=== PATIENT | female | born 1970 | race Caucasian/White ===

== ENCOUNTER → 2020-07-19 18:01 | Outpatient (BNVA) | payer BC, SELFPAY | PROVIDERS: Visit Provider Family Medicine | DX: M21.41 Flat foot [pes planus] (acquired), right foot; M21.42 Flat foot [pes planus] (acquired), left foot; M25.50 Pain in unspecified joint | CPT/HCPCS: 84550; 85651; 86038; 86431 ==

== ENCOUNTER 2020-07-28 16:47 | Emergency (ER) | payer BC, SELFPAY ==
[2020-07-28 18:16] LABS: Basophils % 0.3 %; Eosinophils # 0.2 10^3/uL (0.0-0.8); Eosinophils % 1.3 %; Hematocrit 36.8 % (37.0-47.0); Hemoglobin 12.2 g/dL (11.5-15.3); Lymphocytes # 3.7 10^3/uL (0.8-4.8); Lymphocytes % 30.2 %; Mean Corpuscular HGB Conc 33.2 g/dL (30.0-36.0); Mean Corpuscular Hemoglobin 30.7 pg (28.0-34.0); Mean Corpuscular Volume 92.7 fL (81-99); Mean Platelet Volume 9.5 fL (7.4-10.4); Monocytes # 0.7 10^3/uL (0.2-0.9); Monocytes % 5.8 %; Neutrophils # 7.64 10^3/uL (1.8-7.7); Neutrophils % 62.2 %; Nucleated Red Blood Cells % 0 %; Platelet Count 367 10^3/cmm (130-400); Red Blood Count 3.97 10^6/uL (4.1-5.3); Red Cell Distribution Width 13.2 % (12.1-15.1); White Blood Count 12.3 10^3/uL (4.0-10.0)
[2020-07-28 18:18] VITALS: BP 116/79; PULSE 74; RESP 16; TEMP 37.2; O2SAT 99; BMI 41.1
[2020-07-28 18:31] LABS: Anion Gap 14.8 (5-19); Blood Urea Nitrogen 7 mg/dL (6-20); Calcium 9.7 mg/dL (8.5-10.5); Carbon Dioxide 26 mmol/L (22-29); Chloride 100 mmol/L (98-107); Creatinine Clr Calc Pharmacy 124.1276; Glomerular Filtration Rate 105.4 mL/min (90-130); Glucose 99 mg/dL (65-115); Osmolality Calculated 282 mOsm/kg (285-295); Potassium 3.8 mmol/L (3.5-5.1); Sodium 137 mmol/L (136-145)
[2020-07-28 19:48] VITALS: BP 124/80; PULSE 72; RESP 16; TEMP 36.8; O2SAT 99
[2020-07-28 22:51] VITALS: BP 119/77; PULSE 66; RESP 15; O2SAT 98
== END 2020-07-28 23:21 | disposition left against medical advice (07) ==
LOC: ER 16:59
PROVIDERS: Emergency Provider Family Medicine
DX: Z53.21 Procedure and treatment not carried out due to patient leaving prior to being seen by health care provider (principal)
CPT/HCPCS: 36415; 80048; 85025; 99281

== ENCOUNTER → 2020-08-02 10:29 | Outpatient (BNVA) | payer BC, SELFPAY | PROVIDERS: Visit Provider Family Medicine | DX: R30.0 Dysuria (principal); M10.9 Gout, unspecified; R10.9 Unspecified abdominal pain | CPT/HCPCS: 81000; 81003; 84550 ==

== ENCOUNTER → 2020-08-29 11:13 | Outpatient (BNVA) | payer BC, SELFPAY | PROVIDERS: Referring Provider Family Medicine; Visit Provider Podiatrist Foot & Ankle Surgery | DX: M79.671 Pain in right foot (principal); M79.672 Pain in left foot | CPT/HCPCS: 73630 ==

== ENCOUNTER → 2020-09-29 14:32 | Outpatient (BNVA) | payer BC, SELFPAY | PROVIDERS: PCP Family Medicine; Visit Provider Nurse Practitioner Family | DX: M77.32 Calcaneal spur, left foot (principal); M79.671 Pain in right foot; M79.672 Pain in left foot | CPT/HCPCS: 73610; 73630 ==

== ENCOUNTER → 2020-10-26 11:16 | Outpatient (BNVA) | payer BC, SELFPAY | PROVIDERS: PCP Family Medicine; Visit Provider Nurse Practitioner Family | DX: Z20.828 Contact with and (suspected) exposure to other viral communicable diseases (principal); J06.9 Acute upper respiratory infection, unspecified | CPT/HCPCS: 87635 ==

== ENCOUNTER → 2020-11-09 15:08 | Outpatient (BNVA) | payer BC, SELFPAY | PROVIDERS: PCP Family Medicine; Visit Provider Podiatrist Foot & Ankle Surgery | DX: M79.672 Pain in left foot (principal) | CPT/HCPCS: 73610; 73630 ==

== ENCOUNTER 2020-11-09 15:46 | Outpatient (CLI) | payer BC, SELFPAY | END 2020-11-09 15:47 | disposition home or self-care (01) | LOC: SPT 15:46 | PROVIDERS: PCP Family Medicine; Visit Provider Podiatrist Foot & Ankle Surgery | DX: Z46.89 Encounter for fitting and adjustment of other specified devices (principal); S82.891D Other fracture of right lower leg, subsequent encounter for closed fracture with routine healing; X58.XXXD Exposure to other specified factors, subsequent encounter | CPT/HCPCS: 97760; L4361 ==

== ENCOUNTER → 2020-11-29 09:39 | Outpatient (BNVA) | payer BC, SELFPAY | PROVIDERS: PCP Family Medicine; Visit Provider Podiatrist Foot & Ankle Surgery | DX: M25.571 Pain in right ankle and joints of right foot (principal) | CPT/HCPCS: 73610 ==

== ENCOUNTER 2020-11-29 11:12 | Outpatient (CLI) | payer BC, SELFPAY | END 2020-11-29 11:13 | disposition home or self-care (01) | LOC: SPT 11:12 | PROVIDERS: PCP Family Medicine; Visit Provider Podiatrist Foot & Ankle Surgery | DX: Z46.89 Encounter for fitting and adjustment of other specified devices (principal); S82.891D Other fracture of right lower leg, subsequent encounter for closed fracture with routine healing; X58.XXXD Exposure to other specified factors, subsequent encounter | CPT/HCPCS: 97760; L1902 ==

== ENCOUNTER → 2021-01-19 13:22 | Outpatient (BNVA) | payer BC, SELFPAY | PROVIDERS: PCP Family Medicine; Visit Provider Family Medicine | DX: Z00.00 Encounter for general adult medical examination without abnormal findings (principal) | CPT/HCPCS: 80053; 80061; 84443; 85025 ==

== ENCOUNTER 2021-02-02 11:06 | Outpatient (CLI) | payer BC, SELFPAY ==
--- NOTE | 2021-02-02 11:30 | MM_ITS ---
WS: [id number] BILATERAL SCREENING DIGITAL MAMMOGRAM WITH CAD HISTORY: Z12.31 - Encounter for screening mammogram for malignant neoplasm of breast COMPARISON: None available. Bilateral CC and MLO views submitted. Computer aided detection analyzed. Breast composition: There are scattered areas of fibroglandular density. No suspicious masses, microc alcifications or architectural distortion. MM/[place] [id number] IMPRESSION: BI-RADS: 1-Negative FOLLOW UP: 1 Year Follow-up
== END 2021-02-02 11:07 | disposition home or self-care (01) ==
LOC: RADSHAW 11:09
PROVIDERS: PCP Family Medicine; Visit Provider Family Medicine
DX: Z12.31 Encounter for screening mammogram for malignant neoplasm of breast (principal)
CPT/HCPCS: 77067

== ENCOUNTER 2021-02-28 10:54 | Emergency (ER) | payer BC, SELFPAY ==
[2021-02-28 11:20] VITALS: BP 149/102; PULSE 67; RESP 18; TEMP 36.3; O2SAT 99; BMI 41.1
--- NOTE | 2021-02-28 12:14 | W.ED.HEATRA ---
HPI - Head Injury General: Chief complaint: Head Injury Stated complaint: HEAD INJURY Time Seen by Provider: 02/28/21 12:11 History of Present Illness: HPI Narrative: 50-year-old female comes in with a head injury. She states yesterday evening she hit the top of her head on a dormer of her windows. She states that she may have been out for a few seconds. She states her had to shake her to wake her up. She states she feels like there is a hot poker and tingling in her head. She denies any bleeding. This morning when she woke up the room was spinning. She was having nausea and vomited twice. She states she is having some blurring and double vision. She has difficulty and concentrating. She denies any difficulty breathing. No abdominal flank pain. No pain or burning with urination. No weakness on one side of the other, no lateralizing signs. She has not had problems like this previously. Complaint: head injury Onset (ago): day(s) (Last night.) Mechanism of Injury: other (She raised up into a dormer and hit the top of her head.) Place: home Loss of Consciousness: yes (Maybe only a few seconds.) Location of injury: parietal Severity: moderate Quality: sharp (Feels like a hot poker.) and tingling Radiation: none Other Injuries: none Associated symptoms: Reports confusion (She feels like she can concentrate), nausea, visual changes and vomiting; Deny amnesia, neck pain, numbness, syncope, tingling, vertigo or weakness Review of Systems General: Reports: 10 or more systems reviewed and unremarkable except in HPI and below Narrative: 50 yo female comes Card: Denies: syncope GI: Reports: nausea and vomiting Musc: Denies: neck pain Neuro: Reports: confusion (She feels like she can concentrate); Denies: vertigo PFS ED PFSH: Medical History Acute adjustment disorder with anxiety Fibromyalgia PTSD (post-traumatic stress disorder) Vertigo Surgical History History of appendectomy History of hysterectomy for benign disease History of laparoscopic cholecystectomy Family History Father Diabetes Denies family history of Dementia Cancer Social History Smoking and tobacco status: former smoker Second hand smoke exposure: No Alcohol intake: former Lives independently: Yes Household members: spouse Marital status: Highest education level completed: Some College, No Degree Current occupational status: unemployed History of recent travel: No Current gender identity: Female Physical Exam Const: COMMON NORMALS: patient oriented x3 and alert GENERAL APPEARANCE: well kempt; not lethargic ORIENTATION/CONSCIOUSNESS: Yes oriented to person, Yes oriented to place and Yes oriented to time; not lethargic HENMT: COMMON NORMALS: normocephalic and hearing grossly normal bilaterally HEAD & SCALP: normocephalic and scalp tenderness; no hematoma and no laceration HEAD IMAGES: 1. Mild tenderness, no abrasion laceration noted. FACE & SINUS: normal facial exam, sinuses nontender and face symmetric; no sinus tenderness and no abrasion Eye: COMMON NORMALS: Equal, round and reactive pupils present, EOMs intact bilaterally, conjunctivae normal and no scleral icterus GENERAL EYE: appearance normal, both eyes and all related structures and normal light reflex CONJUNCTIVA: Yes conjunctivae normal PUPIL: Yes Equal, round and reactive pupils present DIRECT OPHTHALMOSCOPY: Yes normal light reflex Neck/C-Spine: COMMON NORMALS: full ROM, no lymphadenopathy, supple, no meningeal signs, no JVD and Thyroid normal GENERAL: Yes normal visual inspection, Yes trachea midline, No anterior neck swelling, No lymphadenopathy and No tender THYROID: Thyroid normal CERVICAL SPINE: Yes cervical ROM normal Resp: COMMON NORMALS: normal respiratory effort, No retractions, No use of accessory muscles and clear to auscultation bilaterally EFFORT & INSPECTION: Yes able to speak in complete sentences AUSCULTATION: clear to auscultation bilaterally Cardio: COMMON NORMALS: no JVD, regular rate, regular rhythm, No gallops present (Cardio), No murmurs present (Cardio) and No rub (Cardio) RATE: regular rate RHYTHM: regular rhythm GI: COMMON NORMALS: Soft to palpation and non-tender PALPATION: Yes Soft to palpation : COMMON NORMALS: Yes no CVA tenderness BLADDER/KIDNEY EXAM: Yes no CVA tenderness Back/Pelvis: COMMON NORMALS: no CVA tenderness Extremity: COMMON NORMALS: normal to inspection, full ROM, no joint enlargement, no clubbing, cyanosis or edema, no calf tenderness and no pedal edema Neuro: COMMON NORMALS: patient oriented x3, CN's II-XII intact bilaterally, moves all extremities, no focal motor deficits, no sensory deficits noted and gait normal SENSORIUM/ORIENTATION: Yes alert, Yes oriented to person, Yes oriented to place, Yes oriented to time, No lethargic, No somnolent, No obtunded and No stuporous MENINGEAL SIGNS: Yes no meningeal signs and No nuccal rigidity SPEECH: speech normal GAIT: Yes Normal gait present Psych: COMMON NORMALS: mental status grossly normal, Normal thought process present, cooperative, normal affect, speech normal and activity/motor behavior normal APPEARANCE: Yes grossly normal and Yes well kempt ATTITUDE: Yes calm and Yes engaged ACTIVITY/MOTOR BEHAVIOR: Yes appropriate eye contact SPEECH: Yes normal speech THOUGHT PROCESS: Normal thought process present Skin: COMMON NORMALS: no rashes or lesions noted and no wounds GENERAL SKIN EXAM: no rashes or lesions noted Course Vital Signs: Vital signs: Vital Signs Temperature 97.3 F L 02/28/21 11:20 Pulse Rate 68 02/28/21 15:38 Respiratory Rate 18 02/28/21 15:38 Blood Pressure 142/99 02/28/21 15:38 Pulse Oximetry 68 L 02/28/21 15:38 Discharge Plan Discharge Patient Disposition: Home Clinical Impression: Head injury Qualifiers: Encounter type: initial encounter Qualified Code(s): S09.90XA - Unspecified injury of head, initial encounter Concussion Qualifiers: Encounter type: initial encounter Loss of consciousness presence/duration: with LOC of unspecified duration Qualified Code(s): S06.0X9A - Concussion with loss of consciousness of unspecified duration, initial encounter Condition: Stable Prescriptions: New Zofran 4 mg tablet 4 mg PO Q6H PRN (Reason: nausea and vomiting) Qty: 14 RF: 0 No Action sumatriptan succinate 100 mg tablet See Rx Instructions PO .COMPLEX Qty: 14 RF: 3 Ventolin HFA 90 mcg/actuation Hfa Aerosol Inhaler 2 puff INHALATION Q4H PRN (Reason: Shortness Of Breath) RF: 0 Collagen Hair Skin Nails 3 cap PO DAILY RF: 0 lorazepam 0.5 mg tablet 0.5 mg PO BEDTIME RF: 0 meclizine 25 mg tablet 25 mg PO BID PRN (Reason: Dizziness) RF: 0 krill oil 500 mg capsule 500 mg PO QAM RF: 0 multivitamin Tablet 1 tab PO DAILY RF: 0 Discharge Orders: Discharge ED (Routine); Ordered 02/28/21 Ordered By: Bill Ness Referrals: Dione Muller MD [Primary Care Provider] - Discharge Diet: Advance as tolerated Discharge Activity: Limit activity as instructed Patient Instructions: Opioid Safety Activity Restrictions/Additional Instructions: Increase noncaffeine/nonalcoholic fluids. Continue your other medications as prescribed. Follow-up with your primary care provider. Limit activity until cleared by your primary care provider. Coding Level of Care Code ED Tunnel Heading Inspector for Chg Fwd Exam Comprehensive
--- NOTE | 2021-02-28 12:36 | CT_ITS ---
WS: [id number] CT HEAD NONCONTRAST HISTORY: head injury, dizzy TECHNIQUE: Contiguous axial imaging performed through the brain in 2.5 mm imaging. Bone and soft tiss ue windows. Sagittal and coronal reformats reviewed. All CT scans at [facility] use at le ast one of these dose optimization techniques: automated exposure control; mA and/or kV adjustment pe r patient size (includes targeted exams where dose is matched to clinical indication); or iterative r econstruction. DLP: 885.49 mGy.cm COMPARISON: None available. No acute intracranial hemorrhage, midline shift or mass effect. No atrophy or prior infarcts or herniation. Ventricles: Normal size with no hydrocephalus. Paranasal sinuses: As visualized are clear. Mastoid air cells: Well pneumatized. Calvarium and scalp: Skull is intact with no soft tissue edema or swelling. CT/CT head wo con* [id number] IMPRESSION: Negative head CT.
[2021-02-28] MEDS: ketorolac 60 mg/2 mL INJ IM (14:30)
[2021-02-28] MEDS: ondansetron 4 MG Tablet PO (14:31)
[2021-02-28 15:38] VITALS: BP 142/99; PULSE 68; RESP 18; O2SAT 68
== END 2021-02-28 15:39 | disposition home or self-care (01) ==
PROVIDERS: Emergency Provider Emergency Medicine; PCP Family Medicine
DX: S06.0X9A Concussion with loss of consciousness of unspecified duration, initial encounter (principal); Z87.891 Personal history of nicotine dependence; W22.8XXA Striking against or struck by other objects, initial encounter
CPT/HCPCS: 70450; 96372; 99283; J1885; Q0162

== ENCOUNTER 2021-04-12 10:32 | Emergency (ER) | payer BC, SELFPAY ==
[2021-04-12 11:03] VITALS: BP 155/90; PULSE 80; RESP 16; TEMP 36.5; O2SAT 96; BMI 37.9
--- NOTE | 2021-04-12 11:15 | XR_ITS ---
WS: [id number] Left knee, 3 views, 04/12/2021 Clinical Data: knee pain after fall Comparison: None. Findings: No fractures or dislocations are seen. There is minimal lateral joint compartment narrowing with a sp ur of the lateral femoral condyle.. The patella is intact. The soft tissues are unremarkable. XR/XR knee LT 3V* [id number] Impression: 1. Negative for left knee fracture. 2. Minimal osteoarthritis of the medial joint compartment of the left knee. Kellgren-Jeff Classification: grade 2 (minimal): definite osteophytes and p ossible joint space narrowing
--- NOTE | 2021-04-12 11:15 | XR_ITS ---
WS: [id number] Left hip, AP and frog-leg views, AP pelvis, 04/12/2021 Clinical Data: fall Comparison: None. Findings: No fractures or dislocations are seen. The hip joints are intact. The soft tissues are not remarkable . The pelvis is normal. The SI joints and pubic symphysis show no significant abnormalities. XR/XR hip LT 2-3V wo/w pel* [id number] Impression: Negative pelvis and left hip. Tonnis classification: grade 0: normal radiographs of both hips
--- NOTE | 2021-04-12 11:16 | ED_ITS ---
HPI - Extremity Problem General: Chief complaint: Extremity Injury, Lower Stated complaint: left leg and left knee injury post fall Time Seen by Provider: 04/12/21 11:09 History of Present Illness: HPI Narrative: The patient is a 50-year-old female who comes to the ER after tripping over her dog. She says she has chronic meniscus issues with her knees and wraps them frequently. Today to Dr. Bejarano she tripped and fell backwards on her left hip and her knee bent backwards coming out of socket she felt and to the side where it is not supposed to go. She got up and wrapped her knee and came to the ER. Took no pain medications. She says she is smokes cannabis for pain control chronically. Complains of left hip and left knee pain. MD Complaint: joint swelling and joint pain Pain Consistency: constant Location: left Quality: sharp Radiation: none Relieving factors: rest Exacerbating factors: range of motion and weight bearing Associated symptoms: Deny chest pain or rash Review of Systems General: Reports: 10 or more systems reviewed and unremarkable except in HPI and below Const: Denies: fatigue Eyes: Denies: change in vision, blurry vision or eye redness ENMT: Denies: throat pain, swelling of lips/tongue, ear or mastoid pain or nasal congestion Card: Denies: chest pain, palpitations, irregular heart rhythm, edema, dyspnea on exertion or orthopnea Resp: Denies: dyspnea, productive cough or non-productive cough GI: Denies: abdominal pain, diarrhea or GI cramping : Denies: flank pain, difficulty voiding, urinary frequency or urinary urgency Musc: Reports: joint pain; Denies: neck pain, back pain, extremity pain, joint redness, limited range of motion or muscle weakness Skin/Breast: Denies: rash, pruritus, erythema, skin pain or skin tenderness Neuro: Denies: headache(s), numbness in extremities, weakness in extremities, sensory changes, difficulty walking, dizziness, confusion or Slurred speech present Psych: Denies: anxiety or depression Endo: Denies: polyuria All/Imm: Denies: urticaria, throat swelling or tongue swelling PFS ED PFSH: Medical History Acute adjustment disorder with anxiety Fibromyalgia PTSD (post-traumatic stress disorder) Vertigo Surgical History History of appendectomy History of hysterectomy for benign disease History of laparoscopic cholecystectomy Family History Father Diabetes Denies family history of Dementia Cancer Social History (Updated 04/12/21 @ 11:09 by Bert Wright RN) Smoking and tobacco status: former smoker Second hand smoke exposure: No Alcohol intake: former Lives independently: Yes Household members: spouse Marital status: Highest education level completed: Some College, No Degree Current occupational status: unemployed History of recent travel: No Current gender identity: Female Physical Exam Const: COMMON NORMALS: no acute distress, average body habitus, patient oriented x3, no limitations, healthy appearing, alert and well nourished GENERAL APPEARANCE: cooperative, comfortable, well kempt and well developed ORIENTATION/CONSCIOUSNESS: Yes awake, Yes oriented to person, Yes oriented to place and Yes oriented to time HENMT: COMMON NORMALS: normocephalic, external ears normal and Normal external nose present HEAD & SCALP: normal to inspection and normocephalic NOSE: Normal external nose present EXTERNAL EAR: Yes external ears normal MOUTH: Normal oral and palatal mucosa present THROAT: posterior oropharynx normal Eye: COMMON NORMALS: Equal, round and reactive pupils present and EOMs intact bilaterally GENERAL EYE: appearance normal, both eyes and all related structures PUPIL: Yes Equal, round and reactive pupils present Neck/C-Spine: COMMON NORMALS: full ROM, no lymphadenopathy, no meningeal signs and no JVD GENERAL: Yes normal visual inspection Lymph: LYMPHATIC: no lymphadenopathy noted Chest: COMMONS NORMALS: normal inspection of the chest and normal palpation of entire chest wall Resp: COMMON NORMALS: normal respiratory effort, No retractions, No use of accessory muscles, clear to auscultation bilaterally and percussion normal EFFORT & INSPECTION: Yes able to speak in complete sentences AUSCULTATION: clear to auscultation bilaterally PERCUSSION: percussion normal Cardio: COMMON NORMALS: no JVD, regular rate, regular rhythm, S1 normal heart sound present, S2 normal heart sound present and Peripheral pulses 2+ throughout RATE: regular rate RHYTHM: regular rhythm HEART SOUNDS: S1 normal heart sound present and S2 normal heart sound present PERIPHERAL PULSES: Peripheral pulses 2+ throughout GI: COMMON NORMALS: Normal to inspection, nondistended, normoactive bowel sounds present, Soft to palpation, non-tender and no masses INSPECTION: Yes normal to inspection PALPATION: Yes Soft to palpation : COMMON NORMALS: Yes no CVA tenderness BLADDER/KIDNEY EXAM: Yes no CVA tenderness Back/Pelvis: COMMON NORMALS: no CVA tenderness, thoracic and lumbar spine normal to inspection, no thoracic nor lumbar tenderness and thoraco-lumbar ROM normal Extremity: COMMON NORMALS: normal to inspection, full ROM, capillary refill normal, no joint enlargement and no pedal edema NARRATIVE EXTREMITY EXAM: Left knee pain swelling and tenderness. Major ligaments intact. Milder tenderness to left hip and iliac crest. Again range of motion intact. GENERAL: Yes normal exam except as noted Neuro: COMMON NORMALS: patient oriented x3, CN's II-XII intact bilaterally, moves all extremities, no focal motor deficits, no sensory deficits noted and gait normal SENSORIUM/ORIENTATION: Yes alert, Yes oriented to person, Yes oriented to place and Yes oriented to time MENINGEAL SIGNS: Yes no meningeal signs Psych: COMMON NORMALS: mental status grossly normal, Normal thought process p resent, cooperative, normal affect and speech normal APPEARANCE: Yes well kempt ATTITUDE: Yes calm SPEECH: Yes normal speech THOUGHT PROCESS: Normal thought process present Skin: COMMON NORMALS: no rashes or lesions noted GENERAL SKIN EXAM: no rashes or lesions noted Course Vital Signs: Vital signs: Vital Signs Temperature 97.7 F 04/12/21 11:03 Pulse Rate 80 04/12/21 11:03 Respiratory Rate 16 04/12/21 11:03 Blood Pressure 155/90 04/12/21 11:03 Pulse Oximetry 96 04/12/21 11:03 MDM - Extremity (Nontraumatic) MDM Narrative: Medical decision making narrative: her x-rays were negative for fracture. Her symptoms are more consistent with meniscal disease and ligamentou s injury. She has a knee brace she can wear at home and crutches she can use as well. Recommended she take Tylenol for pain and follow-up with orthopedic surgery. I placed a case management referral to help her get an appointment. She will also call her primary care physician and ask for an MRI of that knee ideally done before the orthopedic visit. ER with worsening symptoms at any time Discharge Plan Discharge Patient Disposition: Home Clinical Impression: Acute knee pain Condition: Stable Prescriptions: No Action sumatriptan succinate 100 mg tablet See Rx Instructions PO .COMPLEX Qty: 14 RF: 3 Ventolin HFA 90 mcg/actuation Hfa Aerosol Inhaler 2 puff INHALATION Q4H PRN (Reason: Shortness Of Breath) RF: 0 Collagen Hair Skin Nails 3 cap PO DAILY RF: 0 lorazepam 0.5 mg tablet 0.5 mg PO BEDTIME RF: 0 meclizine 25 mg tablet 25 mg PO BID PRN (Reason: Dizziness) RF: 0 krill oil 500 mg capsule 500 mg PO QAM RF: 0 multivitamin Tablet 1 tab PO DAILY RF: 0 Zofran 4 mg tablet 4 mg PO Q6H PRN (Reason: nausea and vomiting) Qty: 14 RF: 0 Discharge Orders: Discharge ED (Routine); Ordered 04/12/21 Ordered By: Riaz Epps Referrals: Dione Muller MD [Primary Care Provider] - Discharge Diet: Advance as tolerated Discharge Activity: Limit activity as instructed Patient Instructions: Knee Pain (ED), Opioid Safety Activity Restrictions/Additional Instructions: You have injured your knee. X-rays are negative for acute fracture. Please call your primary care physician and have him order an MRI of your left knee. I have also placed a case management referral to help you get an appointment with an orthopedic surgeon after you have the MRI done. Return to the ER at anytime with worsening symptoms otherwise take Tylenol for pain and limit your activity to what she can tolerate with pain. Avoid activities likely to injure your knee further. You may wear the brace you have at home to help and crutches. Coding Level of Care Code ED [employer] Developer for Reece Barnes Exam Comprehensive
[2021-04-12] MEDS: ondansetron 2 mg/ML SDV 2 mL 4 MG IM (12:10)
[2021-04-12] MEDS: ketorolac 30 mg/mL INJ IM (12:11)
--- NOTE | 2021-04-13 10:24 | DCPLANNER ---
senior payroll manager had message to schedule a follow up appointment for patient with ortho for left knee pain. senior payroll manager called the ortho clinic, spoke with Grace, gave clinic patients information. senior payroll manager was told that patients information would be printed and reviewed. Clinic will call patient with appointment information.
--- NOTE | 2021-04-30 07:46 | DCPLANNER ---
Patient has a follow up appointment scheduled for Saturday, May 08, 2021 at 8:[address] Jordan at [facility]. Clinic will call patient with appointment information.
--- NOTE | 2021-05-17 07:38 | DCPLANNER ---
Patient had a follow up appointment scheduled for 05.08.21 with ortho - appointment was rescheduled.
== END 2021-04-12 13:30 | disposition home or self-care (01) ==
PROVIDERS: Emergency Provider Family Medicine; PCP Family Medicine
DX: M25.562 Pain in left knee (principal); Z87.891 Personal history of nicotine dependence
CPT/HCPCS: 73502; 73562; 96372; 99283; J1885; J2405

== ENCOUNTER 2021-05-17 17:12 | Outpatient (CLI) | payer BC, SELFPAY ==
--- NOTE | 2021-05-17 17:30 | MR_ITS ---
WS: [id number] MRI LEFT KNEE NONCONTRAST TECHNIQUE: Axial PD, coronal PD fat sat, coronal PD, sagittal PD, and sagittal PD fat-sat images obta ined. CLINICAL INFORMATION: acute left knee pain COMPARISON: None. FINDINGS: Distal quadriceps and patella tendons are intact. Hypertrophic patella. Normal ACL and PCL. Prepatell ar and infrapatellar soft tissue edema. Small suprapatellar effusion. Small amount of edema in Hoffa' s fat pad. Lateral meniscus is normal. Chronic appearing intrasubstance signal abnormality involving the medial meniscus. Suspected postoperative changes involving the medial meniscus. Correlate with cl inical history. Moderate joint space narrowing involving the medial and lateral joint compartments with edema in the medial tibial plateau. Grade 1-2 injury involving the MCL with fluid and edema along the deep and sup erficial fibers. Normal lateral collateral ligament. Moderate chondromalacia patella. No subchondral edema. Mild hypertrophic changes along the joint line. MR/MR knee LT wo con* [id number] IMPRESSION: 1. Normal ACL and PCL. 2. No acute appearing meniscal tears. Chronic intrasubstance signal abnormalit y involving the medial meniscus with suspected prior postoperative changes. 3. Subchondral edema involving the medial tibial plateau likely due to recent trauma with contusion. 4. Grade 1-2 injury involving the MCL which appears grossly intact. Normal LCL . 5. Moderate to advanced chondromalacia patella advanced for patient this age. No subchondral edema. 6. Moderate soft tissue edema about the knee with prepatellar and infrapatella r soft tissue edema. 7. Small suprapatellar effusion. Outbridge grading: grade III: partial-thickness cartilage loss with focal ulcer ation
== END 2021-05-17 17:13 | disposition home or self-care (01) ==
PROVIDERS: PCP Family Medicine; Visit Provider Family Medicine
DX: M25.562 Pain in left knee (principal); J90 Pleural effusion, not elsewhere classified; R60.0 Localized edema; M22.42 Chondromalacia patellae, left knee
CPT/HCPCS: 73721

== ENCOUNTER 2021-05-29 06:00 | Outpatient (RCR) | payer BC, SELFPAY | END 2021-06-19 23:59 | disposition home or self-care (01) | LOC: TPT 06:00 | PROVIDERS: PCP Family Medicine; Referring Provider Orthopaedic Surgery; Visit Provider Orthopaedic Surgery | DX: M17.12 Unilateral primary osteoarthritis, left knee (principal) | CPT/HCPCS: 97110; 97162 ==

== ENCOUNTER → 2021-07-25 16:21 | Outpatient (BNVA) | payer BC, SELFPAY | PROVIDERS: PCP Family Medicine; Visit Provider Family Medicine | DX: M79.644 Pain in right finger(s) (principal); M19.041 Primary osteoarthritis, right hand | CPT/HCPCS: 73140 ==

== ENCOUNTER → 2021-10-01 15:52 | Outpatient (BNVA) | payer BC, SELFPAY | PROVIDERS: PCP Family Medicine; Visit Provider Family Medicine | DX: Z00.00 Encounter for general adult medical examination without abnormal findings (principal); E78.1 Pure hyperglyceridemia | CPT/HCPCS: 80053; 80061; 84443; 85025 ==

== ENCOUNTER → 2021-11-19 17:12 | Outpatient (BNVA) | payer BC, SELFPAY | PROVIDERS: PCP Family Medicine; Visit Provider Family Medicine | DX: M25.561 Pain in right knee (principal); M17.11 Unilateral primary osteoarthritis, right knee | CPT/HCPCS: 73562 ==

== ENCOUNTER → 2021-12-27 08:40 | Outpatient (BNVA) | payer BC, SELFPAY | PROVIDERS: PCP Family Medicine; Visit Provider Nurse Practitioner Family | DX: Z20.822 Contact with and (suspected) exposure to COVID-19 (principal) | CPT/HCPCS: 87635 ==

== ENCOUNTER → 2022-02-12 13:52 | Outpatient (BNVA) | payer BC, SELFPAY | PROVIDERS: PCP Family Medicine; Visit Provider Family Medicine | DX: M54.50 Low back pain, unspecified (principal); E78.1 Pure hyperglyceridemia | CPT/HCPCS: 80053; 80061; 81000; 85025 ==

== ENCOUNTER 2022-03-25 10:15 | Outpatient (CLI) | payer BC, SELFPAY ==
--- NOTE | 2022-03-25 10:22 | MM_ITS ---
WS: [id number] DIAGNOSTIC BILATERAL DIGITAL BREAST TOMOSYNTHESIS MAMMOGRAPHY WITH CAD Bilateral breast ultrasound, limited. HISTORY: OTIS BREAST LUMPS COMPARISON: 02/02/2021 TECHNIQUE: Bilateral craniocaudad, mediolateral oblique, and mediolateral views are submitted with to mosynthesis and SM. Spot compression views RIGHT and LEFT breast. Computer aided detection utilized. Breast composition: There are scattered areas of fibroglandular density. Triangular marker LEFT breas t at 4:00 and RIGHT breast at 6:00 demonstrates no underlying abnormality. These areas will be furthe r evaluated by ultrasound. There is an asymmetry measuring about 8 mm seen only on the RIGHT CC proje ction in the lateral breast at a mid to posterior depth. Not definitely visualized on the lateral. Bilateral breast ultrasound. RIGHT breast: At 6:00 in the palpable area and no abnormality is identified. In the RIGHT breast at 1 0:00, 4 cm from the nipple is a hypoechoic irregular mass with shadowing measuring 4 x 8 x 4 mm which corresponds to the mammographic abnormality. Abnormal lymph node towards the RIGHT axillary tail, 6 cm from the nipple. There is asymmetry of the hilum and increased vascularity. Vascularity is still c entered at the hilum but there is marked cortical thickening involving 50% of the lymph node. LEFT breast: Ultrasound directed to 4:00. No abnormality is identified in the palpable region. MM/[place] [id number] IMPRESSION: BI-RADS: 4-Suspicious Finding-Biopsy Should Be Considered FOLLOW UP: Biopsy Recommended Ultrasound-guided biopsy recommended RIGHT breast mass at 10:00. Ultrasound-guided biopsy abnormal RIGHT breast lymph node at the axillary tail. Notified Dione Muller MD at 03/25/2022 12:23 PM.
--- NOTE | 2022-03-25 11:00 | US_ITS ---
WS: [id number] DIAGNOSTIC BILATERAL DIGITAL BREAST TOMOSYNTHESIS MAMMOGRAPHY WITH CAD Bilateral breast ultrasound, limited. HISTORY: OTIS BREAST LUMPS COMPARISON: 02/02/2021 TECHNIQUE: Bilateral craniocaudad, mediolateral oblique, and mediolateral views are submitted with to mosynthesis and SM. Spot compression views RIGHT and LEFT breast. Computer aided detection utilized. Breast composition: There are scattered areas of fibroglandular density. Triangular marker LEFT breas t at 4:00 and RIGHT breast at 6:00 demonstrates no underlying abnormality. These areas will be furthe r evaluated by ultrasound. There is an asymmetry measuring about 8 mm seen only on the RIGHT CC proje ction in the lateral breast at a mid to posterior depth. Not definitely visualized on the lateral. Bilateral breast ultrasound. RIGHT breast: At 6:00 in the palpable area and no abnormality is identified. In the RIGHT breast at 1 0:00, 4 cm from the nipple is a hypoechoic irregular mass with shadowing measuring 4 x 8 x 4 mm which corresponds to the mammographic abnormality. Abnormal lymph node towards the RIGHT axillary tail, 6 cm from the nipple. There is asymmetry of the hilum and increased vascularity. Vascularity is still c entered at the hilum but there is marked cortical thickening involving 50% of the lymph node. LEFT breast: Ultrasound directed to 4:00. No abnormality is identified in the palpable region. US/US breast BI limited* [id number] IMPRESSION: BI-RADS: 4-Suspicious Finding-Biopsy Should Be Considered FOLLOW UP: Biopsy Recommended Ultrasound-guided biopsy recommended RIGHT breast mass at 10:00. Ultrasound-guided biopsy abnormal RIGHT breast lymph node at the axillary tail. Notified Dione Muller MD at 03/25/2022 12:23 PM.
== END 2022-03-25 10:16 | disposition home or self-care (01) ==
PROVIDERS: PCP Family Medicine; Visit Provider Family Medicine
DX: N63.20 Unspecified lump in the left breast, unspecified quadrant (principal); N63.31 Unspecified lump in axillary tail of the right breast
CPT/HCPCS: 76642; 77062

== ENCOUNTER 2022-04-08 07:27 | Outpatient (CLI) | payer BC, SELFPAY ==
--- NOTE | 2022-04-08 | US_ITS ---
WS: [id number] ULTRASOUND-GUIDED RIGHT BREAST BIOPSY ULTRASOUND-GUIDED RIGHT LYMPH NODE BIOPSY HISTORY: N63.0 - Unspecified lump in unspecified breast, abnormal RIGHT lymph node. COMPARISON: 03/25/2022 Procedure, risks and complications are explained to the patient. Medications are reviewed. Consent is obtained. The mass in the RIGHT breast is localized with ultrasound. Mass localizes at 10:00, 4 cm from the nip ple. Skin is cleansed with ChloraPrep and anesthetized with 1% buffered lidocaine. Small dermatome is made. Under sterile conditions mass is biopsied with a 14-gauge Achieve needle. Multiple core biopsi es are performed. Material placed in formalin and sent to pathology for review. No complications enco untered. Abnormal, asymmetric lymph nodes in the RIGHT breast towards the axillary tail is biopsied also. Lymp h node is at 11:00, 6 cm from the nipple towards the axilla. Biopsy is performed with a 20-gauge need le. Multiple biopsies are performed. Specimen placed in saline. Breast tissue marker, RIGHT breast at 10:00. (Bard ultrasound enhanced ribbon): Single. Breast tissue marker, RIGHT lymph node axillary tail, 11:00. (Newsgrape ultrasound enhanced ribbon): Singl e. Patient left the radiology suite with no complications. Patient is instructed to return to [facility] or [facility] with any concerns. US/US biopsy lymph node breast/ax IMPRESSION: 1. Uncomplicated core needle biopsy RIGHT breast mass at 10:00, 4 cm from the nipple. PATHOLOGY: Poorly differentiated invasive ductal carcinoma. Lympho- vascular in vasion identified. RECOMMENDATION: Surgical and oncologic follow-up. 2. Uncomplicated core needle biopsy RIGHT axillary lymph node narrowed 11:00, 6 cm from the nipple. PATHOLOGY: Positive for malignancy. Poorly differentiated invasive ductal carci noma. RECOMMENDATION: Surgical and oncologic follow-up.
--- NOTE | 2022-04-08 07:39 | US_ITS ---
WS: [id number] ULTRASOUND-GUIDED RIGHT BREAST BIOPSY ULTRASOUND-GUIDED RIGHT LYMPH NODE BIOPSY HISTORY: N63.0 - Unspecified lump in unspecified breast, abnormal RIGHT lymph node. COMPARISON: 03/25/2022 Procedure, risks and complications are explained to the patient. Medications are reviewed. Consent is obtained. The mass in the RIGHT breast is localized with ultrasound. Mass localizes at 10:00, 4 cm from the nip ple. Skin is cleansed with ChloraPrep and anesthetized with 1% buffered lidocaine. Small dermatome is made. Under sterile conditions mass is biopsied with a 14-gauge Achieve needle. Multiple core biopsi es are performed. Material placed in formalin and sent to pathology for review. No complications enco untered. Abnormal, asymmetric lymph nodes in the RIGHT breast towards the axillary tail is biopsied also. Lymp h node is at 11:00, 6 cm from the nipple towards the axilla. Biopsy is performed with a 20-gauge need le. Multiple biopsies are performed. Specimen placed in saline. Breast tissue marker, RIGHT breast at 10:00. (Bard ultrasound enhanced ribbon): Single. Breast tissue marker, RIGHT lymph node axillary tail, 11:00. (Cruise Compare ultrasound enhanced ribbon): Singl e. Patient left the radiology suite with no complications. Patient is instructed to return to [facility] or [facility] with any concerns. US/[place] [id number] IMPRESSION: 1. Uncomplicated core needle biopsy RIGHT breast mass at 10:00, 4 cm from the nipple. PATHOLOGY: Poorly differentiated invasive ductal carcinoma. Lympho- vascular in vasion identified. RECOMMENDATION: Surgical and oncologic follow-up. 2. Uncomplicated core needle biopsy RIGHT axillary lymph node narrowed 11:00, 6 cm from the nipple. PATHOLOGY: Positive for malignancy. Poorly differentiated invasive ductal carci noma. RECOMMENDATION: Surgical and oncologic follow-up.
[2022-04-11 12:12] LABS: Miscellaneous Test See Scanned Lab Rpt
== END 2022-04-08 07:28 | disposition home or self-care (01) ==
LOC: RAD 07:28
PROVIDERS: PCP Family Medicine; Visit Provider Family Medicine
DX: N63.0 Unspecified lump in unspecified breast (principal)
CPT/HCPCS: 19083; 38505; 76942; 88305; 88361; 88374

== ENCOUNTER → 2022-05-08 14:59 | Outpatient (BNVA) | payer BC, SELFPAY | PROVIDERS: PCP Family Medicine; Visit Provider Family Medicine | DX: C50.411 Malignant neoplasm of upper-outer quadrant of right female breast (principal); T45.1X5A Adverse effect of antineoplastic and immunosuppressive drugs, initial encounter; R51.9 Headache, unspecified; E78.1 Pure hyperglyceridemia | CPT/HCPCS: 80053; 80061 ==

== ENCOUNTER 2022-05-14 16:00 | Oncology outpatient (recurring) (ONCR) | payer BC, SELFPAY ==
[2022-04-30 10:13] LABS: Basophils # 0.1 10^3/uL (0.0-0.1); Basophils % 0.5 %; Eosinophils # 0.2 10^3/uL (0.0-0.8); Eosinophils % 2.5 %; Hematocrit 35.4 % (37.0-47.0); Hemoglobin 11.8 g/dL (11.5-15.3); Lymphocytes # 3.4 10^3/uL (0.8-4.8); Lymphocytes % 37.1 %; Mean Corpuscular HGB Conc 33.3 g/dL (30.0-36.0); Mean Corpuscular Hemoglobin 30.4 pg (28.0-34.0); Mean Corpuscular Volume 91.2 fl (81-99); Mean Platelet Volume 9.7 fL (7.4-10.4); Monocytes # 0.6 10^3/uL (0.2-0.9); Monocytes % 6.6 %; Neutrophils # 4.78 10^3/uL (1.8-7.7); Neutrophils % 52.6 %; Nucleated Red Blood Cells % 0 %; Platelet Count 406 10^3/cmm (130-400); Red Blood Count 3.88 10^6/uL (4.1-5.3); Red Cell Distribution Width 13.7 % (12.1-15.1); White Blood Count 9.1 10^3/uL (4.0-10.0)
[2022-04-30 10:28] LABS: Alanine Aminotransferase 11 U/L (0-33); Albumin Level 4.5 g/dL (3.5-5.2); Alkaline Phosphatase 66 IU/L (35-105); Anion Gap 15.1 (5-19); Aspartate Amino Transferase 19 U/L (0-32); Blood Urea Nitrogen 13 mg/dL (6-20); Calcium 9.2 mg/dL (8.5-10.5); Carbon Dioxide 26 mmol/L (22-29); Chloride 101 mmol/L (98-107); Globulin 3.3 g/dL (1.3-4.6); Glomerular Filtration Rate 87.5 mL/min (90-130); Glucose 89 mg/dL (65-115); Osmolality Calculated 286 mOsm/kg (285-295); Potassium 4.1 mmol/L (3.5-5.1); Sodium 138 mmol/L (136-145); Total Bilirubin 0.2 mg/dL (0.15-1.2); Total Protein 7.8 g/dL (6.6-8.7)
[2022-04-30 10:58] LABS: Follicle Stimulating Hormone 26.7 mIU/mL; Luteinizing Hormone 19.7 mIU/mL (0.5-41.7)
[2022-05-01 08:32] LABS: Add On to Lab Order(s) Added
[2022-05-01 09:06] LABS: Iron 74 ug/dL (37-145); Percent Saturation 19.3 % (20-50); Total Iron Binding Capacity 382 mcg/dl; Unsaturated Iron Binding 308 ug/dL (112-347)
[2022-05-01 09:23] LABS: Vitamin B12 476 pg/mL (232-1245)
--- NOTE | 2022-05-09 | USCV_ITS ---
Chrissy Schmid Age: 51 Gender: F : 1970 Exam Date: 05/09/2022 15:42 Ordering Phys: Gigi Schmidt MD Technologist: Erin Early [place] [facility] [place]ication: STARTING CHEMO TREATMENTS FOR BREAST CANER BP: 111 / 70 HR: 68 Rhythm: Sinus Technical Quality: Adequate MEASUREMENTS (Male / Female) Normal Values 2D ECHO LV Chamber Size 3.7 cm RV Chamber Size 2.5 cm LVOT Diameter 2.0 cm LV Ejection Fraction MOD 2C 58.7 % LV Ejection Fraction 2C AL 59.3 % LA Diameter 2.6 cm LA Width 2.9 cm LA Height 3.7 cm RA Width 4.2 cm RA Height 4.3 cm Aorta at Sinotubular Diameter 3.3 cm IVC Diameter 1.8 cm M-MODE Aortic Annulus Diameter 3.7 cm LA Ao Ratio MM 0.7 MV E Point Septal Separation 0.5 cm DOPPLER AV Peak Velocity 200.3 cm/s LVOT Peak Velocity 97.0 cm/s AV Area Cont Eq vti 1.5 cm squared AV Area Cont Eq pk 1.5 cm squared MV Area PHT 2.9 cm squared Mitral E to A Ratio 0.9 MV E' Velocity 87.0 cm/s Mitral E to LV E' Septal Ratio 7.9 TR Peak Velocity 208.1 cm/s TR Peak Gradient 17.3 mmHg TR Mean Velocity 146.2 cm/s TR Mean Gradient 9.4 mmHg TR Velocity Time Integral 47.5 cm TV Peak E Velocity 48.0 cm/s Right Atrial Pressure 3.0 mmHg Pulmonary Artery Systolic Pressu 20.3 mmHg PV Peak Velocity 76.7 cm/s RV Acceleration Time 0.1 s RV Ejection Time 0.3 s RV AcT/ET 0.4 FINDINGS Left Ventricle Normal left ventricular size. LV systolic function is normal with EF of 55-60%. No regional wall motion abnormalities. Diastolic function is normal. Right Ventricle The right ventricle is normal in size and function. Right Atrium The right atrium is normal in size. Left Atrium The left atrium is normal in size. Mitral Valve Structurally normal mitral valve without significant stenosis or prolapse. There is no mitral regurgitation. Aortic Valve Aortic valve is thickened. Mild aortic stenosis is seen with aortic valve area of 1.21 cm squared and mean gradient across aortic valve of 8.3mmHg. No significant aortic regurgitation. Tricuspid Valve Structurally normal tricuspid valve without significant stenosis. Mild tricuspid regurgitation. Pulmonary artery systolic pressure is normal. Pulmonic Valve Not well visualized Pericardium Normal pericardium without effusion. Aorta Normal ascending aorta dimension. IVC CONCLUSIONS LV systolic function is normal with EF of 55 to 60%. Diastolic function is normal. Mild aortic stenosis is seen with aortic valve area of 1.21 cm squared and mean gradient across valve aortic valve of 8.3 mmHg. Mild tricuspid regurgitation. No comparison studies are available. Jose Ugalde MD (Electronically Signed) Final Date: 09 May 2022 16:56 S
[2022-05-13 08:54] LABS: Basophils # 0.1 10^3/uL (0.0-0.1); Basophils % 0.6 %; Eosinophils # 0.3 10^3/uL (0.0-0.8); Eosinophils % 3.5 %; Lymphocytes # 3.3 10^3/uL (0.8-4.8); Lymphocytes % 37.1 %; Mean Corpuscular HGB Conc 33.3 g/dL (30.0-36.0); Mean Corpuscular Hemoglobin 30.8 pg (28.0-34.0); Mean Corpuscular Volume 92.4 fl (81-99); Mean Platelet Volume 9.8 fL (7.4-10.4); Monocytes # 0.7 10^3/uL (0.2-0.9); Monocytes % 7.9 %; Neutrophils # 4.38 10^3/uL (1.8-7.7); Nucleated Red Blood Cells % 0 %; Platelet Count 373 10^3/cmm (130-400); Red Blood Count 3.57 10^6/uL (4.1-5.3); Red Cell Distribution Width 13.5 % (12.1-15.1); White Blood Count 8.8 10^3/uL (4.0-10.0)
[2022-05-13 09:24] LABS: Alanine Aminotransferase 14 U/L (0-33); Albumin Level 4.1 g/dL (3.5-5.2); Alkaline Phosphatase 64 IU/L (35-105); Blood Urea Nitrogen 8 mg/dL (6-20); Carbon Dioxide 28 mmol/L (22-29); Chloride 104 mmol/L (98-107); Creatinine Clr Calc Pharmacy 147.0972; Globulin 2.8 g/dL (1.3-4.6); Glomerular Filtration Rate 129.1 mL/min (90-130); Glucose 105 mg/dL (65-115); Immunoglobulin IGG 979 mg/dL (700-1600); Osmolality Calculated 289 mOsm/kg (285-295); Sodium 140 mmol/L (136-145); Total Bilirubin 0.2 mg/dL (0.15-1.2); Total Protein 6.9 g/dL (6.6-8.7)
[2022-05-13 09:26] VITALS: BMI 41.8
[2022-05-13 09:44] LABS: Anion Gap 12.6 (5-19); Aspartate Amino Transferase 27 U/L (0-32); Potassium 4.6 mmol/L (3.5-5.1)
[2022-05-13] MEDS: OLANZapine 5 mg TABLET PO (09:44)
[2022-05-13] MEDS: sodium chloride 0.9% 250 ML 100 ML IV (09:45)
[2022-05-13] MEDS: famotidine 20 mg/2 mL INJ IVP (09:47)
[2022-05-13] MEDS: diphenhydrAMINE 50 mg/mL SDV 1mL 25 MG IVP (09:51)
[2022-05-13] MEDS: fosaprepitant 150 MG in sodium chloride 0.9% 150 ML 300 MG IV (10:05)
[2022-05-13] MEDS: DOXOrubicin 2 mg/ml MDV 120 MG IVP (11:10)
[2022-05-13] MEDS: cyclophosphamide 1,000 MG, cyclophosphamide 200 MG in sodium chloride 0.9% 500 ML 500 MG IV (11:20)
[2022-05-13] MEDS: pegfilgrastim 6 mg/0.6 mL Kit (onpro) SUBCUT (12:25)
[2022-05-13 13:21] VITALS: BP 123/80; PULSE 73; RESP 16; TEMP 36.2; O2SAT 96
[2022-05-14] MEDS: pegfilgrastim-bmez 6 mg/0.6 mL SYR SUBCUT (16:55)
[2022-05-14 16:56] VITALS: BP 103/57; PULSE 80; TEMP 37.1; O2SAT 97
== END 2022-05-19 23:59 | disposition home or self-care (01) ==
PROVIDERS: PCP Family Medicine; Visit Provider Internal Medicine Medical Oncology
DX: C50.411 Malignant neoplasm of upper-outer quadrant of right female breast (principal); Z17.0 Estrogen receptor positive status [ER+]; C77.3 Secondary and unspecified malignant neoplasm of axilla and upper limb lymph nodes; Z79.899 Other long term (current) drug therapy
CPT/HCPCS: 36415; 80053; 82607; 82670; 82784; 83001; 83002; 83540; 83550; 85025; 93306; 96367; 96372; 96375; 96377; 96411; 96413; J1100; J1200; J1453; J2506; J3490; J7040; J7050; J9000; J9070; Q5120

== ENCOUNTER 2022-05-21 09:05 | Emergency (ER) | payer BC, SELFPAY ==
[2022-05-21] VITALS (7 sets, daily range): BP systolic 117–153; BP diastolic 57–100; PULSE 71–88; RESP 14–16; TEMP 36.8; O2SAT 98–99; BMI 41.3
--- NOTE | 2022-05-21 09:21 | XRR_ITS ---
PROCEDURE INFORMATION: Exam: XR Chest Exam date and time: 05/21/2022 9:37 AM Age: 51 years old Clinical indication: Shortness of breath; Prior surgery; Surgery type: Port; Patient HX: HX of breast cancer; Additional info: Chest pain TECHNIQUE: Imaging protocol: Radiologic exam of the chest. Views: 1 view. COMPARISON: No relevant prior studies available. FINDINGS: Tubes, catheters and devices: A Port-A-Cath is present in the right chest extending into the SVC Lungs: Unremarkable. No consolidation. Pleural spaces: Unremarkable. No pleural effusion. No pneumothorax. Heart/Mediastinum: Unremarkable. No cardiomegaly. Bones/joints: Unremarkable. XR/XR chest 1V portable [id number] IMPRESSION: 1. No acute findings. 2. Port-A-Cath extending into the SVC
--- NOTE | 2022-05-21 10:07 | CT_ITS ---
WS: [id number] CT ABDOMEN PELVIS TECHNIQUE: Contrast-enhanced CT of the abdomen and pelvis with coronal and sagittal reformatted image s. CLINICAL INFORMATION: abd pain COMPARISON: None. DLP: 1018.[address] scans at [facility] use at least one of these dose optimization techniques: automated e xposure control; mA and/or kV adjustment per patient size (includes targeted exams where dose is matc hed to clinical indication); or iterative reconstruction. FINDINGS:Short segment thrombosis of the RIGHT ovarian vein in the lower abdomen extending to the upp er pelvis. Expansile dilatation of the RIGHT ovarian vein suggesting acute thrombus and thrombophlebi tis. Acute appearing thrombus extends approximately 2.3 cm craniocaudal. Calcifications along the dis herrera vein likely due to prior chronic thrombosis distally. Lung bases are well aerated. Mild diffuse fatty infiltration of the liver. Cholecystectomy clips. Nor mal spleen. Normal GE junction. Tiny esophageal hiatal hernia. Normal pancreatic parenchymal enhancem ent. Normal portal vein and splenic vein. Adrenal glands are normal. Normal renal parenchymal enhance ment. No hydronephrosis. No obstructing renal or ureteral calculi. Normal caliber abdominal aorta. Celiac and SMA are patent. No periaortic lymphadenopathy. Urine diste nded bladder Normal sigmoid colon. No evidence of high-grade small or large bowel obstruction. Lung bases are well aerated. CT/CT abdomen pelvis w con* [id number] IMPRESSION: 1. Short segment thrombosis of the RIGHT ovarian vein in the lower abdomen ext ending to the upper pelvis. Expansile dilatation of the RIGHT ovarian vein sugg esting acute thrombus and thrombophlebitis. 2. No obstructing renal or ureteral calculi. No hydronephrosis. 3. Cholecystectomy clips. 4. Urine distended bladder. 5. Small esophageal hiatal hernia. Notified Steve Pressley DO at 05/21/2022 11:17 AM.
[2022-05-21 10:25] LABS: Basophils # 0.1 10^3/uL (0.0-0.1); Basophils % 1.1 %; Eosinophils # 0.2 10^3/uL (0.0-0.8); Eosinophils % 2.9 %; Hematocrit 32.3 % (37.0-47.0); Hemoglobin 10.9 g/dL (11.5-15.3); Lymphocytes # 2.9 10^3/uL (0.8-4.8); Lymphocytes % 39.4 %; Mean Corpuscular HGB Conc 33.7 g/dL (30.0-36.0); Mean Corpuscular Hemoglobin 31.1 pg (28.0-34.0); Mean Corpuscular Volume 92.3 fl (81-99); Mean Platelet Volume 9.6 fL (7.4-10.4); Monocytes # 0.7 10^3/uL (0.2-0.9); Monocytes % 10.1 %; Neutrophils # 2.84 10^3/uL (1.8-7.7); Neutrophils % 38.8 %; Nucleated Red Blood Cells % 0 %; Platelet Count 349 10^3/cmm (130-400); Red Cell Distribution Width 13.4 % (12.1-15.1); White Blood Count 7.3 10^3/uL (4.0-10.0)
[2022-05-21] MEDS: iohexol 350 mg/mL 100 mL Btl IV (10:30)
[2022-05-21 10:45] LABS: Alanine Aminotransferase 12 U/L (0-33); Albumin Level 4.1 g/dL (3.5-5.2); Alkaline Phosphatase 87 IU/L (35-105); Anion Gap 16.2 (5-19); Aspartate Amino Transferase 16 U/L (0-32); Blood Urea Nitrogen 11 mg/dL (6-20); Calcium 9.6 mg/dL (8.5-10.5); Carbon Dioxide 28 mmol/L (22-29); Chloride 99 mmol/L (98-107); Globulin 2.7 g/dL (1.3-4.6); Glomerular Filtration Rate 104.6 mL/min (90-130); Glucose 101 mg/dL (65-115); Lipase 37 U/L (13-60); Osmolality Calculated 288 mOsm/kg (285-295); Potassium 4.2 mmol/L (3.5-5.1); Sodium 139 mmol/L (136-145); Total Bilirubin 0.2 mg/dL (0.15-1.2); Total Protein 6.8 g/dL (6.6-8.7)
[2022-05-21 10:46] LABS: Troponin(5th) Baseline 7 ng/L (0-10)
--- NOTE | 2022-05-21 10:59 | ED_ITS ---
HPI - Chest Pain General: Chief Complaint: Chest Pain Stated Complaint: Chest Pain Time Seen by Provider: 05/21/22 09:51 Source: patient Mode of arrival: ambulatory Limitations: no limitations History of Present Illness: 51-year-old female recently diagnosed with stage IIb breast cancer. She had her first dose of chemotherapy last week she had some abdominal pain this morning when she was attempting to defecate he said it radiated down into her legs and up into her chest is quite severe. She not had any vomiting. Last bowel movement was a few hours ago is described as quite painful. She not had any fever sweats or chills. Denies hematochezia melena hematemesis or coffee-ground emesis. She previously has had a hysterectomy appendectomy and cholecystectomy. MD complaint: chest pain Onset (ago): hour(s) (1) Timing of current episode: episodic Onset: during rest (With attempted defecation) Pain location: left chest Pain radiation: abdomen and other (Pelvis) Severity: moderate Quality: sharp Relieving factors: nothing Exacerbating factors: nothing Context: other (Recently initiated chemotherapy) Associated symptoms: Deny abdominal pain, dyspnea, fever(s), nausea or vomiting Review of Systems Const: Denies: fever(s), chills, body aches, change in appetite, fatigue or malaise ENMT: Denies: throat pain, ear or mastoid pain, nasal discharge or nasal congestion Card: Denies: chest pain, edema, dyspnea on exertion or orthopnea Resp: Denies: dyspnea, productive cough or non-productive cough GI: Denies: abdominal pain, nausea, vomiting, hematemesis, coffee ground emesis, diarrhea, constipation, bloating, hematochezia or melena : Denies: flank pain, difficulty voiding, dysuria, urinary frequency or urinary urgency Skin/Breast: Denies: rash or pruritus PFSH ED PFSH: Medical History (Updated 05/29/22 @ 00:01 by ) Acute adjustment disorder with anxiety Breast cancer Chronic insomnia Chronic migraine Depression Fibromyalgia Osteoarthritis PTSD (post-traumatic stress disorder) Vertigo Surgical History History of appendectomy History of hysterectomy for benign disease History of knee surgery Arthroscopic knee surgery x 2 History of laparoscopic cholecystectomy History of tonsillectomy Family History Father Diabetes CAD (coronary artery disease) Denies family history of Dementia Cancer Social History Smoking and tobacco status: never smoked Second hand smoke exposure: No Alcohol intake: former Lives independently: Yes Household members: spouse Marital status: Highest education level completed: Some College, No Degree Current occupational status: unemployed History of recent travel: No Current gender identity: Female Physical Exam Const: GENERAL APPEARANCE: cooperative and comfortable ORIENTATION/CONSCIOUSNESS: Yes awake, Yes oriented to person, Yes oriented to place and Yes oriented to time HENMT: COMMON NORMALS: normocephalic, atraumatic and hearing grossly normal bilaterally HEAD & SCALP: normocephalic and atraumatic Resp: COMMON NORMALS: normal respiratory effort, No retractions, No use of accessory muscles and clear to auscultation bilaterally AUSCULTATION: clear to auscultation bilaterally Cardio: COMMON NORMALS: regular rate, regular rhythm and No murmurs present (Cardio) RATE: regular rate RHYTHM: regular rhythm GI: COMMON NORMALS: Soft to palpation and No hepatosplenomegaly present AUSCULTATION: Yes normoactive bowel sounds PALPATION: Yes Soft to palpation, No Tenderness to palpation present (GI), No Guarding due to palpation present (GI) and Yes No hepatosplenomegaly present Extremity: COMMON NORMALS: normal to inspection, capillary refill normal, no clubbing, cyanosis or edema, no calf tenderness and no pedal edema Neuro: SENSORIUM/ORIENTATION: Yes oriented to person, Yes oriented to place and Yes oriented to time Skin: COMMON NORMALS: no rashes or lesions noted GENERAL SKIN EXAM: no rashes or lesions noted Course Vital Signs: Vital signs: Vital Signs Temperature 98.2 F 05/21/22 09:14 Pulse Rate 88 05/21/22 12:50 Respiratory Rate 14 05/21/22 12:50 Blood Pressure 142/72 05/21/22 12:50 Pulse Oximetry 99 05/21/22 12:50 Oxygen Delivery Me thod 05/21/22 09:14 MDM - Chest Pain Medical Decision Making Labs imaging and EKG reviewed as found in the chart no acute changes noted. Imaging shows thrombosis of the ovarian vein. I suspect her pain is related to swelling in the ovary related to the vein. Discussed with oncology. Will start on Eliquis discharge home pain is well controlled at time of discharge. Medical Records I reviewed the patient's medical records. Lab Data I reviewed the patient's lab results. : 05/21/22 10:18 05/21/22 10:18 Radiology Impressions Chest X-Ray 05/21/22 09:21 IMPRESSION: 1. No acute findings. 2. Port-A-Cath extending into the SVC Abdomen/Pelvis CT 05/21/22 10:07 IMPRESSION: 1. Short segment thrombosis of the RIGHT ovarian vein in the lower abdomen extending to the upper pelvis. Expansile dilatation of the RIGHT ovarian vein suggesting acute thrombus and thrombophlebitis. 2. No obstructing renal or ureteral calculi. No hydronephrosis. 3. Cholecystectomy clips. 4. Urine distended bladder. 5. Small esophageal hiatal hernia. Notified Steve Pressley DO at 05/21/2022 11:17 AM. Laboratory Results WBC 7.3 10^3/uL (4.0-10.0) 05/21/22 10:18 RBC 3.50 10^6/uL (4.1-5.3) L 05/21/22 10:18 Hgb 10.9 g/dL (11.5-15.3) L 05/21/22 10:18 Hct 32.3 % (37.0-47.0) L 05/21/22 10:18 MCV 92.3 fl (81-99) 05/21/22 10:18 MCH 31.1 pg (28.0-34.0) 05/21/22 10:18 MCHC 33.7 g/dL (30.0-36.0) 05/21/22 10:18 RDW 13.4 % (12.1-15.1) 05/21/22 10:18 Plt Count 349 10^3/cmm (130-400) 05/21/22 10:18 MPV 9.6 fL (7.4-10.4) 05/21/22 10:18 Neut % (Auto) 38.8 % 05/21/22 10:18 Lymph % (Auto) 39.4 % 05/21/22 10:18 Summers % (Auto) 10.1 % 05/21/22 10:18 Eos % (Auto) 2.9 % 05/21/22 10:18 Baso % (Auto) 1.1 % 05/21/22 10:18 Neut # (Auto) 2.84 10^3/uL (1.8-7.7) 05/21/22 10:18 Lymph # (Auto) 2.9 10^3/uL (0.8-4.8) 05/21/22 10:18 Summers # (Auto) 0.7 10^3/uL (0.2-0.9) 05/21/22 10:18 Eos # (Auto) 0.2 10^3/uL (0.0-0.8) 05/21/22 10:18 Baso # (Auto) 0.1 10^3/uL (0.0-0.1) 05/21/22 10:18 Nucleated RBC % (auto) 0 % 05/21/22 10:18 Nucleated RBCs # 0.0 /100WBC 05/21/22 10:18 Sodium 139 mmol/L (136-145) 05/21/22 10:18 Potassium 4.2 mmol/L (3.5-5.1) 05/21/22 10:18 Chloride 99 mmol/L (98-107) 05/21/22 10:18 Carbon Dioxide 28 mmol/L (22-29) 05/21/22 10:18 Anion Gap 16.2 (5-19) 05/21/22 10:18 BUN 11 mg/dL (6-20) 05/21/22 10:18 Creatinine 0.6 mg/dL (0.5-0.9) 05/21/22 10:18 GFR Calculation 104.6 mL/min (90-130) 05/21/22 10:18 Glucose 101 mg/dL (65-115) 05/21/22 10:18 Calculated Osmolality 288 mOsm/kg (285-295) 05/21/22 10:18 Calcium 9.6 mg/dL (8.5-10.5) 05/21/22 10:18 Total Bilirubin 0.2 mg/dL (0.15-1.2) 05/21/22 10:18 AST 16 U/L (0-32) 05/21/22 10:18 ALT 12 U/L (0-33) 05/21/22 10:18 Alkaline Phosphatase 87 IU/L (35-105) 05/21/22 10:18 Troponin T Baseline 7 ng/L (0-10) 05/21/22 10:18 Total Protein 6.8 g/dL (6.6-8.7) 05/21/22 10:18 Albumin 4.1 g/dL (3.5-5.2) 05/21/22 10:18 Globulin 2.7 g/dL (1.3-4.6) 05/21/22 10:18 Lipase 37 U/L (13-60) 05/21/22 10:18 Urine Color Yellow (Yellow) 05/21/22 10:53 Urine Appearance Clear (CLEAR) 05/21/22 10:53 Urine pH 8 (5-7) H 05/21/22 10:53 Ur Specific [place] 1.005 (1.005-1.030) 05/21/22 10:53 Urine Protein Neg (Negative) 05/21/22 10:53 Urine Glucose (UA) Norm (Normal) 05/21/22 10:53 Urine Ketones Negative (Negative) 05/21/22 10:53 Urine Blood Neg (Negative) 05/21/22 10:53 Urine Nitrate Negative (Negative) 05/21/22 10:53 Urine Bilirubin Neg (Negative) 05/21/22 10:53 Prot Sulfosalicylic Acd Negative (Negative) 05/21/22 10:53 Urine Urobilinogen Norm mg/dL (Negative) 05/21/22 10:53 Ur Leukocyte Esterase Negative (Negative) 05/21/22 10:53 Discharge Plan Discharge Patient Disposition: Home Clinical Impression: Thrombosis of ovarian vein, Infiltrating ductal carcinoma of upper-outer quadrant of right breast in female Condition: Stable Prescriptions: New Arlin DVT-PE Treat 30D Start 5 mg (74 tabs) tablets,dose pack See Rx Instructions .ROUTE .COMPLEX Qty: 74 0RF Rx Instructions: orally per package directions No Action sumatriptan succinate 100 mg tablet See Rx Instructions PO .COMPLEX Qty: 14 3RF Rx Instructions: take 1 tab at onset of headache; if no relief, may repeat 1 tab after at least 2 hrs as needed; max = 2 tabs/24 hrs PO Ventolin HFA 90 mcg/actuation HFA aerosol inhaler 2 puff INHALATION Q4H PRN (Reason: Shortness Of Breath) Qty: 8 2RF prochlorperazine maleate [Compazine] 10 mg tablet 10 mg PO Q6H PRN (Reason: nausea and vomiting) Qty: 30 0RF lorazepam [Ativan] 0.5 mg tablet 0.5 - 1 mg PO Q6H PRN (Reason: anxiety) Qty: 30 0RF (DME) hospital bed See Rx Instructions .Route .MEDSUPPLY Qty: 1 0RF Rx Instructions: As directed Collagen Hair Skin Nails 3 cap PO QAM multivitamin Tablet 1 tab PO QAM krill oil 500 mg capsule 1,000 mg PO QAM Miralax 17 gram Powder In Packet 17 g PO DAILY ondansetron HCl 8 mg tablet 8 mg PO Q8H PRN (Reason: Nausea And Vomiting) meclizine 25 mg tablet 25 mg PO BID PRN (Reason: Dizziness) promethazine 25 mg tablet 25 mg PO Q6H PRN (Reason: Nausea And Vomiting) fenofibrate 160 mg tablet 160 mg PO QAM Voltaren Arthritis Pain 1 % gel 4 g topical QID PRN (Reason: Pain) Rx Instructions: apply to single knee, ankle, foot; for foot includes sole/toes/top of foot dexamethasone 6 mg Tablet 12 mg PO .WITH CHEMO Zyprexa 5 mg Tablet 5 mg PO .WITH CHEMO Tylenol Ex Str Rapid Release 500 mg Tablet 500 mg PO .WITH CHEMO Pepcid 20 mg Tablet 20 mg PO .WITH CHEMO Benadryl 25 mg Capsule 25 mg PO .WITH CHEMO Emend (fosaprepitant) 150 mg Recon Soln See Rx Instructions .ROUTE .COMPLEX Rx Instructions: 150mg with chemo Neulasta Onpro 6 mg/0.6 mL Syringe, W/ Wearable Injector 6 mg SUBCUT .EVERY 14 DAYS Cytoxan See Rx Instructions .ROUTE .COMPLEX Rx Instructions: 1200mg every 14 days doxorubicin See Rx Instructions .ROUTE .COMPLEX Rx Instructions: 120mg every 14 days Discharge Orders: Discharge ED (Routine); Ordered 05/21/22 Ordered By: Steve Pressley Referrals: Dione Muller MD [Primary Care Provider] - Patient Instructions: Opioid Safety Activity Restrictions/Additional Instructions: You were seen today for a vein thrombosis in the right ovary. I discussed your case with your oncologist Dr. Schmidt we both agree that you should start on Eliquis. If you have significant shortness of breath return to the emergency room. Also recommend that you use hydrocodone for pain. You can offset side effects of hydrocodone by using either ondansetron or prochlorperazine or Benadryl. I would recommend that you stop the Metamucil and increase your MiraLAX. For immediate relief of constipation you can use magnesium citrate 150 mL every 8 hours until desired results achieved. Would also recommend that you follow-up with Dr. Schmidt within the next week. 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
[2022-05-21 11:05] LABS: Add Urine Microscopic? NO; Charge for UA Resulting for Rev
[2022-05-21 11:12] LABS: Bilirubin Urine Neg (Negative); Blood Urine Neg (Negative); Glucose Urine UA Norm (Normal); Ketones Urine Negative (Negative); Leukocyte Esterase Urine Negative (Negative); Nitrate Urine Negative (Negative); Protein Urine Neg (Negative); Specific Gravity, Urine 1.005 (1.005-1.030); Sulfosalicylic Acid Urine Negative (Negative); Urine Appearance Clear (CLEAR); Urine Color Yellow (Yellow); Urobilinogen Urine Norm (Negative); pH Urine 8 (5-7)
--- NOTE | 2022-05-21 11:13 | USCV_ITS ---
Chrissy Schmid Age: 51 Gender: F : 1970 Exam Date: 05/21/2022 11:46 Ordering Phys: Steve Pressley DO Technologist: [place] [facility] [place]ication: CANCER PT BILAT EDEMA PROCEDURES: The venous duplex Doppler examination of both lower extremities was performed in the standard fashion. The following venous structures were evaluated: common femoral vein, profunda vein, proximal portion of the greater saphenous vein, superficial femoral vein, and the popliteal vein. FINDINGS: Normal 2-D Doppler and augmentation and compressibility throughout the lower extremity venous structures. Additional imaging through the proximal calf veins also reveals no thrombus. Limited evaluation of the greater saphenous vein is patent with no thrombus.. CONCLUSIONS No evidence of right lower extremity DVT. No evidence of left lower extremity DVT. Oziel Quijano MD (Electronically Signed) Final Date: 22 May 2022 09:20 S
[2022-05-21 11:31] LABS: Slide Review Slide Review Perform
[2022-05-21] MEDS: morphine 4 mg/mL SDV 1 mL IVP ×2 (11:37→12:41)
[2022-05-21] MEDS: promethazine 25 mg/mL SDV 1 mL IM (11:37)
[2022-05-21] MEDS: enoxaparin 100 mg/mL Syringe SUBCUT (11:38)
--- NOTE | 2022-05-21 11:40 | ECG_ITS ---
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 Measurements Intervals [place] Rate: 75 P: 57 MS: 175 QRS: 37 QRSD: 105 T: 42 QT: 390 QTc: 438 Interpretive Statements SINUS RHYTHM Compared to ECG 05/21/2022 09:17:46 No significant changes Electronically Signed On 05-22-2022 6:44:23 CDT by Pedro Jones M.D. [email or web address]
--- NOTE | 2022-05-21 15:22 | ECG_ITS ---
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 Measurements Intervals [place] Rate: 69 P: 57 AK: 168 QRS: 41 QRSD: 97 T: 32 QT: 382 QTc: 410 Interpretive Statements SINUS RHYTHM LOW QRS VOLTAGE IN PRECORDIAL LEADS [QRS DEFLECTION < 1.0 mV IN CHEST LEADS] No previous ECG available for comparison Electronically Signed On 05-22-2022 6:43:45 CDT by Pedro Jones M.D. [id number]
== END 2022-05-21 12:51 | disposition home or self-care (01) ==
PROVIDERS: Physician Assistant; Emergency Provider Family Medicine; PCP Family Medicine
DX: I82.890 Acute embolism and thrombosis of other specified veins (principal); C50.411 Malignant neoplasm of upper-outer quadrant of right female breast; Z79.899 Other long term (current) drug therapy
CPT/HCPCS: 71045; 74177; 80053; 81003; 83690; 84484; 85025; 93005; 93970; 96372; 96374; 96376; 99285; J1650; J2270; J2550; Q9967

== ENCOUNTER 2022-06-10 09:00 | Oncology outpatient (recurring) (ONCR) | payer BC, SELFPAY ==
[2022-05-20 10:41] LABS: Hepatitis B Core AB, Total Non-Reactive (Nonreactive)
[2022-05-20 11:30] LABS: Basophils # 0.1 10^3/uL (0.0-0.1); Basophils % 1.6 %; Eosinophils # 0.4 10^3/uL (0.0-0.8); Eosinophils % 6.6 %; Hematocrit 32.9 % (37.0-47.0); Hemoglobin 10.8 g/dL (11.5-15.3); Lymphocytes # 2.4 10^3/uL (0.8-4.8); Lymphocytes % 41.9 %; Mean Corpuscular HGB Conc 32.8 g/dL (30.0-36.0); Mean Corpuscular Hemoglobin 30.9 pg (28.0-34.0); Mean Platelet Volume 9.9 fL (7.4-10.4); Monocytes # 0.3 10^3/uL (0.2-0.9); Monocytes % 5.3 %; Neutrophils # 2.38 10^3/uL (1.8-7.7); Neutrophils % 42.5 %; Nucleated Red Blood Cells % 0 %; Platelet Count 316 10^3/cmm (130-400); Red Cell Distribution Width 13.4 % (12.1-15.1); White Blood Count 5.6 10^3/uL (4.0-10.0)
[2022-05-20 11:51] LABS: Hepatitis A Antibody IgM Non-Reactive (Nonreactive); Hepatitis B Surface AB 3.5 (11.5-1000); Hepatitis B Surface Antigen Non-Reactive (Nonreactive); Hepatitis C Virus Antibody Non-Reactive (Nonreactive)
[2022-05-20 11:55] LABS: Slide Review Slide Review Perform
--- NOTE | 2022-05-20 13:23 | PC.NURSE ---
CBC and Hep panel results given to Dr. Schmidt/lc
[2022-05-27 08:41] VITALS: BMI 42.0
[2022-05-27 08:49] LABS: Basophils # 0.1 10^3/uL (0.0-0.1); Basophils % 0.9 %; Eosinophils # 0.1 10^3/uL (0.0-0.8); Hematocrit 32.4 % (37.0-47.0); Hemoglobin 10.8 g/dL (11.5-15.3); Lymphocytes # 3.5 10^3/uL (0.8-4.8); Lymphocytes % 26.9 %; Mean Corpuscular HGB Conc 33.3 g/dL (30.0-36.0); Mean Corpuscular Hemoglobin 31.2 pg (28.0-34.0); Mean Corpuscular Volume 93.6 fl (81-99); Mean Platelet Volume 9.4 fL (7.4-10.4); Monocytes # 0.8 10^3/uL (0.2-0.9); Monocytes % 6.3 %; Neutrophils # 6.42 10^3/uL (1.8-7.7); Nucleated Red Blood Cells % 0 %; Platelet Count 332 10^3/cmm (130-400); Red Blood Count 3.46 10^6/uL (4.1-5.3); Red Cell Distribution Width 14.3 % (12.1-15.1); White Blood Count 12.8 10^3/uL (4.0-10.0)
[2022-05-27 09:09] LABS: Neutrophils % 64.9 %
[2022-05-27 09:31] LABS: Alanine Aminotransferase 18 U/L (0-33); Albumin Level 4.2 g/dL (3.5-5.2); Alkaline Phosphatase 85 IU/L (35-105); Anion Gap 15.5 (5-19); Aspartate Amino Transferase 18 U/L (0-32); Blood Urea Nitrogen 11 mg/dL (6-20); Calcium 9.3 mg/dL (8.5-10.5); Carbon Dioxide 28 mmol/L (22-29); Chloride 104 mmol/L (98-107); Globulin 2.8 g/dL (1.3-4.6); Glomerular Filtration Rate 104.6 mL/min (90-130); Glucose 109 mg/dL (65-115); Osmolality Calculated 296 mOsm/kg (285-295); Potassium 4.5 mmol/L (3.5-5.1); Sodium 143 mmol/L (136-145); Total Bilirubin 0.2 mg/dL (0.15-1.2)
[2022-05-27] MEDS: sodium chloride 0.9% 250 ML 100 ML IV (10:33)
[2022-05-27] MEDS: OLANZapine 5 mg TABLET PO (10:33)
[2022-05-27] MEDS: palonosetron 0.25 mg/5 mL SDV IVP (10:34)
[2022-05-27] MEDS: famotidine 20 mg/2 mL INJ IVP (10:36)
[2022-05-27] MEDS: diphenhydrAMINE 50 mg/mL SDV 1mL 25 MG IVP (10:39)
[2022-05-27] MEDS: fosaprepitant 150 MG in sodium chloride 0.9% 150 ML 300 MG IV (10:49)
[2022-05-27 11:33] LABS: Iron 112 ug/dL (37-145); Percent Saturation 32.2 % (20-50); Total Iron Binding Capacity 347 mcg/dl; Unsaturated Iron Binding 235 ug/dL (112-347)
[2022-05-27] MEDS: DOXOrubicin 2 mg/ml MDV 120 MG IVP (11:51)
[2022-05-27] MEDS: cyclophosphamide 1,000 MG, cyclophosphamide 200 MG in sodium chloride 0.9% 500 ML 500 MG IV (12:04)
[2022-05-27 13:05] LABS: Vitamin B12 > 2000 pg/mL (232-1245)
[2022-05-28] MEDS: pegfilgrastim-bmez 6 mg/0.6 mL SYR SUBCUT (13:13)
[2022-05-28 13:18] VITALS: BP 123/78; PULSE 75; RESP 16; TEMP 36.2; O2SAT 98
[2022-06-10 09:15] VITALS: BMI 42.4
[2022-06-10 09:31] LABS: Hematocrit 29.9 % (37.0-47.0); Mean Corpuscular HGB Conc 33.4 g/dL (30.0-36.0); Mean Corpuscular Hemoglobin 30.9 pg (28.0-34.0); Mean Corpuscular Volume 92.3 fl (81-99); Mean Platelet Volume 9.1 fL (7.4-10.4); Platelet Count 410 10^3/cmm (130-400); Red Blood Count 3.24 10^6/uL (4.1-5.3); Red Cell Distribution Width 14.7 % (12.1-15.1)
[2022-06-10 09:44] LABS: Alanine Aminotransferase 12 U/L (0-33); Albumin Level 4.4 g/dL (3.5-5.2); Alkaline Phosphatase 99 U/L (35-105); Anion Gap 12.9 (5-19); Aspartate Amino Transferase 19 U/L (0-32); Blood Urea Nitrogen 9 mg/dL (6-20); Calcium 9.3 mg/dL (8.5-10.5); Carbon Dioxide 28 mmol/L (22-29); Chloride 101 mmol/L (98-107); Globulin 2.6 g/dL (1.3-4.6); Glomerular Filtration Rate 129.1 mL/min (90-130); Glucose 99 mg/dL (65-115); Osmolality Calculated 285 mOsm/kg (285-295); Potassium 3.9 mmol/L (3.5-5.1); Sodium 138 mmol/L (136-145); Total Bilirubin 0.2 mg/dL (0.15-1.2)
[2022-06-10 10:10] LABS: Slide Review Slide Review Perform
[2022-06-10 10:14] LABS: Absolute Eosinophils 0.1 10^3/cmm (0.0-0.7); Band Neutrophils Absolute 3.2 10^3/cmm (0.0-1.2); Eosinophils 1 %; Lymphocytes 19 %; Lymphocytes Absolute 3.4 10^3/cmm (1.2-3.4); Monocytes Absolute 0.7 10^3/cmm (0.1-0.6); Segmented Neutrophils 47 %; Total Cells Counted 100 (0-100)
[2022-06-10 10:15] LABS: Absolute Neutrophil 11.2 10^3/cmm (1.4-6.5); Anisocytosis 1+; Platelet Estimate Increased (Normal); Smudge Cells 1+
[2022-06-10] MEDS: OLANZapine 5 mg TABLET PO (11:07)
[2022-06-10] MEDS: famotidine 20 mg/2 mL INJ IVP (11:07)
[2022-06-10] MEDS: diphenhydrAMINE 50 mg/mL SDV 1mL 25 MG IVP (11:09)
[2022-06-10] MEDS: sodium chloride 0.9% 250 ML 75 ML IV (11:10)
[2022-06-10] MEDS: palonosetron 0.25 mg/5 mL SDV IVP (11:16)
[2022-06-10] MEDS: fosaprepitant 150 MG in sodium chloride 0.9% 150 ML 300 MG IV (11:36)
[2022-06-10] MEDS: DOXOrubicin 2 mg/ml MDV 120 MG IVP (12:38)
[2022-06-10] MEDS: cyclophosphamide 1,000 MG, cyclophosphamide 200 MG in sodium chloride 0.9% 500 ML 500 MG IV (12:38)
[2022-06-10] MEDS: pegfilgrastim 6 mg/0.6 mL Kit (onpro) SUBCUT (14:10)
[2022-06-10 14:14] VITALS: BP 120/76; PULSE 79; RESP 16; TEMP 36.2; O2SAT 96
== END 2022-06-19 23:59 | disposition home or self-care (01) ==
PROVIDERS: PCP Family Medicine; Visit Provider Internal Medicine Medical Oncology
DX: Z51.11 Encounter for antineoplastic chemotherapy (principal); C50.411 Malignant neoplasm of upper-outer quadrant of right female breast; Z79.899 Other long term (current) drug therapy; Z79.52 Long term (current) use of systemic steroids; Z17.0 Estrogen receptor positive status [ER+]
CPT/HCPCS: 36591; 80053; 82607; 83540; 83550; 85007; 85025; 86705; 86706; 86709; 86803; 87340; 96367; 96372; 96375; 96377; 96409; 96413; J1100; J1200; J1453; J2469; J2506; J3490; J7040; J7050; J9000; J9070; Q5120

== ENCOUNTER 2022-06-17 07:50 | Emergency (ER) | payer BC, SELFPAY ==
--- NOTE | 2022-06-17 07:55 | XR_ITS ---
WS: [id number] Exam: XR chest 1V portable [id number] Date/Time of Exam: 06/17/2022 8:03 AM Reason For Exam: chest pain Comparison 05/21/2022. The lungs are clear and fully inflated. Normal cardiomediastinal silhouette. A right subclavian port ends in the lower one third of the SVC in good position. Bony structures are intact. XR/XR chest 1V portable [id number] IMPRESSION: 1. No acute cardiopulmonary finding. 2. Right-sided port appearing to be in satisfactory position.
--- NOTE | 2022-06-17 08:00 | ECG_ITS ---
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 Measurements Intervals [place] Rate: 92 P: 31 ID: 162 QRS: 42 QRSD: 96 T: 37 QT: 366 QTc: 453 Interpretive Statements SINUS RHYTHM MINIMAL ST DEPRESSION [0.025+ mV ST DEPRESSION] Compared to ECG 05/21/2022 11:40:59 ST (T wave) deviation now present Electronically Signed On 06-17-2022 13:58:45 CDT by Payam Flores M.D. [id number] f
--- NOTE | 2022-06-17 08:11 | W.ED.CHESTPA ---
HPI - Chest Pain General: Chief Complaint: Chest Pain Stated Complaint: Chest, neck and arm pain Time Seen by Provider: 06/17/22 07:55 Source: patient Mode of arrival: ambulatory History of Present Illness: 51-year-old female presents emergency room with complaint of chest neck and arm pain that began suddenly this morning after she had a coughing fit. Her cough is been nonproductive. She states she felt a popping sensation in her chest in the area of her port during a coughing fit. Is also on the left side worse with inspiration. Initially was on the right side around the area of her port. 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 She has no history of coronary artery disease. She denies any recent fever sweats or chills or productive cough. She is currently getting chemotherapy. MD complaint: chest pain Onset (ago): hour(s) Timing of current episode: episodic Onset: during rest (After coughing fit.) Pain location: substernal and left chest Pain radiation: left arm and neck Severity: mild Quality: sharp Relieving factors: nothing Exacerbating factors: inspiration Associated symptoms: Deny abdominal pain, dyspnea, fever(s), nausea or vomiting Review of Systems Const: Denies: fever(s), chills, body aches, change in appetite, fatigue or malaise ENMT: Denies: throat pain, ear or mastoid pain, nasal discharge or nasal congestion Card: Denies: chest pain, edema, dyspnea on exertion or orthopnea Resp: Denies: dyspnea, productive cough or non-productive cough GI: Denies: abdominal pain, nausea, vomiting, hematemesis, coffee ground emesis, diarrhea, constipation, bloating, hematochezia or melena : Denies: flank pain, difficulty voiding, dysuria, urinary frequency or urinary urgency Skin/Breast: Denies: rash or pruritus PFSH ED PFSH: Medical History Acute adjustment disorder with anxiety Breast cancer Chronic insomnia Chronic migraine Depression Fibromyalgia Osteoarthritis PTSD (post-traumatic stress disorder) Thrombosis of ovarian vein Vertigo Surgical History History of appendectomy History of hysterectomy for benign disease History of knee surgery Arthroscopic knee surgery x 2 History of laparoscopic cholecystectomy History of tonsillectomy Family History Father Diabetes CAD (coronary artery disease) Denies family history of Dementia Cancer Social History Smoking and tobacco status: never smoked Second hand smoke exposure: No Alcohol intake: former Lives independently: Yes Household members: spouse Marital status: Highest education level completed: Some College, No Degree Current occupational status: unemployed History of recent travel: No Current gender identity: Female Physical Exam Const: COMMON NORMALS: no acute distress GENERAL APPEARANCE: cooperative and comfortable ORIENTATION/CONSCIOUSNESS: Yes awake, Yes oriented to person, Yes oriented to place and Yes oriented to time HENMT: COMMON NORMALS: normocephalic, atraumatic and hearing grossly normal bilaterally HEAD & SCALP: normocephalic and atraumatic Chest: CHEST: Yes localized rib tenderness with anteroposterior compression Resp: COMMON NORMALS: normal respiratory effort, No retractions, No use of accessory muscles and clear to auscultation bilaterally AUSCULTATION: clear to auscultation bilaterally Cardio: COMMON NORMALS: regular rate, regular rhythm and No murmurs present (Cardio) RATE: regular rate RHYTHM: regular rhythm GI: COMMON NORMALS: Soft to palpation and No hepatosplenomegaly present AUSCULTATION: Yes normoactive bowel sounds PALPATION: Yes Soft to palpation, No Tenderness to palpation present (GI), No Guarding due to palpation present (GI) and Yes No hepatosplenomegaly present Extremity: COMMON NORMALS: normal to inspection, capillary refill normal, no clubbing, cyanosis or edema, no calf tenderness and no pedal edema Neuro: SENSORIUM/ORIENTATION: Yes oriented to person, Yes oriented to place and Yes oriented to time Skin: COMMON NORMALS: no rashes or lesions noted GENERAL SKIN EXAM: no rashes or lesions noted Course Vital Signs: Vital signs: Vital Signs Temperature 98.2 F 06/17/22 08:12 Pulse Rate 76 06/17/22 10:12 Respiratory Rate 16 06/17/22 10:12 Blood Pressure 106/70 06/17/22 10:12 Pulse Oximetry 99 06/17/22 10:12 Oxygen Delivery Me thod 06/17/22 09:52 MDM - Chest Pain Medical Decision Making Labs imaging and EKG reviewed no acute findings. Pain reproducible panic palpation across the chest. Discharge home follow-up as needed Medical Records I reviewed the patient's medical records. Lab Data I reviewed the patient's lab results. : 06/17/22 07:58 06/17/22 07:58 Radiology Impressions Chest X-Ray 06/17/22 07:55 IMPRESSION: 1. No acute cardiopulmonary finding. 2. Right-sided port appearing to be in satisfactory position. Laboratory Results WBC 8.6 10^3/uL (4.0-10.0) 06/17/22 07:58 RBC 3.28 10^6/uL (4.1-5.3) L 06/17/22 07:58 Hgb 10.3 g/dL (11.5-15.3) L 06/17/22 07:58 Hct 30.6 % (37.0-47.0) L 06/17/22 07:58 MCV 93.3 fl (81-99) 06/17/22 07:58 MCH 31.4 pg (28.0-34.0) 06/17/22 07:58 MCHC 33.7 g/dL (30.0-36.0) 06/17/22 07:58 RDW 14.7 % (12.1-15.1) 06/17/22 07:58 Plt Count 300 10^3/cmm (130-400) 06/17/22 07:58 MPV 9.2 fL (7.4-10.4) 06/17/22 07:58 Neut % (Auto) 67.4 % 06/17/22 07:58 Lymph % (Auto) 21.3 % 06/17/22 07:58 [place] % (Auto) 5.5 % 06/17/22 07:58 Eos % (Auto) 1.8 % 06/17/22 07:58 Baso % (Auto) 1.5 % 06/17/22 07:58 Neut # (Auto) 5.78 10^3/uL (1.8-7.7) 06/17/22 07:58 Lymph # (Auto) 1.8 10^3/uL (0.8-4.8) 06/17/22 07:58 [place] # (Auto) 0.5 10^3/uL (0.2-0.9) 06/17/22 07:58 Eos # (Auto) 0.2 10^3/uL (0.0-0.8) 06/17/22 07:58 Baso # (Auto) 0.1 10^3/uL (0.0-0.1) 06/17/22 07:58 Nucleated RBC % (auto) 0 % 06/17/22 07:58 Nucleated RBCs # 0.0 /100WBC 06/17/22 07:58 Sodium 139 mmol/L (136-145) 06/17/22 07:58 Potassium 4.3 mmol/L (3.5-5.1) 06/17/22 07:58 Chloride 101 mmol/L (98-107) 06/17/22 07:58 Carbon Dioxide 25 mmol/L (-29) 06/17/22 07:58 Anion Gap 17.3 (5-19) 06/17/22 07:58 BUN 9 mg/dL (6-20) 06/17/22 07:58 Creatinine 0.5 mg/dL (0.5-0.9) 06/17/22 07:58 GFR Calculation 129.1 mL/min (90-130) 06/17/22 07:58 Glucose 133 mg/dL (65-115) H 06/17/22 07:58 Calculated Osmolality 289 mOsm/kg (285-295) 06/17/22 07:58 Calcium 9.3 mg/dL (8.5-10.5) 06/17/22 07:58 Total Bilirubin 0.2 mg/dL (0.15-1.2) 06/17/22 07:58 AST 14 U/L (0-32) 06/17/22 07:58 ALT 11 U/L (0-33) 06/17/22 07:58 Alkaline Phosphatase 156 U/L (35-105) H 06/17/22 07:58 Troponin T Baseline 9 ng/L (0-10) 06/17/22 07:58 Troponin T 120 Minute 9.33 ng/L (0-10) 06/17/22 09:34 Delta Troponin T 0.33 ABS# (0-10) 06/17/22 09:34 Total Protein 6.8 g/dL (6.6-8.7) 06/17/22 07:58 Albumin 4.6 g/dL (3.5-5.2) 06/17/22 07:58 Globulin 2.2 g/dL (1.3-4.6) 06/17/22 07:58 Discharge Plan Discharge Patient Disposition: Home Clinical Impression: Chest pain, pleuritic Condition: Stable Prescriptions: No Action sumatriptan succinate 100 mg tablet See Rx Instructions PO .COMPLEX Qty: 14 3RF Rx Instructions: take 1 tab at onset of headache; if no relief, may repeat 1 tab after at least 2 hrs as needed; max = 2 tabs/24 hrs PO Ventolin HFA 90 mcg/actuation HFA aerosol inhaler 2 puff INHALATION Q4H PRN (Reason: Shortness Of Breath) Qty: 8 2RF lorazepam [Ativan] 0.5 mg tablet 0.5 - 1 mg PO Q6H PRN (Reason: anxiety) Qty: 30 0RF (DME) hospital bed See Rx Instructions .Route .MEDSUPPLY Qty: 1 0RF Rx Instructions: Use as directed apixaban 5 mg tablet 5 mg PO BID Qty: 60 6RF multivitamin Tablet 1 tab PO QAM krill oil 500 mg capsule 1,000 mg PO QAM polyethylene glycol 3350 [Miralax] 17 gram Powder In Packet 17 g PO DAILY@12 ondansetron HCl 8 mg tablet 8 mg PO Q8H PRN (Reason: Nausea And Vomiting) meclizine 25 mg tablet 25 mg PO BID PRN (Reason: Dizziness) promethazine 25 mg tablet 25 mg PO BEDTIME diclofenac sodium [Voltaren Arthritis Pain] 1 % gel 4 g topical QID PRN (Reason: Pain) Rx Instructions: apply to single knee, ankle, foot; for foot includes sole/toes/top of foot dexamethasone 6 mg Tablet 12 mg PO .WITH CHEMO olanzapine [Zyprexa] 5 mg Tablet 5 mg PO .WITH CHEMO acetaminophen [Tylenol Ex Str Rapid Release] 500 mg Tablet 500 mg PO .WITH CHEMO famotidine [Pepcid] 20 mg Tablet 20 mg PO .WITH CHEMO diphenhydramine HCl [Benadryl] 25 mg Capsule 25 mg PO .WITH CHEMO fosaprepitant [Emend (fosaprepitant)] 150 mg Recon Soln See Rx Instructions .ROUTE .COMPLEX Rx Instructions: 150mg with chemo Neulasta Onpro 6 mg/0.6 mL Syringe, W/ Wearable Injector 6 mg SUBCUT .EVERY 14 DAYS Cytoxan See Rx Instructions .ROUTE .COMPLEX Rx Instructions: 1200mg every 14 days doxorubicin See Rx Instructions .ROUTE .COMPLEX Rx Instructions: 120mg every 14 days Pepcid 20 mg Tablet 20 mg PO TID Collagen Plus Vitamin C 125-740 mg Capsule 1 cap PO QAM Airborne Gummy 250-11.66 mg Tablet,Chewable 3 tab PO BID Compazine 10 mg tablet 10 mg PO QAM Discharge Orders: Discharge ED (Routine); Ordered 06/17/22 Ordered By: Steve Pressley Referrals: Dione Muller MD [Primary Care Provider] - Discharge Diet: Usual diet Discharge Activity: Increase activity as tolerated Patient Instructions: Opioid Safety Activity Restrictions/Additional Instructions: Continue your Eliquis. No change in any other medications. Follow-up with your oncology team later this week. Coding Level of Care Code ED Color Sprayer for Reece Barnes
[2022-06-17 08:12] VITALS: PULSE 80; RESP 18; TEMP 36.8; O2SAT 98; BMI 40.7
[2022-06-17 08:13] LABS: Basophils # 0.1 10^3/uL (0.0-0.1); Basophils % 1.5 %; Eosinophils # 0.2 10^3/uL (0.0-0.8); Eosinophils % 1.8 %; Hematocrit 30.6 % (37.0-47.0); Hemoglobin 10.3 g/dL (11.5-15.3); Lymphocytes # 1.8 10^3/uL (0.8-4.8); Lymphocytes % 21.3 %; Mean Corpuscular HGB Conc 33.7 g/dL (30.0-36.0); Mean Corpuscular Hemoglobin 31.4 pg (28.0-34.0); Mean Corpuscular Volume 93.3 fl (81-99); Mean Platelet Volume 9.2 fL (7.4-10.4); Monocytes # 0.5 10^3/uL (0.2-0.9); Monocytes % 5.5 %; Neutrophils # 5.78 10^3/uL (1.8-7.7); Neutrophils % 67.4 %; Nucleated Red Blood Cells % 0 %; Platelet Count 300 10^3/cmm (130-400); Red Blood Count 3.28 10^6/uL (4.1-5.3); Red Cell Distribution Width 14.7 % (12.1-15.1); White Blood Count 8.6 10^3/uL (4.0-10.0)
[2022-06-17] MEDS: aspirin 81 mg Chew Tablet 324 MG PO (08:15)
[2022-06-17 08:20] VITALS: BP 108/79; PULSE 87; RESP 14; O2SAT 98
--- NOTE | 2022-06-17 08:24 | PC.NURSE ---
PT PLACED ON CONTINUOUS NIBP, SPO2, AND CM
[2022-06-17 08:34] LABS: Troponin(5th) Baseline 9 ng/L (0-10)
[2022-06-17 08:37] LABS: Alanine Aminotransferase 11 U/L (0-33); Albumin Level 4.6 g/dL (3.5-5.2); Alkaline Phosphatase 156 U/L (35-105); Anion Gap 17.3 (5-19); Aspartate Amino Transferase 14 U/L (0-32); Blood Urea Nitrogen 9 mg/dL (6-20); Calcium 9.3 mg/dL (8.5-10.5); Carbon Dioxide 25 mmol/L (22-29); Chloride 101 mmol/L (98-107); Creatinine Clr Calc Pharmacy 150.3042; Globulin 2.2 g/dL (1.3-4.6); Glomerular Filtration Rate 129.1 mL/min (90-130); Glucose 133 mg/dL (65-115); Osmolality Calculated 289 mOsm/kg (285-295); Potassium 4.3 mmol/L (3.5-5.1); Sodium 139 mmol/L (136-145); Total Bilirubin 0.2 mg/dL (0.15-1.2); Total Protein 6.8 g/dL (6.6-8.7)
[2022-06-17 09:52] VITALS: BP 103/77; PULSE 79; RESP 17; O2SAT 98
[2022-06-17 10:01] LABS: Troponin 5 2HR 9.33 ng/L (0-10)
[2022-06-17 10:12] VITALS: BP 106/70; PULSE 76; RESP 16; O2SAT 99
[2022-06-17 10:34] LABS: Troponin 5 2HR Delta 0.33 ABS# (0-10)
== END 2022-06-17 10:16 | disposition home or self-care (01) ==
PROVIDERS: Emergency Provider Family Medicine; PCP Family Medicine
DX: R07.81 Pleurodynia (principal); Z85.3 Personal history of malignant neoplasm of breast
CPT/HCPCS: 36415; 71045; 80053; 84484; 85025; 93005; 99285

== ENCOUNTER 2022-07-16 10:00 | Oncology outpatient (recurring) (ONCR) | payer BC, SELFPAY ==
[2022-06-25 09:19] LABS: Basophils # 0.2 10^3/uL (0.0-0.1); Basophils % 1.3 %; Eosinophils # 0.2 10^3/uL (0.0-0.8); Eosinophils % 1.6 %; Hematocrit 30.5 % (37.0-47.0); Hemoglobin 10.1 g/dL (11.5-15.3); Lymphocytes # 2.5 10^3/uL (0.8-4.8); Lymphocytes % 18.3 %; Mean Corpuscular HGB Conc 33.1 g/dL (30.0-36.0); Mean Corpuscular Hemoglobin 31.8 pg (28.0-34.0); Mean Corpuscular Volume 95.9 fl (81-99); Monocytes # 0.7 10^3/uL (0.2-0.9); Monocytes % 4.7 %; Neutrophils # 8.34 10^3/uL (1.8-7.7); Neutrophils % 60.5 %; Nucleated Red Blood Cells % 0.1 %; Platelet Count 311 10^3/cmm (130-400); Red Blood Count 3.18 10^6/uL (4.1-5.3); White Blood Count 13.8 10^3/uL (4.0-10.0)
[2022-06-25 09:38] LABS: Slide Review Slide Review Perform
[2022-06-25 09:39] LABS: Alanine Aminotransferase 11 U/L (0-33); Albumin Level 4.2 g/dL (3.5-5.2); Alkaline Phosphatase 96 U/L (35-105); Aspartate Amino Transferase 15 U/L (0-32); Blood Urea Nitrogen 7 mg/dL (6-20); Calcium 9.1 mg/dL (8.5-10.5); Carbon Dioxide 28 mmol/L (22-29); Chloride 102 mmol/L (98-107); Globulin 2.6 g/dL (1.3-4.6); Glucose 139 mg/dL (65-115); Osmolality Calculated 294 mOsm/kg (285-295); Sodium 142 mmol/L (136-145); Total Bilirubin 0.2 mg/dL (0.15-1.2); Total Protein 6.8 g/dL (6.6-8.7)
[2022-06-25] MEDS: sodium chloride 0.9% 250 ML 100 ML IV (10:35)
[2022-06-25] MEDS: OLANZapine 5 mg TABLET PO (10:35)
[2022-06-25] MEDS: palonosetron 0.25 mg/5 mL SDV IVP (10:37)
[2022-06-25] MEDS: famotidine 20 mg/2 mL INJ IVP (10:39)
[2022-06-25] MEDS: diphenhydrAMINE 50 mg/mL SDV 1mL 25 MG IVP (10:41)
[2022-06-25] MEDS: fosaprepitant 150 MG in sodium chloride 0.9% 150 ML 300 MG IV (11:32)
[2022-06-25] MEDS: DOXOrubicin 2 mg/ml MDV 120 MG IVP (12:08)
[2022-06-25] MEDS: cyclophosphamide 1,000 MG, cyclophosphamide 200 MG in sodium chloride 0.9% 500 ML 500 MG IV (12:08)
[2022-06-25] MEDS: pegfilgrastim 6 mg/0.6 mL Kit (onpro) SUBCUT (14:32)
[2022-06-25 14:35] VITALS: BP 157/80; PULSE 74; RESP 16; TEMP 36.5; O2SAT 96
[2022-07-09 08:20] LABS: Hematocrit 30.1 % (37.0-47.0); Hemoglobin 9.8 g/dL (11.5-15.3); Mean Corpuscular HGB Conc 32.6 g/dL (30.0-36.0); Mean Corpuscular Hemoglobin 31.9 pg (28.0-34.0); Platelet Count 292 10^3/cmm (130-400); Red Blood Count 3.07 10^6/uL (4.1-5.3); Red Cell Distribution Width 17.1 % (12.1-15.1); White Blood Count 16.9 10^3/uL (4.0-10.0)
[2022-07-09 08:44] LABS: Alanine Aminotransferase 12 U/L (0-33); Albumin Level 4.2 g/dL (3.5-5.2); Alkaline Phosphatase 103 U/L (35-105); Aspartate Amino Transferase 20 U/L (0-32); Blood Urea Nitrogen 7 mg/dL (6-20); Calcium 9.1 mg/dL (8.5-10.5); Carbon Dioxide 28 mmol/L (22-29); Chloride 99 mmol/L (98-107); Globulin 2.8 g/dL (1.3-4.6); Glomerular Filtration Rate 104.6 mL/min (90-130); Glucose 146 mg/dL (65-115); Osmolality Calculated 287 mOsm/kg (285-295); Sodium 138 mmol/L (136-145); Total Bilirubin 0.3 mg/dL (0.15-1.2)
[2022-07-09 09:18] LABS: Slide Review Slide Review Perform
[2022-07-09 09:20] LABS: Absolute Eosinophils 0.1 10^3/cmm (0.0-0.7); Absolute Neutrophil 11.2 10^3/cmm (1.4-6.5); Absolute Segmented Neutrophil 8.1 10/cmm (1.6-7.1); Eosinophils 1 %; Lymphocytes 19 %; Lymphocytes Absolute 3.5 10^3/cmm (1.2-3.4); Monocytes Absolute 0.5 10^3/cmm (0.1-0.6); Platelet Estimate Normal (Normal); Segmented Neutrophils 48 %; Total Cells Counted 100 (0-100)
[2022-07-09 09:21] LABS: Anisocytosis 2+
[2022-07-09] MEDS: sodium chloride 0.9% 250 ML 100 ML IV (10:33)
[2022-07-09] MEDS: ondansetron 2 mg/ML SDV 2 mL 8 MG IVP (10:36)
[2022-07-09] MEDS: famotidine 20 mg/2 mL INJ IVP (10:38)
[2022-07-09] MEDS: diphenhydrAMINE 50 mg/mL SDV 1mL 25 MG IVP (10:38)
[2022-07-09] MEDS: dexamethasone 20 MG in sodium chloride 0.9% 50 ML 188 MG IV (10:55)
[2022-07-09 13:47] VITALS: BP 136/88; PULSE 76; RESP 16; TEMP 36.1; O2SAT 94
[2022-07-16 10:11] LABS: Basophils # 0.1 10^3/uL (0.0-0.1); Eosinophils # 0.1 10^3/uL (0.0-0.8); Eosinophils % 1.3 %; Hematocrit 29.3 % (37.0-47.0); Hemoglobin 9.5 g/dL (11.5-15.3); Lymphocytes # 2.2 10^3/uL (0.8-4.8); Lymphocytes % 21.7 %; Mean Corpuscular HGB Conc 32.4 g/dL (30.0-36.0); Mean Corpuscular Hemoglobin 31.5 pg (28.0-34.0); Monocytes # 0.9 10^3/uL (0.2-0.9); Monocytes % 9.3 %; Neutrophils # 6.33 10^3/uL (1.8-7.7); Neutrophils % 62.5 %; Nucleated Red Blood Cells % 0 %; Platelet Count 415 10^3/cmm (130-400); Red Blood Count 3.02 10^6/uL (4.1-5.3); Red Cell Distribution Width 16.6 % (12.1-15.1); White Blood Count 10.1 10^3/uL (4.0-10.0)
[2022-07-16 10:31] LABS: Alanine Aminotransferase 14 U/L (0-33); Alkaline Phosphatase 80 U/L (35-105); Anion Gap 14.4 (5-19); Aspartate Amino Transferase 20 U/L (0-32); Blood Urea Nitrogen 9 mg/dL (6-20); Carbon Dioxide 28 mmol/L (22-29); Chloride 102 mmol/L (98-107); Creatinine Clr Calc Pharmacy 152.1677; Glomerular Filtration Rate 129.1 mL/min (90-130); Glucose 126 mg/dL (65-115); Osmolality Calculated 290 mOsm/kg (285-295); Potassium 4.4 mmol/L (3.5-5.1); Sodium 140 mmol/L (136-145); Total Bilirubin 0.2 mg/dL (0.15-1.2)
[2022-07-16] MEDS: sodium chloride 0.9% 250 ML 100 ML IV (11:21)
[2022-07-16] MEDS: ondansetron 2 mg/ML SDV 2 mL 8 MG IVP (11:22)
[2022-07-16] MEDS: famotidine 20 mg/2 mL INJ IVP (11:23)
[2022-07-16] MEDS: diphenhydrAMINE 50 mg/mL SDV 1mL 25 MG IVP (11:23)
[2022-07-16 13:18] VITALS: BP 131/80; PULSE 84; RESP 16; TEMP 37.3; O2SAT 96
== END 2022-07-19 23:59 | disposition home or self-care (01) ==
PROVIDERS: Nurse Practitioner; PCP Family Medicine; Visit Provider Internal Medicine Medical Oncology
DX: Z51.11 Encounter for antineoplastic chemotherapy (principal); C50.411 Malignant neoplasm of upper-outer quadrant of right female breast; Z79.899 Other long term (current) drug therapy; Z79.52 Long term (current) use of systemic steroids; Z17.0 Estrogen receptor positive status [ER+]
CPT/HCPCS: 80053; 85007; 85025; 96367; 96375; 96377; 96409; 96413; J1100; J1200; J1453; J2405; J2469; J2506; J3490; J7040; J7050; J9000; J9070; J9267

== ENCOUNTER 2022-08-13 08:00 | Oncology outpatient (recurring) (ONCR) | payer BC, SELFPAY ==
[2022-07-23 08:53] LABS: Basophils # 0.1 10^3/uL (0.0-0.1); Basophils % 1.3 %; Eosinophils # 0.1 10^3/uL (0.0-0.8); Eosinophils % 1.8 %; Hematocrit 28.4 % (37.0-47.0); Hemoglobin 9.4 g/dL (11.5-15.3); Lymphocytes # 1.9 10^3/uL (0.8-4.8); Lymphocytes % 26.7 %; Mean Corpuscular HGB Conc 33.1 g/dL (30.0-36.0); Mean Corpuscular Hemoglobin 32.2 pg (28.0-34.0); Mean Corpuscular Volume 97.3 fl (81-99); Mean Platelet Volume 9.2 fL (7.4-10.4); Monocytes # 0.5 10^3/uL (0.2-0.9); Monocytes % 7.2 %; Neutrophils # 4.24 10^3/uL (1.8-7.7); Neutrophils % 60.3 %; Nucleated Red Blood Cells % 0 %; Platelet Count 445 10^3/cmm (130-400); Red Blood Count 2.92 10^6/uL (4.1-5.3); Red Cell Distribution Width 16.5 % (12.1-15.1)
[2022-07-23 09:15] LABS: Alanine Aminotransferase 15 U/L (0-33); Albumin Level 4.2 g/dL (3.5-5.2); Alkaline Phosphatase 65 U/L (35-105); Aspartate Amino Transferase 18 U/L (0-32); Blood Urea Nitrogen 9 mg/dL (6-20); Calcium 8.9 mg/dL (8.5-10.5); Carbon Dioxide 26 mmol/L (22-29); Chloride 103 mmol/L (98-107); Globulin 2.4 g/dL (1.3-4.6); Glomerular Filtration Rate 129.1 mL/min (90-130); Glucose 144 mg/dL (65-115); Osmolality Calculated 291 mOsm/kg (285-295); Sodium 140 mmol/L (136-145); Total Bilirubin 0.3 mg/dL (0.15-1.2); Total Protein 6.6 g/dL (6.6-8.7)
[2022-07-23] MEDS: sodium chloride 0.9% 250 ML 100 ML IV (10:30)
[2022-07-23] MEDS: ondansetron 2 mg/ML SDV 2 mL 8 MG IVP (10:32)
[2022-07-23] MEDS: famotidine 20 mg/2 mL INJ IVP (10:34)
[2022-07-23] MEDS: diphenhydrAMINE 50 mg/mL SDV 1mL 25 MG IVP (10:34)
[2022-07-23 12:24] VITALS: BP 123/82; PULSE 80; RESP 16; TEMP 37; O2SAT 99
[2022-07-30 09:42] LABS: Basophils # 0.1 10^3/uL (0.0-0.1); Basophils % 1.4 %; Eosinophils # 0.2 10^3/uL (0.0-0.8); Hematocrit 30.6 % (37.0-47.0); Hemoglobin 10.2 g/dL (11.5-15.3); Lymphocytes # 2.2 10^3/uL (0.8-4.8); Lymphocytes % 28.1 %; Mean Corpuscular HGB Conc 33.3 g/dL (30.0-36.0); Mean Corpuscular Hemoglobin 32.4 pg (28.0-34.0); Mean Corpuscular Volume 97.1 fl (81-99); Mean Platelet Volume 9.1 fL (7.4-10.4); Monocytes # 0.7 10^3/uL (0.2-0.9); Monocytes % 9.4 %; Neutrophils # 4.33 10^3/uL (1.8-7.7); Neutrophils % 56.2 %; Nucleated Red Blood Cells % 0 %; Platelet Count 406 10^3/cmm (130-400); Red Blood Count 3.15 10^6/uL (4.1-5.3); Red Cell Distribution Width 16.5 % (12.1-15.1); White Blood Count 7.7 10^3/uL (4.0-10.0)
[2022-07-30 10:00] LABS: Alanine Aminotransferase 18 U/L (0-33); Albumin Level 4.1 g/dL (3.5-5.2); Alkaline Phosphatase 72 U/L (35-105); Anion Gap 12.9 (5-19); Aspartate Amino Transferase 21 U/L (0-32); Blood Urea Nitrogen 7 mg/dL (6-20); Calcium 9.2 mg/dL (8.5-10.5); Carbon Dioxide 27 mmol/L (22-29); Chloride 102 mmol/L (98-107); Globulin 2.9 g/dL (1.3-4.6); Glomerular Filtration Rate 129.1 mL/min (90-130); Glucose 123 mg/dL (65-115); Osmolality Calculated 285 mOsm/kg (285-295); Potassium 3.9 mmol/L (3.5-5.1); Sodium 138 mmol/L (136-145); Total Bilirubin 0.3 mg/dL (0.15-1.2)
[2022-07-30] MEDS: sodium chloride 0.9% 250 ML 100 ML IV (10:50)
[2022-07-30] MEDS: famotidine 20 mg/2 mL INJ IVP (10:53)
[2022-07-30] MEDS: ondansetron 2 mg/ML SDV 2 mL 8 MG IVP (10:53)
[2022-07-30] MEDS: diphenhydrAMINE 50 mg/mL SDV 1mL 25 MG IVP (10:57)
[2022-07-30 12:40] VITALS: BP 113/72; PULSE 80; RESP 16; TEMP 36.4; O2SAT 99
[2022-08-06 08:40] LABS: Basophils # 0.1 10^3/uL (0.0-0.1); Basophils % 1.3 %; Eosinophils # 0.3 10^3/uL (0.0-0.8); Eosinophils % 3.7 %; Hematocrit 29.7 % (37.0-47.0); Hemoglobin 9.8 g/dL (11.5-15.3); Lymphocytes # 1.9 10^3/uL (0.8-4.8); Lymphocytes % 27.3 %; Mean Corpuscular Hemoglobin 32.3 pg (28.0-34.0); Mean Platelet Volume 9.2 fL (7.4-10.4); Monocytes # 0.5 10^3/uL (0.2-0.9); Monocytes % 7.5 %; Neutrophils # 4.15 10^3/uL (1.8-7.7); Neutrophils % 58.5 %; Nucleated Red Blood Cells % 0 %; Platelet Count 372 10^3/cmm (130-400); Red Blood Count 3.03 10^6/uL (4.1-5.3); Red Cell Distribution Width 15.9 % (12.1-15.1); White Blood Count 7.1 10^3/uL (4.0-10.0)
[2022-08-06 08:53] LABS: Alanine Aminotransferase 17 U/L (0-33); Albumin Level 4.1 g/dL (3.5-5.2); Alkaline Phosphatase 65 U/L (35-105); Aspartate Amino Transferase 18 U/L (0-32); Blood Urea Nitrogen 8 mg/dL (6-20); Carbon Dioxide 26 mmol/L (22-29); Chloride 102 mmol/L (98-107); Globulin 2.7 g/dL (1.3-4.6); Glomerular Filtration Rate 129.1 mL/min (90-130); Glucose 125 mg/dL (65-115); Osmolality Calculated 288 mOsm/kg (285-295); Sodium 139 mmol/L (136-145); Total Bilirubin 0.3 mg/dL (0.15-1.2); Total Protein 6.8 g/dL (6.6-8.7)
[2022-08-06] MEDS: sodium chloride 0.9% 250 ML 100 ML IV (09:08)
[2022-08-06] MEDS: ondansetron 2 mg/ML SDV 2 mL 8 MG IVP (09:10)
[2022-08-06] MEDS: famotidine 20 mg/2 mL INJ IVP (09:11)
[2022-08-06] MEDS: diphenhydrAMINE 50 mg/mL SDV 1mL 25 MG IVP (09:14)
[2022-08-06 11:08] VITALS: BP 138/87; PULSE 80; RESP 16; TEMP 37.1; O2SAT 98
[2022-08-13 08:25] LABS: Basophils % 0.6 %; Eosinophils # 0.2 10^3/uL (0.0-0.8); Eosinophils % 3.4 %; Hematocrit 29.6 % (37.0-47.0); Hemoglobin 10.1 g/dL (11.5-15.3); Lymphocytes % 32.2 %; Mean Corpuscular HGB Conc 34.1 g/dL (30.0-36.0); Mean Corpuscular Hemoglobin 33.2 pg (28.0-34.0); Mean Corpuscular Volume 97.4 fl (81-99); Mean Platelet Volume 8.9 fL (7.4-10.4); Monocytes # 0.4 10^3/uL (0.2-0.9); Monocytes % 7.1 %; Neutrophils # 3.39 10^3/uL (1.8-7.7); Neutrophils % 54.9 %; Nucleated Red Blood Cells % 0 %; Platelet Count 335 10^3/cmm (130-400); Red Blood Count 3.04 10^6/uL (4.1-5.3); Red Cell Distribution Width 15.7 % (12.1-15.1); White Blood Count 6.2 10^3/uL (4.0-10.0)
[2022-08-13 08:45] LABS: Alanine Aminotransferase 19 U/L (0-33); Albumin Level 4.2 g/dL (3.5-5.2); Alkaline Phosphatase 65 U/L (35-105); Anion Gap 14.9 (5-19); Aspartate Amino Transferase 21 U/L (0-32); Blood Urea Nitrogen 8 mg/dL (6-20); Calcium 9.1 mg/dL (8.5-10.5); Carbon Dioxide 26 mmol/L (22-29); Chloride 99 mmol/L (98-107); Globulin 2.8 g/dL (1.3-4.6); Glomerular Filtration Rate 129.1 mL/min (90-130); Glucose 150 mg/dL (65-115); Osmolality Calculated 283 mOsm/kg (285-295); Potassium 3.9 mmol/L (3.5-5.1); Sodium 136 mmol/L (136-145); Total Bilirubin 0.3 mg/dL (0.15-1.2)
[2022-08-13] MEDS: sodium chloride 0.9% 250 ML 100 ML IV (09:10)
[2022-08-13] MEDS: ondansetron 2 mg/ML SDV 2 mL 8 MG IVP (09:11)
[2022-08-13] MEDS: diphenhydrAMINE 50 mg/mL SDV 1mL 25 MG IVP (09:13)
[2022-08-13] MEDS: famotidine 20 mg/2 mL INJ IVP (09:13)
[2022-08-13 11:06] VITALS: BP 124/76; PULSE 82; RESP 16; TEMP 36.8; O2SAT 95
== END 2022-08-19 23:59 | disposition home or self-care (01) ==
PROVIDERS: PCP Family Medicine; Visit Provider Internal Medicine Medical Oncology
DX: Z51.11 Encounter for antineoplastic chemotherapy (principal); C50.411 Malignant neoplasm of upper-outer quadrant of right female breast; Z79.899 Other long term (current) drug therapy; Z79.52 Long term (current) use of systemic steroids; Z17.0 Estrogen receptor positive status [ER+]
CPT/HCPCS: 80053; 85025; 96367; 96375; 96413; J1100; J1200; J2405; J3490; J7050; J9267

== ENCOUNTER 2022-09-17 08:30 | Oncology outpatient (recurring) (ONCR) | payer BC, SELFPAY ==
[2022-08-20 08:33] LABS: Basophils # 0.1 10^3/uL (0.0-0.1); Eosinophils # 0.1 10^3/uL (0.0-0.8); Eosinophils % 1.9 %; Hematocrit 29.7 % (37.0-47.0); Hemoglobin 9.7 g/dL (11.5-15.3); Lymphocytes # 1.8 10^3/uL (0.8-4.8); Lymphocytes % 25.9 %; Mean Corpuscular HGB Conc 32.7 g/dL (30.0-36.0); Mean Platelet Volume 8.9 fL (7.4-10.4); Monocytes # 0.6 10^3/uL (0.2-0.9); Monocytes % 8.1 %; Neutrophils % 61.4 %; Nucleated Red Blood Cells % 0 %; Platelet Count 365 10^3/cmm (130-400); Red Blood Count 3.03 10^6/uL (4.1-5.3); Red Cell Distribution Width 15.6 % (12.1-15.1)
[2022-08-20 08:55] LABS: Alanine Aminotransferase 17 U/L (0-33); Albumin Level 3.9 g/dL (3.5-5.2); Alkaline Phosphatase 63 U/L (35-105); Anion Gap 15.9 (5-19); Aspartate Amino Transferase 18 U/L (0-32); Blood Urea Nitrogen 8 mg/dL (6-20); Calcium 9.1 mg/dL (8.5-10.5); Carbon Dioxide 26 mmol/L (22-29); Chloride 101 mmol/L (98-107); Glomerular Filtration Rate 129.1 mL/min (90-130); Glucose 128 mg/dL (65-115); Osmolality Calculated 288 mOsm/kg (285-295); Potassium 3.9 mmol/L (3.5-5.1); Sodium 139 mmol/L (136-145); Total Bilirubin 0.3 mg/dL (0.15-1.2); Total Protein 6.9 g/dL (6.6-8.7)
[2022-08-20] MEDS: sodium chloride 0.9% 250 ML 100 ML IV (10:53)
[2022-08-20] MEDS: ondansetron 2 mg/ML SDV 2 mL 8 MG IVP (10:53)
[2022-08-20] MEDS: famotidine 20 mg/2 mL INJ IVP (10:56)
[2022-08-20] MEDS: diphenhydrAMINE 50 mg/mL SDV 1mL 25 MG IVP (11:00)
[2022-08-20 13:27] VITALS: BP 134/85; PULSE 89; RESP 16; TEMP 36.9; O2SAT 97
[2022-08-28 11:45] LABS: Basophils # 0.1 10^3/uL (0.0-0.1); Basophils % 0.8 %; Eosinophils # 0.2 10^3/uL (0.0-0.8); Eosinophils % 2.1 %; Hematocrit 32.3 % (37.0-47.0); Hemoglobin 10.7 g/dL (11.5-15.3); Lymphocytes # 1.7 10^3/uL (0.8-4.8); Lymphocytes % 22.7 %; Mean Corpuscular HGB Conc 33.1 g/dL (30.0-36.0); Mean Corpuscular Hemoglobin 32.4 pg (28.0-34.0); Mean Corpuscular Volume 97.9 fl (81-99); Mean Platelet Volume 8.6 fL (7.4-10.4); Monocytes # 0.7 10^3/uL (0.2-0.9); Monocytes % 9.3 %; Neutrophils # 4.62 10^3/uL (1.8-7.7); Neutrophils % 63.2 %; Nucleated Red Blood Cells % 0 %; Platelet Count 431 10^3/cmm (130-400); Red Cell Distribution Width 15.3 % (12.1-15.1); White Blood Count 7.3 10^3/uL (4.0-10.0)
[2022-08-28 12:08] LABS: Alanine Aminotransferase 15 U/L (0-33); Albumin Level 4.2 g/dL (3.5-5.2); Alkaline Phosphatase 64 U/L (35-105); Aspartate Amino Transferase 19 U/L (0-32); Blood Urea Nitrogen 10 mg/dL (6-20); Calcium 9.3 mg/dL (8.5-10.5); Carbon Dioxide 28 mmol/L (22-29); Chloride 99 mmol/L (98-107); Globulin 3.2 g/dL (1.3-4.6); Glomerular Filtration Rate 129.1 mL/min (90-130); Glucose 113 mg/dL (65-115); Osmolality Calculated 284 mOsm/kg (285-295); Sodium 137 mmol/L (136-145); Total Bilirubin 0.3 mg/dL (0.15-1.2); Total Protein 7.4 g/dL (6.6-8.7)
[2022-09-04 11:40] LABS: Basophils # 0.1 10^3/uL (0.0-0.1); Basophils % 0.6 %; Eosinophils # 0.2 10^3/uL (0.0-0.8); Eosinophils % 1.8 %; Hematocrit 31.2 % (37.0-47.0); Hemoglobin 10.1 g/dL (11.5-15.3); Lymphocytes # 2.2 10^3/uL (0.8-4.8); Lymphocytes % 21.4 %; Mean Corpuscular HGB Conc 32.4 g/dL (30.0-36.0); Mean Corpuscular Hemoglobin 31.4 pg (28.0-34.0); Mean Corpuscular Volume 96.9 fl (81-99); Mean Platelet Volume 8.7 fL (7.4-10.4); Monocytes % 9.4 %; Neutrophils # 6.67 10^3/uL (1.8-7.7); Neutrophils % 65.4 %; Nucleated Red Blood Cells % 0 %; Platelet Count 387 10^3/cmm (130-400); Red Blood Count 3.22 10^6/uL (4.1-5.3); Red Cell Distribution Width 14.4 % (12.1-15.1); White Blood Count 10.2 10^3/uL (4.0-10.0)
[2022-09-04 11:59] LABS: Alanine Aminotransferase 17 U/L (0-33); Albumin Level 4.1 g/dL (3.5-5.2); Alkaline Phosphatase 67 U/L (35-105); Anion Gap 15.9 (5-19); Aspartate Amino Transferase 24 U/L (0-32); Blood Urea Nitrogen 9 mg/dL (6-20); Calcium 9.6 mg/dL (8.5-10.5); Carbon Dioxide 28 mmol/L (22-29); Chloride 101 mmol/L (98-107); Creatinine Clr Calc Pharmacy 155.1496; Glomerular Filtration Rate 129.1 mL/min (90-130); Glucose 115 mg/dL (65-115); Osmolality Calculated 292 mOsm/kg (285-295); Potassium 3.9 mmol/L (3.5-5.1); Sodium 141 mmol/L (136-145); Total Bilirubin 0.3 mg/dL (0.15-1.2); Total Protein 7.1 g/dL (6.6-8.7)
[2022-09-04] MEDS: sodium chloride 0.9% 250 ML 100 ML IV (13:37)
[2022-09-04] MEDS: ondansetron 2 mg/ML SDV 2 mL 8 MG IVP (13:39)
[2022-09-04] MEDS: famotidine 20 mg/2 mL INJ IVP (13:42)
[2022-09-04] MEDS: diphenhydrAMINE 50 mg/mL SDV 1mL 25 MG IVP (13:42)
[2022-09-04 16:20] VITALS: BP 128/81; PULSE 91; RESP 16; TEMP 36.9; O2SAT 95
[2022-09-11 08:23] LABS: Basophils # 0.1 10^3/uL (0.0-0.1); Basophils % 0.8 %; Eosinophils # 0.4 10^3/uL (0.0-0.8); Eosinophils % 3.1 %; Hematocrit 30.9 % (37.0-47.0); Hemoglobin 9.9 g/dL (11.5-15.3); Lymphocytes # 3.1 10^3/uL (0.8-4.8); Lymphocytes % 26.6 %; Mean Platelet Volume 9.2 fL (7.4-10.4); Monocytes # 0.8 10^3/uL (0.2-0.9); Monocytes % 6.6 %; Neutrophils # 6.71 10^3/uL (1.8-7.7); Neutrophils % 57.8 %; Nucleated Red Blood Cells % 0.2 %; Platelet Count 450 10^3/cmm (130-400); Red Blood Count 3.09 10^6/uL (4.1-5.3); Red Cell Distribution Width 14.6 % (12.1-15.1); White Blood Count 11.6 10^3/uL (4.0-10.0)
[2022-09-11 08:34] LABS: Alanine Aminotransferase 15 U/L (0-33); Albumin Level 4.1 g/dL (3.5-5.2); Alkaline Phosphatase 71 U/L (35-105); Aspartate Amino Transferase 22 U/L (0-32); Blood Urea Nitrogen 8 mg/dL (6-20); Calcium 9.1 mg/dL (8.5-10.5); Carbon Dioxide 28 mmol/L (22-29); Chloride 100 mmol/L (98-107); Creatinine Clr Calc Pharmacy 155.1496; Globulin 2.8 g/dL (1.3-4.6); Glomerular Filtration Rate 129.1 mL/min (90-130); Glucose 98 mg/dL (65-115); Osmolality Calculated 286 mOsm/kg (285-295); Sodium 139 mmol/L (136-145); Total Bilirubin 0.2 mg/dL (0.15-1.2); Total Protein 6.9 g/dL (6.6-8.7)
[2022-09-11 08:52] LABS: Slide Review Slide Review Perform
[2022-09-11] MEDS: sodium chloride 0.9% 250 ML 100 ML IV (09:13)
[2022-09-11] MEDS: ondansetron 2 mg/ML SDV 2 mL 8 MG IVP (09:15)
[2022-09-11] MEDS: famotidine 20 mg/2 mL INJ IVP (09:20)
[2022-09-11] MEDS: diphenhydrAMINE 50 mg/mL SDV 1mL 25 MG IVP (09:20)
[2022-09-11 10:58] VITALS: BP 126/84; PULSE 81; RESP 16; TEMP 37; O2SAT 96
[2022-09-17 08:49] LABS: Basophils % 0.6 %; Eosinophils # 0.2 10^3/uL (0.0-0.8); Eosinophils % 3.4 %; Hematocrit 32.3 % (37.0-47.0); Hemoglobin 10.6 g/dL (11.5-15.3); Lymphocytes % 31.3 %; Mean Corpuscular HGB Conc 32.8 g/dL (30.0-36.0); Mean Corpuscular Hemoglobin 31.9 pg (28.0-34.0); Mean Corpuscular Volume 97.3 fl (81-99); Mean Platelet Volume 8.9 fL (7.4-10.4); Monocytes # 0.4 10^3/uL (0.2-0.9); Monocytes % 5.8 %; Neutrophils # 3.69 10^3/uL (1.8-7.7); Neutrophils % 57.8 %; Nucleated Red Blood Cells % 0 %; Platelet Count 375 10^3/cmm (130-400); Red Blood Count 3.32 10^6/uL (4.1-5.3); Red Cell Distribution Width 14.6 % (12.1-15.1); White Blood Count 6.4 10^3/uL (4.0-10.0)
[2022-09-17 09:04] LABS: Alanine Aminotransferase 16 U/L (0-33); Albumin Level 4.1 g/dL (3.5-5.2); Alkaline Phosphatase 70 U/L (35-105); Aspartate Amino Transferase 18 U/L (0-32); Blood Urea Nitrogen 9 mg/dL (6-20); Calcium 9.2 mg/dL (8.5-10.5); Carbon Dioxide 27 mmol/L (22-29); Chloride 101 mmol/L (98-107); Globulin 2.9 g/dL (1.3-4.6); Glomerular Filtration Rate 129.1 mL/min (90-130); Glucose 129 mg/dL (65-115); Osmolality Calculated 286 mOsm/kg (285-295); Sodium 138 mmol/L (136-145); Total Bilirubin 0.2 mg/dL (0.15-1.2)
[2022-09-17] MEDS: sodium chloride 0.9% 250 ML 100 ML IV (10:13)
[2022-09-17] MEDS: ondansetron 2 mg/ML SDV 2 mL 8 MG IVP (10:13)
[2022-09-17] MEDS: famotidine 20 mg/2 mL INJ IVP (10:16)
[2022-09-17] MEDS: diphenhydrAMINE 50 mg/mL SDV 1mL 25 MG IVP (10:19)
[2022-09-17 12:59] VITALS: BP 143/83; PULSE 83; RESP 16; TEMP 36.6; O2SAT 99
== END 2022-09-18 23:59 | disposition home or self-care (01) ==
PROVIDERS: PCP Family Medicine; Visit Provider Internal Medicine Medical Oncology
DX: Z51.11 Encounter for antineoplastic chemotherapy (principal); C50.811 Malignant neoplasm of overlapping sites of right female breast; Z17.0 Estrogen receptor positive status [ER+]; G62.0 Drug-induced polyneuropathy; T45.1X5A Adverse effect of antineoplastic and immunosuppressive drugs, initial encounter; R53.0 Neoplastic (malignant) related fatigue; I82.890 Acute embolism and thrombosis of other specified veins; Z79.01 Long term (current) use of anticoagulants; Z79.899 Other long term (current) drug therapy
CPT/HCPCS: 80053; 85025; 96367; 96375; 96413; J1100; J1200; J2405; J3490; J7050; J9267

== ENCOUNTER 2022-10-01 09:30 | Oncology outpatient (recurring) (ONCR) | payer BC, SELFPAY ==
[2022-09-24 09:34] LABS: Basophils # 0.1 10^3/uL (0.0-0.1); Basophils % 0.7 %; Eosinophils # 0.1 10^3/uL (0.0-0.8); Eosinophils % 1.3 %; Hematocrit 33.5 % (37.0-47.0); Hemoglobin 10.9 g/dL (11.5-15.3); Lymphocytes # 1.9 10^3/uL (0.8-4.8); Lymphocytes % 24.3 %; Mean Corpuscular HGB Conc 32.5 g/dL (30.0-36.0); Mean Corpuscular Hemoglobin 31.9 pg (28.0-34.0); Monocytes # 0.5 10^3/uL (0.2-0.9); Monocytes % 6.1 %; Neutrophils # 5.05 10^3/uL (1.8-7.7); Neutrophils % 65.6 %; Nucleated Red Blood Cells % 0 %; Platelet Count 480 10^3/cmm (130-400); Red Blood Count 3.42 10^6/uL (4.1-5.3); Red Cell Distribution Width 15.3 % (12.1-15.1); White Blood Count 7.7 10^3/uL (4.0-10.0)
[2022-09-24 09:52] LABS: Alanine Aminotransferase 15 U/L (0-33); Alkaline Phosphatase 67 U/L (35-105); Anion Gap 15.1 (5-19); Aspartate Amino Transferase 16 U/L (0-32); Blood Urea Nitrogen 10 mg/dL (6-20); Calcium 9.1 mg/dL (8.5-10.5); Carbon Dioxide 27 mmol/L (22-29); Chloride 100 mmol/L (98-107); Globulin 2.9 g/dL (1.3-4.6); Glucose 133 mg/dL (65-115); Osmolality Calculated 287 mOsm/kg (285-295); Potassium 4.1 mmol/L (3.5-5.1); Sodium 138 mmol/L (136-145); Total Bilirubin 0.3 mg/dL (0.15-1.2); Total Protein 6.9 g/dL (6.6-8.7)
[2022-09-24] MEDS: sodium chloride 0.9% 250 ML 100 ML IV (11:33)
[2022-09-24] MEDS: ondansetron 2 mg/ML SDV 2 mL 8 MG IVP (11:40)
[2022-09-24] MEDS: famotidine 20 mg/2 mL INJ IVP (11:41)
[2022-09-24] MEDS: diphenhydrAMINE 50 mg/mL SDV 1mL 25 MG IVP (11:41)
[2022-09-24 13:53] VITALS: BP 138/77; PULSE 85; RESP 18; TEMP 36.8; O2SAT 96
[2022-10-01 09:45] LABS: Basophils # 0.1 10^3/uL (0.0-0.1); Eosinophils # 0.2 10^3/uL (0.0-0.8); Eosinophils % 1.4 %; Hematocrit 31.2 % (37.0-47.0); Hemoglobin 10.4 g/dL (11.5-15.3); Lymphocytes % 27.9 %; Mean Corpuscular HGB Conc 33.3 g/dL (30.0-36.0); Mean Corpuscular Hemoglobin 32.2 pg (28.0-34.0); Mean Corpuscular Volume 96.6 fl (81-99); Mean Platelet Volume 8.9 fL (7.4-10.4); Monocytes # 0.8 10^3/uL (0.2-0.9); Neutrophils # 5.75 10^3/uL (1.8-7.7); Neutrophils % 53.3 %; Nucleated Red Blood Cells % 0.4 %; Platelet Count 565 10^3/cmm (130-400); Red Blood Count 3.23 10^6/uL (4.1-5.3); Red Cell Distribution Width 15.4 % (12.1-15.1); Slide Review Slide Review Perform; White Blood Count 10.8 10^3/uL (4.0-10.0)
[2022-10-01 10:00] LABS: Alanine Aminotransferase 14 U/L (0-33); Alkaline Phosphatase 56 U/L (35-105); Anion Gap 14.9 (5-19); Aspartate Amino Transferase 21 U/L (0-32); Blood Urea Nitrogen 11 mg/dL (6-20); Carbon Dioxide 28 mmol/L (22-29); Chloride 103 mmol/L (98-107); Globulin 2.6 g/dL (1.3-4.6); Glomerular Filtration Rate 232.7 mL/min (90-130); Glucose 93 mg/dL (65-115); Osmolality Calculated 293 mOsm/kg (285-295); Potassium 3.9 mmol/L (3.5-5.1); Sodium 142 mmol/L (136-145); Total Bilirubin 0.2 mg/dL (0.15-1.2); Total Protein 6.6 g/dL (6.6-8.7)
[2022-10-01] MEDS: sodium chloride 0.9% 250 ML 100 ML IV (11:20)
[2022-10-01] MEDS: ondansetron 2 mg/ML SDV 2 mL 8 MG IVP (11:25)
[2022-10-01] MEDS: famotidine 20 mg/2 mL INJ IVP (11:30)
[2022-10-01] MEDS: diphenhydrAMINE 50 mg/mL SDV 1mL 25 MG IVP (11:35)
== END 2022-10-19 23:59 | disposition home or self-care (01) ==
PROVIDERS: PCP Family Medicine; Visit Provider Internal Medicine Medical Oncology
DX: Z51.11 Encounter for antineoplastic chemotherapy (principal); C50.411 Malignant neoplasm of upper-outer quadrant of right female breast; Z79.52 Long term (current) use of systemic steroids; Z17.0 Estrogen receptor positive status [ER+]; Z79.899 Other long term (current) drug therapy
CPT/HCPCS: 80053; 85025; 96367; 96375; 96413; 96415; J1100; J1200; J2405; J3490; J7050; J9267

== ENCOUNTER 2022-11-12 13:07 | Oncology outpatient (recurring) (ONCR) | payer BC, SELFPAY ==
[2022-11-12 13:55] LABS: Basophils # 0.1 10^3/uL (0.0-0.1); Basophils % 0.5 %; Eosinophils # 0.4 10^3/uL (0.0-0.8); Eosinophils % 3.3 %; Hematocrit 32.4 % (37.0-47.0); Hemoglobin 10.3 g/dL (11.5-15.3); Lymphocytes # 2.9 10^3/uL (0.8-4.8); Lymphocytes % 26.8 %; Mean Corpuscular HGB Conc 31.8 g/dL (30.0-36.0); Mean Corpuscular Hemoglobin 29.4 pg (28.0-34.0); Mean Corpuscular Volume 92.6 fl (81-99); Monocytes # 0.7 10^3/uL (0.2-0.9); Monocytes % 6.4 %; Neutrophils % 61.9 %; Nucleated Red Blood Cells % 0 %; Platelet Count 412 10^3/cmm (130-400); Red Cell Distribution Width 15.2 % (12.1-15.1); White Blood Count 10.7 10^3/uL (4.0-10.0)
[2022-11-12 14:22] LABS: Albumin Level 3.9 g/dL (3.5-5.2); Alkaline Phosphatase 87 U/L (35-105); Aspartate Amino Transferase 23 U/L (0-32); Blood Urea Nitrogen 6 mg/dL (6-20); Calcium 9.9 mg/dL (8.5-10.5); Carbon Dioxide 28 mmol/L (22-29); Chloride 101 mmol/L (98-107); Globulin 3.3 g/dL (1.3-4.6); Glomerular Filtration Rate 129.1 mL/min (90-130); Glucose 142 mg/dL (65-115); Iron 68 ug/dL (37-145); Osmolality Calculated 294 mOsm/kg (285-295); Percent Saturation 19.5 % (20-50); Sodium 142 mmol/L (136-145); Total Bilirubin 0.3 mg/dL (0.15-1.2); Total Iron Binding Capacity 347 mcg/dl; Total Protein 7.2 g/dL (6.6-8.7); Unsaturated Iron Binding 279 ug/dL (112-347)
[2022-11-12 14:32] LABS: Alanine Aminotransferase 21 U/L (0-33)
== END 2022-11-19 23:59 | disposition home or self-care (01) ==
PROVIDERS: PCP Family Medicine; Visit Provider Internal Medicine Medical Oncology
DX: C50.811 Malignant neoplasm of overlapping sites of right female breast; Z17.0 Estrogen receptor positive status [ER+]; Z90.13 Acquired absence of bilateral breasts and nipples; C77.3 Secondary and unspecified malignant neoplasm of axilla and upper limb lymph nodes; I82.890 Acute embolism and thrombosis of other specified veins; Z79.01 Long term (current) use of anticoagulants; Z79.891 Long term (current) use of opiate analgesic; Z79.899 Other long term (current) drug therapy; Z92.21 Personal history of antineoplastic chemotherapy
CPT/HCPCS: 36591; 80053; 83540; 83550; 85025

== ENCOUNTER 2022-11-25 16:00 | Oncology outpatient (recurring) (ONCR) | payer BC, SELFPAY ==
[2022-11-20 13:07] LABS: Basophils % 0.5 %; Eosinophils # 0.4 10^3/uL (0.0-0.8); Eosinophils % 5.2 %; Hematocrit 30.9 % (37.0-47.0); Lymphocytes # 2.2 10^3/uL (0.8-4.8); Lymphocytes % 26.3 %; Mean Corpuscular HGB Conc 32.4 g/dL (30.0-36.0); Mean Corpuscular Hemoglobin 29.8 pg (28.0-34.0); Mean Platelet Volume 8.7 fL (7.4-10.4); Monocytes # 0.7 10^3/uL (0.2-0.9); Monocytes % 8.7 %; Neutrophils # 4.97 10^3/uL (1.8-7.7); Neutrophils % 58.7 %; Nucleated Red Blood Cells % 0 %; Platelet Count 304 10^3/cmm (130-400); Red Blood Count 3.36 10^6/uL (4.1-5.3); Red Cell Distribution Width 14.9 % (12.1-15.1); White Blood Count 8.5 10^3/uL (4.0-10.0)
[2022-11-20 13:38] LABS: Alanine Aminotransferase 20 U/L (0-33); Alkaline Phosphatase 68 U/L (35-105); Anion Gap 13.8 (5-19); Aspartate Amino Transferase 35 U/L (0-32); Blood Urea Nitrogen 4 mg/dL (6-20); Calcium 9.2 mg/dL (8.5-10.5); Carbon Dioxide 27 mmol/L (22-29); Chloride 101 mmol/L (98-107); Estradiol 23.9 pg/mL; Globulin 3.4 g/dL (1.3-4.6); Glomerular Filtration Rate 129.1 mL/min (90-130); Glucose 111 mg/dL (65-115); Osmolality Calculated 284 mOsm/kg (285-295); Potassium 3.8 mmol/L (3.5-5.1); Sodium 138 mmol/L (136-145); Total Bilirubin 0.2 mg/dL (0.15-1.2); Total Protein 7.4 g/dL (6.6-8.7)
[2022-11-20 13:39] LABS: Luteinizing Hormone 16.4 mIU/mL (0.5-41.7)
[2022-11-20 14:48] LABS: Follicle Stimulating Hormone 28.3 mIU/mL
[2022-11-25 16:32] LABS: Basophils % 0.4 %; Eosinophils # 0.3 10^3/uL (0.0-0.8); Eosinophils % 4.3 %; Hematocrit 32.8 % (37.0-47.0); Hemoglobin 10.5 g/dL (11.5-15.3); Lymphocytes # 2.1 10^3/uL (0.8-4.8); Lymphocytes % 26.8 %; Mean Corpuscular Hemoglobin 29.4 pg (28.0-34.0); Mean Corpuscular Volume 91.9 fl (81-99); Mean Platelet Volume 9.1 fL (7.4-10.4); Monocytes # 0.5 10^3/uL (0.2-0.9); Monocytes % 6.5 %; Neutrophils # 4.72 10^3/uL (1.8-7.7); Neutrophils % 61.2 %; Nucleated Red Blood Cells % 0 %; Platelet Count 334 10^3/cmm (130-400); Red Blood Count 3.57 10^6/uL (4.1-5.3); Red Cell Distribution Width 14.9 % (12.1-15.1); White Blood Count 7.7 10^3/uL (4.0-10.0)
[2022-11-25 17:15] LABS: Thyroid Stimulating Hormone 1.73 uIU/mL (0.27-4.20)
== END 2022-12-17 23:59 | disposition home or self-care (01) ==
PROVIDERS: PCP Family Medicine; Visit Provider Nurse Practitioner
DX: C50.411 Malignant neoplasm of upper-outer quadrant of right female breast; Z17.0 Estrogen receptor positive status [ER+]; C77.3 Secondary and unspecified malignant neoplasm of axilla and upper limb lymph nodes; Z90.13 Acquired absence of bilateral breasts and nipples; R11.0 Nausea; R19.7 Diarrhea, unspecified; D64.81 Anemia due to antineoplastic chemotherapy; D70.1 Agranulocytosis secondary to cancer chemotherapy; T45.1X5A Adverse effect of antineoplastic and immunosuppressive drugs, initial encounter; R53.83 Other fatigue; I82.890 Acute embolism and thrombosis of other specified veins; Z79.01 Long term (current) use of anticoagulants; Z79.818 Long term (current) use of other agents affecting estrogen receptors and estrogen levels; Z79.899 Other long term (current) drug therapy
CPT/HCPCS: 36591; 80053; 82670; 83001; 83002; 84443; 85025; 87040

== ENCOUNTER 2022-11-29 13:16 | Outpatient (CLI) | payer BC, SELFPAY ==
--- NOTE | 2022-11-29 14:00 | XR_ITS ---
WS: [id number] DEXA (DUAL ENERGY X-RAY ABSORPTIOMETRY) Bone mineral density was performed using a WISE s.r.l machine. HISTORY: asymptomatic postmenopausal state COMPARISON: None available. Lumbar spine BMD (L1-L4): 1.168 g/cm2 T score: -0.1 Z score: -0.6 Total hip BMD: Left: 1.087 g/cm2. T score: 0.6 Z score: 0.4 Right: 1.067 g/cm2. T score: 0.5 Z score: 0.2 10 year probability of a major osteoporotic fracture is 7.8%. XR/XR DEXA axial skeleton* 82575 IMPRESSION: NORMAL BONE MINERAL DENSITY based upon the WHO classification for females.
== END 2022-11-29 13:17 | disposition home or self-care (01) ==
LOC: RAD 13:20
PROVIDERS: PCP Family Medicine; Visit Provider Internal Medicine Medical Oncology
DX: Z78.0 Asymptomatic menopausal state (principal)
CPT/HCPCS: 77080

== ENCOUNTER 2022-12-09 16:12 | Oncology outpatient (recurring) (ONCR) | payer BC, SELFPAY | END 2022-12-17 23:59 | disposition home or self-care (01) | PROVIDERS: PCP Family Medicine; Visit Provider Internal Medicine Medical Oncology | DX: C50.411 Malignant neoplasm of upper-outer quadrant of right female breast (principal); Z17.0 Estrogen receptor positive status [ER+] ==

== ENCOUNTER 2023-01-17 08:39 | Oncology outpatient (recurring) (ONCR) | payer BC, SELFPAY ==
[2022-12-19 08:33] LABS: Basophils # 0.1 10^3/uL (0.0-0.1); Basophils % 0.6 %; Eosinophils # 0.3 10^3/uL (0.0-0.8); Eosinophils % 2.8 %; Hematocrit 31.8 % (37.0-47.0); Hemoglobin 10.1 g/dL (11.5-15.3); Lymphocytes # 3.1 10^3/uL (0.8-4.8); Lymphocytes % 34.7 %; Mean Corpuscular HGB Conc 31.8 g/dL (30.0-36.0); Mean Corpuscular Hemoglobin 28.5 pg (28.0-34.0); Mean Corpuscular Volume 89.6 fl (81-99); Mean Platelet Volume 9.3 fL (7.4-10.4); Monocytes # 0.7 10^3/uL (0.2-0.9); Monocytes % 8.2 %; Neutrophils # 4.72 10^3/uL (1.8-7.7); Neutrophils % 52.9 %; Nucleated Red Blood Cells % 0 %; Platelet Count 368 10^3/cmm (130-400); Red Blood Count 3.55 10^6/uL (4.1-5.3); Red Cell Distribution Width 14.7 % (12.1-15.1); White Blood Count 8.9 10^3/uL (4.0-10.0)
[2022-12-19 08:47] LABS: Erythrocyte Sedimentation Rate 38 mm/hr (0-15)
[2022-12-19 08:49] LABS: Alanine Aminotransferase 14 U/L (0-33); Albumin Level 3.7 g/dL (3.5-5.2); Alkaline Phosphatase 66 U/L (35-105); Anion Gap 14.3 (5-19); Aspartate Amino Transferase 24 U/L (0-32); Blood Urea Nitrogen 6 mg/dL (6-20); Calcium 8.2 mg/dL (8.5-10.5); Carbon Dioxide 26 mmol/L (22-29); Chloride 102 mmol/L (98-107); Globulin 2.9 g/dL (1.3-4.6); Glucose 110 mg/dL (65-115); Osmolality Calculated 286 mOsm/kg (285-295); Potassium 3.3 mmol/L (3.5-5.1); Sodium 139 mmol/L (136-145); Total Bilirubin 0.2 mg/dL (0.15-1.2); Total Protein 6.6 g/dL (6.6-8.7)
--- NOTE | 2022-12-19 10:04 | N.ONRAD NP_ITS ---
Radiation Oncology Consultation Patient Name: Chrissy Schmid Date of : 1970 Date of Service: 12/19/2022 Attending Physician: Jacob Chambers M.D. Chrissy Schmid was seen in consultation this morning at the request of Gigi Schmidt M.D. for consideration of postmastectomy radiotherapy in the management of a locally advanced breast cancer. The patient was evaluated by her primary care physician for a right breast mass. A bilateral diagnostic mammogram (independently reviewed in [facility]) ordered on March 25, 2022 described an asymmetry measuring 8 mm in the right breast. Ultrasonography revealed a 4 mm x 8 mm x 4 mm no echoic lesion at the 10 o'clock position within the right breast that was 4 cm from the nipple. Abnormal lymphadenopathy was present in the right axilla. And ultrasound-guided biopsy obtained on April 08, 2022 diagnosed a grade 3 invasive ductal carcinoma at the 10 o'clock position. The lymph node biopsy was positive for malignancy. The Breast Prognostic Profile demonstrated estrogen receptor positivity (85%) and progesterone receptor negativity (less than 1%). HER-2 expression was negative (1+; HER2 ratio 1.2). The Ki???67 was 15%. Neoadjuvant chemotherapy was prescribed consisting of 4 cycles of Adriamycin and cyclophosphamide carboplatin between the dates of May 13, 2022 through June 25, 2022. Subsequent weekly paclitaxel was administered for 12 cycles completing on October 01, 2022. A bilateral mastectomy and right lymph node dissection were performed by Kb Hi M.D. on October 16, 2022. The pathology report (personally reviewed in [facility]) confirmed a 1.5 cm poorly differentiated ductal carcinoma within the right mastectomy specimen. A positive surgical margin was noted at the barbie-superior margin. A grade 3 DCIS was present of the solid architectural pattern. A total of 6 lymph nodes were harvested with one harboring metastatic adenocarcinoma. Benign breast tissue was present within the left mastectomy sample. Re-excision was completed on October 28, 2022. The surgical margins were free of malignancy. I reviewed with the Ms. Schmid the [place] [employer] Staging for breast cancer and specifically the patient's pathological stage yIIA (T1cN1a) corresponding to her disease. The initial clinical stage was IIA (T1bN1). I also discussed the classic studies by the [employer] and the Early Breast Cancer Trialists??? Collaborative Group. She is aware that these studies demonstrated an overall survival improvement in patients treated with post-mastectomy radiotherapy. I would recommend a five week course of right chest wall and regional lymph node radiotherapy. A computed tomographic radiotherapy planning scan with contrast in the treatment position will be performed to identify the clinical tumor volumes. The potential toxicities of post-mastectomy radiotherapy were reviewed. The patient has verbalized understanding would like to proceed as recommended. The patient's medical treatment plan was discussed with Gigi Schmidt M.D. Signed by: Jacob Chambers 12/19/2022 10:52:04 AM
--- NOTE | 2023-01-08 | CT_ITS ---
Radiation Therapy Planning CT images; total exam DLP: 1067.46 mGy-cm MTDD
[2023-01-08 11:23] LABS: Basophils # 0.1 10^3/uL (0.0-0.1); Basophils % 0.6 %; Eosinophils # 0.2 10^3/uL (0.0-0.8); Eosinophils % 1.8 %; Hematocrit 33.1 % (37.0-47.0); Hemoglobin 10.6 g/dL (11.5-15.3); Lymphocytes # 2.2 10^3/uL (0.8-4.8); Lymphocytes % 22.2 %; Mean Corpuscular Hemoglobin 28.3 pg (28.0-34.0); Mean Corpuscular Volume 88.5 fl (81-99); Mean Platelet Volume 8.9 fL (7.4-10.4); Monocytes # 0.5 10^3/uL (0.2-0.9); Monocytes % 4.9 %; Neutrophils # 6.93 10^3/uL (1.8-7.7); Neutrophils % 69.7 %; Nucleated Red Blood Cells % 0 %; Platelet Count 371 10^3/cmm (130-400); Red Blood Count 3.74 10^6/uL (4.1-5.3)
[2023-01-08 11:40] LABS: Alanine Aminotransferase 26 U/L (0-33); Alkaline Phosphatase 76 U/L (35-105); Anion Gap 15.8 (5-19); Aspartate Amino Transferase 47 U/L (0-32); Blood Urea Nitrogen 9 mg/dL (6-20); Calcium 8.9 mg/dL (8.5-10.5); Carbon Dioxide 28 mmol/L (22-29); Chloride 102 mmol/L (98-107); Globulin 3.1 g/dL (1.3-4.6); Glomerular Filtration Rate 128.6 mL/min (90-130); Glucose 148 mg/dL (65-115); Osmolality Calculated 293 mOsm/kg (285-295); Potassium 4.8 mmol/L (3.5-5.1); Sodium 141 mmol/L (136-145); Total Bilirubin 0.2 mg/dL (0.15-1.2); Total Protein 7.1 g/dL (6.6-8.7)
--- NOTE | 2023-01-13 09:37 | ONCRAD TMN_ITS ---
Radiation Oncology Treatment Management Note Patient Name: Chrissy Schmid Date of : 1970 Date of Service: 01/13/2023 Attending Physician: Jacob Chambers M.D. Chrissy Schmid is a 52 year-old white female diagnosed with a pathological stage yIIA (T1cN1a) corresponding to her disease. The initial clinical stage was IIA (T1bN1). The patient was evaluated by her primary care physician for a right breast mass. A bilateral diagnostic mammogram ordered on March 25, 2022 described an asymmetry measuring 8 mm in the right breast. Ultrasonography revealed a 4 mm x 8 mm x 4 mm no echoic lesion at the 10 o'clock position within the right breast that was 4 cm from the nipple. Abnormal lymphadenopathy was present in the right axilla. And ultrasound-guided biopsy obtained on April 08, 2022 diagnosed a grade 3 invasive ductal carcinoma at the 10 o'clock position. The lymph node biopsy was positive for malignancy. The Breast Prognostic Profile demonstrated estrogen receptor positivity (85%) and progesterone receptor negativity (less than 1%). HER-2 expression was negative (1+; HER2 ratio 1.2). The Ki???67 was 15%. Neoadjuvant chemotherapy was prescribed consisting of 4 cycles of Adriamycin and cyclophosphamide carboplatin between the dates of May 13, 2022 through June 25, 2022. Subsequent weekly paclitaxel was administered for 12 cycles completing on October 01, 2022. A bilateral mastectomy and right axillary lymph node dissection were performed by Kb Hi M.D. on October 16, 2022. The pathology report confirmed a 1.5 cm poorly differentiated ductal carcinoma within the right mastectomy specimen. A positive surgical margin was noted at the barbie-superior margin. A grade 3 DCIS was present of the solid architectural pattern. A total of 6 lymph nodes were harvested with one harboring metastatic adenocarcinoma. Benign breast tissue was present within the left mastectomy sample. Re-excision was completed on October 28, 2022. The surgical margins were free of malignancy. She has received 2 Gy of a prescribed 50 Gy delivered with a 3D conformal radiotherapy plan utilizing opposed tangential portal armstrong matched to supraclavicular fossa and PAB ports incorporating a field-in- field treatment technique. Upon review of systems, she denied chest wall complaints related to radiotherapy. On physical examination, the patient weighed 250 lbs. Her temperature was 96.8 ???F and the blood pressure was 141/85 mmHg. Her pulse was 79 bpm and her respiratory rate was 18. There was no erythema within the treatment armstrong of the right chest wall. Continue right chest wall and regional lymph node irradiation as prescribed. Signed by: Jacob Chambers 01/13/2023 9:35:35 AM
== END 2023-01-17 23:59 | disposition home or self-care (01) ==
PROVIDERS: Nurse Practitioner; PCP Family Medicine; Visit Provider Internal Medicine Medical Oncology
DX: Z51.0 Encounter for antineoplastic radiation therapy (principal); C50.411 Malignant neoplasm of upper-outer quadrant of right female breast; Z17.0 Estrogen receptor positive status [ER+]; C77.3 Secondary and unspecified malignant neoplasm of axilla and upper limb lymph nodes; Z90.13 Acquired absence of bilateral breasts and nipples
CPT/HCPCS: 36591; 77295; 77300; 77334; 77387; 77412; 80053; 85025; 85651

== ENCOUNTER 2023-02-07 08:48 | Oncology outpatient (recurring) (ONCR) | payer BC, SELFPAY ==
--- NOTE | 2023-01-20 09:31 | ONCRAD TMN_ITS ---
Radiation Oncology Treatment Management Note Patient Name: Chrissy Schmid Date of : 1970 Date of Service: 01/20/2023 Attending Physician: Jacob Chambers M.D. Chrissy Schmid is a 52 year-old white female diagnosed with a pathological stage yIIA (T1cN1a) corresponding to her disease. The initial clinical stage was IIA (T1bN1). The patient was evaluated by her primary care physician for a right breast mass. A bilateral diagnostic mammogram ordered on March 25, 2022 described an asymmetry measuring 8 mm in the right breast. Ultrasonography revealed a 4 mm x 8 mm x 4 mm no echoic lesion at the 10 o'clock position within the right breast that was 4 cm from the nipple. Abnormal lymphadenopathy was present in the right axilla. And ultrasound-guided biopsy obtained on April 08, 2022 diagnosed a grade 3 invasive ductal carcinoma at the 10 o'clock position. The lymph node biopsy was positive for malignancy. The Breast Prognostic Profile demonstrated estrogen receptor positivity (85%) and progesterone receptor negativity (less than 1%). HER-2 expression was negative (1+; HER2 ratio 1.2). The Ki???67 was 15%. Neoadjuvant chemotherapy was prescribed consisting of 4 cycles of Adriamycin and cyclophosphamide carboplatin between the dates of May 13, 2022 through June 25, 2022. Subsequent weekly paclitaxel was administered for 12 cycles completing on October 01, 2022. A bilateral mastectomy and right axillary lymph node dissection were performed by Kb Hi M.D. on October 16, 2022. The pathology report confirmed a 1.5 cm poorly differentiated ductal carcinoma within the right mastectomy specimen. A positive surgical margin was noted at the barbie-superior margin. A grade 3 DCIS was present of the solid architectural pattern. A total of 6 lymph nodes were harvested with one harboring metastatic adenocarcinoma. Benign breast tissue was present within the left mastectomy sample. Re-excision was completed on October 28, 2022. The surgical margins were free of malignancy. She has received 12 Gy of a prescribed 50 Gy delivered with a 3D conformal radiotherapy plan utilizing opposed tangential portal armstrong matched to supraclavicular fossa and PAB ports incorporating a field-in- field treatment technique. Upon review of systems, she denied chest wall complaints related to radiotherapy. On physical examination, the patient weighed 250 lbs. Her temperature was 97 ???F and the blood pressure was 143/83 mmHg. Her pulse was 91 bpm and her respiratory rate was 18. There was no erythema within the treatment armstrong of the right chest wall. Continue right chest wall and regional lymph node irradiation as planned. Signed by: Jacob Chambers 01/20/2023 10:01:39 AM
[2023-01-22 09:32] VITALS: BMI 45.8
[2023-01-22 09:52] LABS: Basophils % 0.3 %; Eosinophils # 0.1 10^3/uL (0.0-0.8); Eosinophils % 1.9 %; Hematocrit 31.5 % (37.0-47.0); Hemoglobin 10.2 g/dL (11.5-15.3); Lymphocytes # 1.5 10^3/uL (0.8-4.8); Lymphocytes % 24.2 %; Mean Corpuscular HGB Conc 32.4 g/dL (30.0-36.0); Mean Corpuscular Hemoglobin 28.7 pg (28.0-34.0); Mean Corpuscular Volume 88.7 fl (81-99); Mean Platelet Volume 8.5 fL (7.4-10.4); Monocytes # 0.2 10^3/uL (0.2-0.9); Monocytes % 2.7 %; Neutrophils # 4.45 10^3/uL (1.8-7.7); Neutrophils % 70.3 %; Nucleated Red Blood Cells % 0 %; Platelet Count 329 10^3/cmm (130-400); Red Blood Count 3.55 10^6/uL (4.1-5.3); Red Cell Distribution Width 15.9 % (12.1-15.1); White Blood Count 6.3 10^3/uL (4.0-10.0)
[2023-01-22 10:07] LABS: Alanine Aminotransferase 20 U/L (0-33); Alkaline Phosphatase 72 U/L (35-105); Anion Gap 15.2 (5-19); Aspartate Amino Transferase 20 U/L (0-32); Blood Urea Nitrogen 7 mg/dL (6-20); Calcium 9.2 mg/dL (8.5-10.5); Carbon Dioxide 28 mmol/L (22-29); Chloride 101 mmol/L (98-107); Creatinine Clr Calc Pharmacy 109.5357; Globulin 3.2 g/dL (1.3-4.6); Glomerular Filtration Rate 87.2 mL/min (90-130); Glucose 146 mg/dL (65-115); Osmolality Calculated 291 mOsm/kg (285-295); Potassium 4.2 mmol/L (3.5-5.1); Sodium 140 mmol/L (136-145); Total Bilirubin 0.2 mg/dL (0.15-1.2); Total Protein 7.2 g/dL (6.6-8.7)
--- NOTE | 2023-01-27 09:39 | ONCRAD TMN_ITS ---
Radiation Oncology Treatment Management Note Patient Name: Chrissy Schmid Date of : 1970 Date of Service: 01/27/2023 Attending Physician: Jacob Chambers M.D. Chrissy Schmid is a 52 year-old white female diagnosed with a pathological stage yIIA (T1cN1a) corresponding to her disease. The initial clinical stage was IIA (T1bN1). The patient was evaluated by her primary care physician for a right breast mass. A bilateral diagnostic mammogram ordered on March 25, 2022 described an asymmetry measuring 8 mm in the right breast. Ultrasonography revealed a 4 mm x 8 mm x 4 mm no echoic lesion at the 10 o'clock position within the right breast that was 4 cm from the nipple. Abnormal lymphadenopathy was present in the right axilla. And ultrasound-guided biopsy obtained on April 08, 2022 diagnosed a grade 3 invasive ductal carcinoma at the 10 o'clock position. The lymph node biopsy was positive for malignancy. The Breast Prognostic Profile demonstrated estrogen receptor positivity (85%) and progesterone receptor negativity (less than 1%). HER-2 expression was negative (1+; HER2 ratio 1.2). The Ki???67 was 15%. Neoadjuvant chemotherapy was prescribed consisting of 4 cycles of Adriamycin and cyclophosphamide carboplatin between the dates of May 13, 2022 through June 25, 2022. Subsequent weekly paclitaxel was administered for 12 cycles completing on October 01, 2022. A bilateral mastectomy and right axillary lymph node dissection were performed by Kb Hi M.D. on October 16, 2022. The pathology report confirmed a 1.5 cm poorly differentiated ductal carcinoma within the right mastectomy specimen. A positive surgical margin was noted at the barbie-superior margin. A grade 3 DCIS was present of the solid architectural pattern. A total of 6 lymph nodes were harvested with one harboring metastatic adenocarcinoma. Benign breast tissue was present within the left mastectomy sample. Re-excision was completed on October 28, 2022. The surgical margins were free of malignancy. She has received 22 Gy of a prescribed 50 Gy delivered with a 3D conformal radiotherapy plan utilizing opposed tangential portal armstrong matched to supraclavicular fossa and PAB ports incorporating a field-in- field treatment technique. Upon review of systems, she denied chest wall skin complaints. On physical examination, the patient weighed 249 lbs. Her temperature was 96.7 ???F and the blood pressure was 126/80 mmHg. Her pulse was 79 bpm and her respiratory rate was 16. There was no erythema within the treatment armstrong of the right chest wall. Continue right chest wall and regional lymph node irradiation as prescribed. Signed by: Jacob Chambers 01/27/2023 9:38:27 AM
[2023-01-30 08:27] LABS: Basophils % 0.7 %; Eosinophils # 0.1 10^3/uL (0.0-0.8); Eosinophils % 2.1 %; Hematocrit 31.5 % (37.0-47.0); Hemoglobin 10.2 g/dL (11.5-15.3); Lymphocytes # 1.6 10^3/uL (0.8-4.8); Lymphocytes % 37.5 %; Mean Corpuscular HGB Conc 32.4 g/dL (30.0-36.0); Mean Corpuscular Hemoglobin 28.4 pg (28.0-34.0); Mean Corpuscular Volume 87.7 fl (81-99); Mean Platelet Volume 8.3 fL (7.4-10.4); Monocytes # 0.3 10^3/uL (0.2-0.9); Monocytes % 6.3 %; Neutrophils # 2.28 10^3/uL (1.8-7.7); Neutrophils % 53.2 %; Nucleated Red Blood Cells % 0 %; Platelet Count 221 10^3/cmm (130-400); Red Blood Count 3.59 10^6/uL (4.1-5.3); Red Cell Distribution Width 16.5 % (12.1-15.1); White Blood Count 4.3 10^3/uL (4.0-10.0)
[2023-01-30 08:54] LABS: Alanine Aminotransferase 16 U/L (0-33); Albumin Level 3.8 g/dL (3.5-5.2); Alkaline Phosphatase 61 U/L (35-105); Anion Gap 14.8 (5-19); Aspartate Amino Transferase 20 U/L (0-32); Blood Urea Nitrogen 9 mg/dL (6-20); Calcium 9.2 mg/dL (8.5-10.5); Carbon Dioxide 28 mmol/L (22-29); Chloride 102 mmol/L (98-107); Globulin 3.3 g/dL (1.3-4.6); Glomerular Filtration Rate 74.7 mL/min (90-130); Glucose 117 mg/dL (65-115); Osmolality Calculated 292 mOsm/kg (285-295); Potassium 3.8 mmol/L (3.5-5.1); Sodium 141 mmol/L (136-145); Total Bilirubin 0.2 mg/dL (0.15-1.2); Total Protein 7.1 g/dL (6.6-8.7)
--- NOTE | 2023-02-03 09:26 | ONCRAD TMN_ITS ---
Radiation Oncology Treatment Management Note Patient Name: Chrissy Schmid Date of : 1970 Date of Service: 02/03/2023 Attending Physician: Jacob Chambers M.D. Chrissy Schmid is a 52 year-old white female diagnosed with a pathological stage yIIA (T1cN1a) corresponding to her disease. The initial clinical stage was IIA (T1bN1). The patient was evaluated by her primary care physician for a right breast mass. A bilateral diagnostic mammogram ordered on March 25, 2022 described an asymmetry measuring 8 mm in the right breast. Ultrasonography revealed a 4 mm x 8 mm x 4 mm no echoic lesion at the 10 o'clock position within the right breast that was 4 cm from the nipple. Abnormal lymphadenopathy was present in the right axilla. And ultrasound-guided biopsy obtained on April 08, 2022 diagnosed a grade 3 invasive ductal carcinoma at the 10 o'clock position. The lymph node biopsy was positive for malignancy. The Breast Prognostic Profile demonstrated estrogen receptor positivity (85%) and progesterone receptor negativity (less than 1%). HER-2 expression was negative (1+; HER2 ratio 1.2). The Ki???67 was 15%. Neoadjuvant chemotherapy was prescribed consisting of 4 cycles of Adriamycin and cyclophosphamide carboplatin between the dates of May 13, 2022 through June 25, 2022. Subsequent weekly paclitaxel was administered for 12 cycles completing on October 01, 2022. A bilateral mastectomy and right axillary lymph node dissection were performed by Kb Hi M.D. on October 16, 2022. The pathology report confirmed a 1.5 cm poorly differentiated ductal carcinoma within the right mastectomy specimen. A positive surgical margin was noted at the barbie-superior margin. A grade 3 DCIS was present of the solid architectural pattern. A total of 6 lymph nodes were harvested with one harboring metastatic adenocarcinoma. Benign breast tissue was present within the left mastectomy sample. Re-excision was completed on October 28, 2022. The surgical margins were free of malignancy. She has received 32 Gy of a prescribed 50 Gy delivered with a 3D conformal radiotherapy plan utilizing opposed tangential portal armstrong matched to supraclavicular fossa and PAB ports incorporating a field-in- field treatment technique. Upon review of systems, she denied skin complaints. On physical examination, the patient weighed 250 lbs. Her temperature was 96.8 ???F and the blood pressure was 121/73 mmHg. Her pulse was 87 bpm and her respiratory rate was 18. There was minimal erythema within the treatment armstrong of the right chest wall. Continue right chest wall and regional lymph node irradiation as planned. Signed by: Jacob Chambers 02/03/2023 9:25:21 AM
== END 2023-02-16 23:59 | disposition home or self-care (01) ==
PROVIDERS: Nurse Practitioner; PCP Family Medicine; Visit Provider Internal Medicine Medical Oncology
DX: Z51.0 Encounter for antineoplastic radiation therapy (principal); C50.411 Malignant neoplasm of upper-outer quadrant of right female breast; Z17.0 Estrogen receptor positive status [ER+]; C77.3 Secondary and unspecified malignant neoplasm of axilla and upper limb lymph nodes; Z90.13 Acquired absence of bilateral breasts and nipples
CPT/HCPCS: 36591; 77336; 77387; 77412; 80053; 85025

== ENCOUNTER 2023-03-14 08:49 | Oncology outpatient (recurring) (ONCR) | payer BC, SELFPAY ==
--- NOTE | 2023-02-17 09:09 | ONCRAD TMN_ITS ---
Radiation Oncology Treatment Management Note Patient Name: Chrissy Schmid Date of : 1970 Date of Service: 02/17/2023 Attending Physician: Jacob Chambers M.D. Chrissy Schmid is a 52 year-old white female diagnosed with a pathological stage yIIA (T1cN1a) corresponding to her disease. The initial clinical stage was IIA (T1bN1). The patient was evaluated by her primary care physician for a right breast mass. A bilateral diagnostic mammogram ordered on March 25, 2022 described an asymmetry measuring 8 mm in the right breast. Ultrasonography revealed a 4 mm x 8 mm x 4 mm no echoic lesion at the 10 o'clock position within the right breast that was 4 cm from the nipple. Abnormal lymphadenopathy was present in the right axilla. And ultrasound-guided biopsy obtained on April 08, 2022 diagnosed a grade 3 invasive ductal carcinoma at the 10 o'clock position. The lymph node biopsy was positive for malignancy. The Breast Prognostic Profile demonstrated estrogen receptor positivity (85%) and progesterone receptor negativity (less than 1%). HER-2 expression was negative (1+; HER2 ratio 1.2). The Ki???67 was 15%. Neoadjuvant chemotherapy was prescribed consisting of 4 cycles of Adriamycin and cyclophosphamide carboplatin between the dates of May 13, 2022 through June 25, 2022. Subsequent weekly paclitaxel was administered for 12 cycles completing on October 01, 2022. A bilateral mastectomy and right axillary lymph node dissection were performed by Kb Hi M.D. on October 16, 2022. The pathology report confirmed a 1.5 cm poorly differentiated ductal carcinoma within the right mastectomy specimen. A positive surgical margin was noted at the barbie-superior margin. A grade 3 DCIS was present of the solid architectural pattern. A total of 6 lymph nodes were harvested with one harboring metastatic adenocarcinoma. Benign breast tissue was present within the left mastectomy sample. Re-excision was completed on October 28, 2022. The surgical margins were free of malignancy. She has received 40 Gy of a prescribed 50 Gy delivered with a 3D conformal radiotherapy plan utilizing opposed tangential portal armstrong matched to supraclavicular fossa and PAB ports incorporating a field-in- field treatment technique. Upon review of systems, she reported continued skin rash. On physical examination, the patient weighed 250 lbs. Her temperature was 96.8 ???F and the blood pressure was 121/73 mmHg. Her pulse was 87 bpm and her respiratory rate was 18. There was a grade III erythema within the treatment armstrong of the right axilla. Post-pone right chest wall and regional lymph node irradiation as prescribed. Signed by: Jacob Chambers 02/17/2023 9:07:26 AM
[2023-02-17 09:33] VITALS: RESP 20
[2023-02-17] MEDS: oxyCODONE 5 mg IR Tab/Cap 10 MG PO (09:33)
[2023-02-17 09:56] LABS: Basophils % 0.8 %; Eosinophils # 0.1 10^3/uL (0.0-0.8); Hematocrit 29.5 % (37.0-47.0); Hemoglobin 9.6 g/dL (11.5-15.3); Lymphocytes # 0.8 10^3/uL (0.8-4.8); Lymphocytes % 17.4 %; Mean Corpuscular HGB Conc 32.5 g/dL (30.0-36.0); Mean Corpuscular Hemoglobin 29.1 pg (28.0-34.0); Mean Corpuscular Volume 89.4 fl (81-99); Mean Platelet Volume 8.3 fL (7.4-10.4); Monocytes # 0.2 10^3/uL (0.2-0.9); Monocytes % 4.1 %; Neutrophils # 3.68 10^3/uL (1.8-7.7); Neutrophils % 76.5 %; Nucleated Red Blood Cells % 0 %; Platelet Count 276 10^3/cmm (130-400); Red Cell Distribution Width 18.3 % (12.1-15.1); White Blood Count 4.8 10^3/uL (4.0-10.0)
[2023-02-17 10:11] LABS: Alanine Aminotransferase 58 U/L (0-33); Albumin Level 3.9 g/dL (3.5-5.2); Alkaline Phosphatase 65 U/L (35-105); Anion Gap 14.9 (5-19); Aspartate Amino Transferase 52 U/L (0-32); Blood Urea Nitrogen 8 mg/dL (6-20); Calcium 8.9 mg/dL (8.5-10.5); Carbon Dioxide 27 mmol/L (22-29); Chloride 96 mmol/L (98-107); Globulin 2.9 g/dL (1.3-4.6); Glomerular Filtration Rate 87.2 mL/min (90-130); Glucose 147 mg/dL (65-115); Osmolality Calculated 279 mOsm/kg (285-295); Potassium 3.9 mmol/L (3.5-5.1); Sodium 134 mmol/L (136-145); Total Bilirubin 0.2 mg/dL (0.15-1.2); Total Protein 6.8 g/dL (6.6-8.7)
[2023-02-25 09:32] VITALS: BP 131/84; PULSE 88; RESP 16; TEMP 36.8; O2SAT 94
[2023-02-25 10:01] LABS: Basophils # 0.1 10^3/uL (0.0-0.1); Eosinophils # 0.1 10^3/uL (0.0-0.8); Eosinophils % 1.2 %; Hematocrit 29.4 % (37.0-47.0); Hemoglobin 9.7 g/dL (11.5-15.3); Lymphocytes # 0.9 10^3/uL (0.8-4.8); Lymphocytes % 15.3 %; Mean Corpuscular Hemoglobin 29.9 pg (28.0-34.0); Mean Corpuscular Volume 90.7 fl (81-99); Mean Platelet Volume 8.3 fL (7.4-10.4); Monocytes # 0.3 10^3/uL (0.2-0.9); Neutrophils # 4.42 10^3/uL (1.8-7.7); Nucleated Red Blood Cells % 0 %; Platelet Count 274 10^3/cmm (130-400); Red Blood Count 3.24 10^6/uL (4.1-5.3); Red Cell Distribution Width 19.8 % (12.1-15.1); White Blood Count 5.8 10^3/uL (4.0-10.0)
[2023-02-25] MEDS: sodium chloride 0.9% 1,000 ML 999 ML IV (10:03)
[2023-02-25] MEDS: ondansetron 2 mg/ML SDV 2 mL 8 MG IVP (10:05)
[2023-02-25 10:17] LABS: Alanine Aminotransferase 188 U/L (0-33); Alkaline Phosphatase 102 U/L (35-105); Aspartate Amino Transferase 132 U/L (0-32); Blood Urea Nitrogen 6 mg/dL (6-20); Calcium 8.9 mg/dL (8.5-10.5); Carbon Dioxide 28 mmol/L (22-29); Chloride 101 mmol/L (98-107); Glomerular Filtration Rate 87.2 mL/min (90-130); Glucose 131 mg/dL (65-115); Osmolality Calculated 291 mOsm/kg (285-295); Sodium 141 mmol/L (136-145); Total Bilirubin 0.3 mg/dL (0.15-1.2)
--- NOTE | 2023-03-04 09:24 | ONCRAD TMN_ITS ---
Radiation Oncology Treatment Management Note Patient Name: Chrissy Schmid Date of : 1970 Date of Service: 03/04/2023 Attending Physician: Jacob Chambers M.D. Chrissy Schmid is a 52 year-old white female diagnosed with a pathological stage yIIA (T1cN1a) corresponding to her disease. The initial clinical stage was IIA (T1bN1). The patient was evaluated by her primary care physician for a right breast mass. A bilateral diagnostic mammogram ordered on March 25, 2022 described an asymmetry measuring 8 mm in the right breast. Ultrasonography revealed a 4 mm x 8 mm x 4 mm no echoic lesion at the 10 o'clock position within the right breast that was 4 cm from the nipple. Abnormal lymphadenopathy was present in the right axilla. And ultrasound-guided biopsy obtained on April 08, 2022 diagnosed a grade 3 invasive ductal carcinoma at the 10 o'clock position. The lymph node biopsy was positive for malignancy. The Breast Prognostic Profile demonstrated estrogen receptor positivity (85%) and progesterone receptor negativity (less than 1%). HER-2 expression was negative (1+; HER2 ratio 1.2). The Ki???67 was 15%. Neoadjuvant chemotherapy was prescribed consisting of 4 cycles of Adriamycin and cyclophosphamide carboplatin between the dates of May 13, 2022 through June 25, 2022. Subsequent weekly paclitaxel was administered for 12 cycles completing on October 01, 2022. A bilateral mastectomy and right axillary lymph node dissection were performed by Kb Hi M.D. on October 16, 2022. The pathology report confirmed a 1.5 cm poorly differentiated ductal carcinoma within the right mastectomy specimen. A positive surgical margin was noted at the barbie-superior margin. A grade 3 DCIS was present of the solid architectural pattern. A total of 6 lymph nodes were harvested with one harboring metastatic adenocarcinoma. Benign breast tissue was present within the left mastectomy sample. Re-excision was completed on October 28, 2022. The surgical margins were free of malignancy. She has received 40 Gy of a prescribed 50 Gy delivered with a 3D conformal radiotherapy plan utilizing opposed tangential portal armstrong matched to supraclavicular fossa and PAB ports incorporating a field-in- field treatment technique. Upon review of systems, she continues to report a skin rash. On physical examination, the patient weighed 251 lbs. Her temperature was 97.4 ???F and the blood pressure was 140/87 mmHg. Her pulse was 98 bpm and her respiratory rate was 18. There was a grade II erythema within the treatment armstrong of the right chest wall. Continue to delay right chest wall and regional lymph node irradiation. Signed by: Jacob Chambers 03/04/2023 9:24:48 AM
--- NOTE | 2023-03-10 12:41 | ONCRAD TMN_ITS ---
Radiation Oncology Weekly Treatment Management Patient: Binu Lowe MR#: [id number] : 1970 Attending Physician: Cayden Thayer M.D. Date of Service: 03/10/2023 Referring Physician(s) : Gigi Schmidt M.D. Diagnosis: C50.411 - Malignant neoplasm of upper-outer quadrant of right female breast, Diagnosed 04/08/2022 (Active) Stage IIA, T1c, pN1a, M0, G3, HER2 Neg, ER Pos, [facility] Radiotherapy to date: Course: PMRT 2022, Treatment Site: PMRT ??? Rt, Ref. ID: [id number], Energy: 15X, Dose/Fx (cGy): 200, #Fx: / 25, Dose Correction (cGy): 0, Total Dose (cGy): 4,000, Start Date: 01/13/2023, End Date: 02/07/2023, Elapsed Days: 25 Course: PMRT 2022, Treatment Site: Supraclavicular Fossa ??? Rt, Ref. ID: PTV R SC + n, Energy: 15X, Dose/Fx (cGy): 200, #Fx: / 25, Dose Correction (cGy): 0, Total Dose (cGy): 4,000, Start Date: 01/13/2023, End Date: 02/07/2023, Elapsed Days: 25 Reason for visit: The patient is being seen today as part of their regularly scheduled weekly on treatment visits to assess for acute toxicities from radiotherapy. Review of Systems: Skin healing well after treatment break. Still had a lot of fatigue. Generalized arthritic joint pain is chronic and worse with oral chemo. Using oral analgesics and topical diclofenac. Vital Signs: Performed on 03/10/2023 9:10 AM BMI - 44.817 kg/m2 (high), Height - 63 in, Weight - 253 lbs, Temperature - 96.9 f, Pulse - 88 /min, Respiration - 18 /min, O2 Sat - 94 % (low), Pain - 0, Fatigue - 8 and BP - 116/ 73 mm(hg). Physical Exam: right chest wall erythema with dry desquamation of asencio skin. No moist desquamation seen. Imaging: Radiation therapy imaging related to accurate target localization (i.e. KV, MV and CBCT) was reviewed. Appropriate changes, if any, were made to ensure treatment accuracy. Plan: Good recovery of acute toxicity. Resumes treatment today with resumption of bolus. Signed by: Cayden Thayer 03/10/2023 12:39:38 PM
== END 2023-03-19 23:59 | disposition home or self-care (01) ==
PROVIDERS: Nurse Practitioner; PCP Family Medicine; Visit Provider Internal Medicine Medical Oncology
DX: Z51.0 Encounter for antineoplastic radiation therapy (principal); C50.411 Malignant neoplasm of upper-outer quadrant of right female breast; Z17.0 Estrogen receptor positive status [ER+]; C77.3 Secondary and unspecified malignant neoplasm of axilla and upper limb lymph nodes; L59.8 Other specified disorders of the skin and subcutaneous tissue related to radiation; Z79.899 Other long term (current) drug therapy; Z90.13 Acquired absence of bilateral breasts and nipples
CPT/HCPCS: 77336; 77387; 77412; 80053; 85025; 96365; 96375; J1100; J1642; J2405; J7030

== ENCOUNTER 2023-04-14 08:30 | Oncology outpatient (recurring) (ONCR) | payer BC, SELFPAY ==
[2023-03-20 12:31] VITALS: BP 130/83; PULSE 95; RESP 18; TEMP 36.4; O2SAT 95
[2023-03-20 12:54] LABS: Basophils # 0.1 10^3/uL (0.0-0.1); Basophils % 0.8 %; Eosinophils # 0.2 10^3/uL (0.0-0.8); Eosinophils % 1.5 %; Hematocrit 31.3 % (37.0-47.0); Hemoglobin 10.2 g/dL (11.5-15.3); Lymphocytes # 1.1 10^3/uL (0.8-4.8); Lymphocytes % 10.6 %; Mean Corpuscular HGB Conc 32.6 g/dL (30.0-36.0); Mean Corpuscular Hemoglobin 30.6 pg (28.0-34.0); Mean Platelet Volume 8.9 fL (7.4-10.4); Monocytes # 0.7 10^3/uL (0.2-0.9); Monocytes % 6.6 %; Neutrophils # 7.58 10^3/uL (1.8-7.7); Neutrophils % 76.6 %; Nucleated Red Blood Cells % 0.2 %; Platelet Count 332 10^3/cmm (130-400); Red Blood Count 3.33 10^6/uL (4.1-5.3); Red Cell Distribution Width 19.2 % (12.1-15.1); White Blood Count 9.9 10^3/uL (4.0-10.0)
[2023-03-20 13:12] LABS: Alanine Aminotransferase 27 U/L (0-33); Alkaline Phosphatase 72 U/L (35-105); Anion Gap 14.2 (5-19); Aspartate Amino Transferase 27 U/L (0-32); Blood Urea Nitrogen 6 mg/dL (6-20); Calcium 8.5 mg/dL (8.5-10.5); Carbon Dioxide 27 mmol/L (22-29); Chloride 100 mmol/L (98-107); Globulin 2.9 g/dL (1.3-4.6); Glomerular Filtration Rate 128.6 mL/min (90-130); Glucose 187 mg/dL (65-115); Osmolality Calculated 287 mOsm/kg (285-295); Potassium 4.2 mmol/L (3.5-5.1); Sodium 137 mmol/L (136-145); Total Bilirubin 0.2 mg/dL (0.15-1.2); Total Protein 6.9 g/dL (6.6-8.7)
[2023-04-03 13:29] VITALS: BP 118/76; PULSE 85; RESP 18; TEMP 36.4; O2SAT 96
[2023-04-03 13:53] LABS: Hematocrit 30.3 % (37.0-47.0); Hemoglobin 9.8 g/dL (11.5-15.3); Mean Corpuscular HGB Conc 32.3 g/dL (30.0-36.0); Mean Corpuscular Hemoglobin 31.5 pg (28.0-34.0); Mean Corpuscular Volume 97.4 fl (81-99); Mean Platelet Volume 8.2 fL (7.4-10.4); Platelet Count 265 10^3/cmm (130-400); Red Blood Count 3.11 10^6/uL (4.1-5.3); Red Cell Distribution Width 16.9 % (12.1-15.1); White Blood Count 4.3 10^3/uL (4.0-10.0)
[2023-04-03 14:22] LABS: Alanine Aminotransferase 117 U/L (0-33); Albumin Level 4.1 g/dL (3.5-5.2); Alkaline Phosphatase 72 U/L (35-105); Aspartate Amino Transferase 68 U/L (0-32); Blood Urea Nitrogen 8 mg/dL (6-20); Carbon Dioxide 25 mmol/L (22-29); Chloride 101 mmol/L (98-107); Glomerular Filtration Rate 87.2 mL/min (90-130); Glucose 109 mg/dL (65-115); Osmolality Calculated 285 mOsm/kg (285-295); Sodium 138 mmol/L (136-145); Total Bilirubin 0.3 mg/dL (0.15-1.2); Total Protein 7.1 g/dL (6.6-8.7)
[2023-04-03 14:50] LABS: Absolute Eosinophils 0.2 10^3/cmm (0.0-0.7); Absolute Neutrophil 3.2 10^3/cmm (1.4-6.5); Absolute Segmented Neutrophil 3.2 10/cmm (1.6-7.1); Eosinophils 5 %; Lymphocytes 18 %; Lymphocytes Absolute 0.8 10^3/cmm (1.2-3.4); Monocytes Absolute 0.1 10^3/cmm (0.1-0.6); Platelet Estimate Normal (Normal); Segmented Neutrophils 74 %; Total Cells Counted 100 (0-100)
[2023-04-14 08:24] VITALS: BP 125/74; PULSE 95; RESP 18; TEMP 36.3; O2SAT 96
[2023-04-14 08:44] LABS: Basophils % 0.7 %; Eosinophils # 0.1 10^3/uL (0.0-0.8); Eosinophils % 2.3 %; Hematocrit 27.8 % (37.0-47.0); Hemoglobin 9.2 g/dL (11.5-15.3); Lymphocytes # 1.4 10^3/uL (0.8-4.8); Lymphocytes % 33.3 %; Mean Corpuscular HGB Conc 33.1 g/dL (30.0-36.0); Mean Corpuscular Hemoglobin 32.6 pg (28.0-34.0); Mean Corpuscular Volume 98.6 fl (81-99); Mean Platelet Volume 8.4 fL (7.4-10.4); Monocytes # 0.3 10^3/uL (0.2-0.9); Monocytes % 7.4 %; Neutrophils # 2.41 10^3/uL (1.8-7.7); Neutrophils % 56.1 %; Nucleated Red Blood Cells % 0 %; Platelet Count 235 10^3/cmm (130-400); Red Blood Count 2.82 10^6/uL (4.1-5.3); Red Cell Distribution Width 16.4 % (12.1-15.1); White Blood Count 4.3 10^3/uL (4.0-10.0)
[2023-04-14 08:56] LABS: Alanine Aminotransferase 38 U/L (0-33); Albumin Level 3.9 g/dL (3.5-5.2); Alkaline Phosphatase 69 U/L (35-105); Anion Gap 13.7 (5-19); Aspartate Amino Transferase 41 U/L (0-32); Blood Urea Nitrogen 5 mg/dL (6-20); Calcium 8.6 mg/dL (8.5-10.5); Carbon Dioxide 29 mmol/L (22-29); Chloride 102 mmol/L (98-107); Globulin 2.9 g/dL (1.3-4.6); Glomerular Filtration Rate 104.2 mL/min (90-130); Glucose 139 mg/dL (65-115); Osmolality Calculated 292 mOsm/kg (285-295); Potassium 3.7 mmol/L (3.5-5.1); Sodium 141 mmol/L (136-145); Total Bilirubin 0.3 mg/dL (0.15-1.2); Total Protein 6.8 g/dL (6.6-8.7)
== END 2023-04-18 23:59 | disposition home or self-care (01) ==
PROVIDERS: Internal Medicine Medical Oncology; PCP Family Medicine; Visit Provider Internal Medicine Medical Oncology
DX: C50.411 Malignant neoplasm of upper-outer quadrant of right female breast (principal)
CPT/HCPCS: 36591; 80053; 85007; 85025; J1642

== ENCOUNTER 2023-05-06 09:12 | Oncology outpatient (recurring) (ONCR) | payer BC, SELFPAY | END 2023-05-19 23:59 | disposition home or self-care (01) | PROVIDERS: PCP Family Medicine; Visit Provider Internal Medicine Medical Oncology | DX: Z53.9 Procedure and treatment not carried out, unspecified reason; Z51.0 Encounter for antineoplastic radiation therapy; C50.411 Malignant neoplasm of upper-outer quadrant of right female breast ==

== ENCOUNTER 2023-05-29 08:33 | Oncology outpatient (recurring) (ONCR) | payer BC, SELFPAY ==
[2023-05-29 08:44] VITALS: BP 143/79; PULSE 90; RESP 18; TEMP 36.4; O2SAT 98
[2023-05-29 08:58] LABS: Basophils # 0.1 10^3/uL (0.0-0.1); Basophils % 0.7 %; Eosinophils # 0.4 10^3/uL (0.0-0.8); Eosinophils % 4.6 %; Hematocrit 32.2 % (37.0-47.0); Hemoglobin 10.5 g/dL (11.5-15.3); Lymphocytes # 1.6 10^3/uL (0.8-4.8); Lymphocytes % 20.7 %; Mean Corpuscular HGB Conc 32.6 g/dL (30.0-36.0); Mean Corpuscular Hemoglobin 31.9 pg (28.0-34.0); Mean Corpuscular Volume 97.9 fl (81-99); Mean Platelet Volume 8.7 fL (7.4-10.4); Monocytes # 0.6 10^3/uL (0.2-0.9); Monocytes % 7.7 %; Neutrophils # 4.93 10^3/uL (1.8-7.7); Neutrophils % 65.1 %; Nucleated Red Blood Cells % 0 %; Platelet Count 273 10^3/cmm (130-400); Red Blood Count 3.29 10^6/uL (4.1-5.3); Red Cell Distribution Width 14.1 % (12.1-15.1); White Blood Count 7.6 10^3/uL (4.0-10.0)
[2023-05-29 09:12] LABS: Alanine Aminotransferase 16 U/L (0-33); Albumin Level 3.9 g/dL (3.5-5.2); Alkaline Phosphatase 63 U/L (35-105); Anion Gap 12.8 (5-19); Aspartate Amino Transferase 23 U/L (0-32); Blood Urea Nitrogen 7 mg/dL (6-20); Calcium 8.6 mg/dL (8.5-10.5); Carbon Dioxide 28 mmol/L (22-29); Chloride 103 mmol/L (98-107); Globulin 2.9 g/dL (1.3-4.6); Glomerular Filtration Rate 166.3 mL/min (90-130); Glucose 142 mg/dL (65-115); Osmolality Calculated 290 mOsm/kg (285-295); Potassium 3.8 mmol/L (3.5-5.1); Sodium 140 mmol/L (136-145); Total Bilirubin 0.2 mg/dL (0.15-1.2); Total Protein 6.8 g/dL (6.6-8.7)
== END 2023-06-19 23:59 | disposition home or self-care (01) ==
PROVIDERS: PCP Family Medicine; Visit Provider Internal Medicine Medical Oncology
DX: Z45.2 Encounter for adjustment and management of vascular access device (principal)
CPT/HCPCS: 36591; 80053; 85025; J1642

== ENCOUNTER 2023-06-19 12:27 | Outpatient (RCR) | payer BC, SELFPAY | END 2023-06-19 23:59 | disposition home or self-care (01) | LOC: SPT 12:27 | PROVIDERS: Visit Provider Internal Medicine Medical Oncology | DX: I97.2 Postmastectomy lymphedema syndrome (principal) | CPT/HCPCS: 97161 ==

== ENCOUNTER 2023-06-20 06:00 | Outpatient (RCR) | payer BC, SELFPAY | END 2023-07-19 23:59 | disposition home or self-care (01) | LOC: SPT 06:00 | PROVIDERS: PCP Family Medicine; Visit Provider Internal Medicine Medical Oncology | DX: I97.2 Postmastectomy lymphedema syndrome (principal) | CPT/HCPCS: 97140 ==

== ENCOUNTER 2023-07-15 08:07 | Oncology outpatient (recurring) (ONCR) | payer BC, SELFPAY ==
[2023-06-26 10:13] VITALS: BP 161/81; PULSE 77; RESP 18; TEMP 36.2; O2SAT 97; BMI 47.0
[2023-06-26 10:38] LABS: Basophils # 0.1 10^3/uL (0.0-0.1); Eosinophils # 0.1 10^3/uL (0.0-0.8); Eosinophils % 1.2 %; Hematocrit 30.3 % (36-47); Lymphocytes # 1.2 10^3/uL (0.8-4.8); Lymphocytes % 24.8 %; Mean Corpuscular HGB Conc 33.7 g/dL (30-55); Mean Corpuscular Hemoglobin 31.9 pg (27-33); Mean Corpuscular Volume 94.7 fl (85-98); Mean Platelet Volume 8.3 fL (7.4-10.4); Monocytes # 0.3 10^3/uL (0.2-0.9); Monocytes % 5.2 %; Neutrophils # 3.33 10^3/uL (1.8-7.7); Neutrophils % 67.2 %; Nucleated Red Blood Cells % 0 %; Platelet Count 248 10^3/cmm (157-399); Red Cell Distribution Width 14.8 % (12.1-15.1); White Blood Count 4.96 10^3/uL (3.29-11.43)
[2023-06-26 11:01] LABS: Alanine Aminotransferase 26 U/L (0-33); Alkaline Phosphatase 71 U/L (35-105); Anion Gap 13.2 (5-19); Aspartate Amino Transferase 30 U/L (0-32); Blood Urea Nitrogen 8 mg/dL (6-20); Calcium 9.1 mg/dL (8.5-10.5); Carbon Dioxide 29 mmol/L (22-29); Chloride 99 mmol/L (98-107); Globulin 3.4 g/dL (1.3-4.6); Glomerular Filtration Rate 87.2 mL/min (90-130); Glucose 138 mg/dL (65-115); Osmolality Calculated 285 mOsm/kg (285-295); Potassium 4.2 mmol/L (3.5-5.1); Sodium 137 mmol/L (136-145); Total Bilirubin 0.2 mg/dL (0.15-1.2); Total Protein 7.4 g/dL (6.6-8.7)
[2023-07-15 08:11] VITALS: BP 100/61; PULSE 62; RESP 16; TEMP 36.3; O2SAT 97
[2023-07-15 08:17] LABS: Basophils # 0.1 10^3/uL (0.0-0.1); Basophils % 1.1 %; Eosinophils # 0.1 10^3/uL (0.0-0.8); Eosinophils % 1.3 %; Hematocrit 31.7 % (36-47); Lymphocytes # 1.4 10^3/uL (0.8-4.8); Lymphocytes % 22.8 %; Mean Corpuscular HGB Conc 33.8 g/dL (30-55); Mean Corpuscular Volume 94.9 fl (85-98); Mean Platelet Volume 8.3 fL (7.4-10.4); Monocytes # 0.4 10^3/uL (0.2-0.9); Monocytes % 6.1 %; Neutrophils # 4.15 10^3/uL (1.8-7.7); Neutrophils % 68.2 %; Nucleated Red Blood Cells % 0 %; Platelet Count 298 10^3/cmm (157-399); Red Blood Count 3.34 10^6/uL (3.85-5.65); Red Cell Distribution Width 15.6 % (12.1-15.1); White Blood Count 6.09 10^3/uL (3.29-11.43)
[2023-07-15 08:42] LABS: Alanine Aminotransferase 17 U/L (0-33); Albumin Level 4.1 g/dL (3.5-5.2); Alkaline Phosphatase 70 U/L (35-105); Anion Gap 13.7 (5-19); Aspartate Amino Transferase 23 U/L (0-32); Blood Urea Nitrogen 8 mg/dL (6-20); Calcium 9.1 mg/dL (8.5-10.5); Carbon Dioxide 28 mmol/L (22-29); Chloride 100 mmol/L (98-107); Globulin 3.3 g/dL (1.3-4.6); Glomerular Filtration Rate 87.2 mL/min (90-130); Glucose 134 mg/dL (65-115); Osmolality Calculated 286 mOsm/kg (285-295); Potassium 3.7 mmol/L (3.5-5.1); Sodium 138 mmol/L (136-145); Total Bilirubin 0.3 mg/dL (0.15-1.2); Total Protein 7.4 g/dL (6.6-8.7)
== END 2023-07-19 23:59 | disposition home or self-care (01) ==
PROVIDERS: PCP Family Medicine; Visit Provider Internal Medicine Medical Oncology
DX: C50.411 Malignant neoplasm of upper-outer quadrant of right female breast; Z53.9 Procedure and treatment not carried out, unspecified reason
CPT/HCPCS: 36415; 80053; 85025; 85378

== ENCOUNTER 2023-08-21 11:50 | Oncology outpatient (recurring) (ONCR) | payer BC, SELFPAY ==
[2023-08-21 12:25] VITALS: BP 96/54; PULSE 74; RESP 18; TEMP 36.6; O2SAT 98
[2023-08-21 12:47] LABS: Basophils # 0.1 10^3/uL (0.0-0.1); Basophils % 1.1 %; Eosinophils # 0.2 10^3/uL (0.0-0.8); Eosinophils % 2.9 %; Lymphocytes # 1.5 10^3/uL (0.8-4.8); Lymphocytes % 26.4 %; Mean Corpuscular HGB Conc 34.2 g/dL (30-55); Mean Corpuscular Hemoglobin 32.6 pg (27-33); Mean Corpuscular Volume 95.4 fl (85-98); Mean Platelet Volume 8.1 fL (7.4-10.4); Monocytes # 0.3 10^3/uL (0.2-0.9); Monocytes % 6.2 %; Neutrophils # 3.46 10^3/uL (1.8-7.7); Neutrophils % 62.9 %; Nucleated Red Blood Cells % 0 %; Platelet Count 324 10^3/cmm (157-399); Red Blood Count 3.25 10^6/uL (3.85-5.65); Red Cell Distribution Width 15.7 % (12.1-15.1)
[2023-08-21 13:01] LABS: Alanine Aminotransferase 16 U/L (0-33); Albumin Level 4.3 g/dL (3.5-5.2); Alkaline Phosphatase 82 U/L (35-105); Anion Gap 13.4 (5-19); Aspartate Amino Transferase 23 U/L (0-32); Blood Urea Nitrogen 10 mg/dL (6-20); Calcium 9.5 mg/dL (8.5-10.5); Carbon Dioxide 28 mmol/L (22-29); Chloride 98 mmol/L (98-107); Globulin 3.3 g/dL (1.3-4.6); Glomerular Filtration Rate 87.2 mL/min (90-130); Glucose 127 mg/dL (65-115); Osmolality Calculated 283 mOsm/kg (285-295); Potassium 3.4 mmol/L (3.5-5.1); Sodium 136 mmol/L (136-145); Total Bilirubin 0.4 mg/dL (0.15-1.2); Total Protein 7.6 g/dL (6.6-8.7)
== END 2023-09-18 23:59 | disposition home or self-care (01) ==
PROVIDERS: Internal Medicine; PCP Family Medicine; Visit Provider Internal Medicine Medical Oncology
DX: C50.411 Malignant neoplasm of upper-outer quadrant of right female breast (principal); Z45.2 Encounter for adjustment and management of vascular access device; R53.83 Other fatigue; D64.9 Anemia, unspecified; M25.50 Pain in unspecified joint; Z90.13 Acquired absence of bilateral breasts and nipples; Z79.899 Other long term (current) drug therapy
CPT/HCPCS: 36415; 80053; 85025

== ENCOUNTER 2023-09-04 05:48 | Day surgery (SDC) | payer BC, SELFPAY ==
--- NOTE | 2023-09-04 05:53 | P.HP_ITS ---
Same Day Surgery H&P Indication for Procedure/HPI DATE OF PROCEDURE: September 04, 2023 CHIEF COMPLAINT/INDICATIONFOR SURGICAL PROCEDURE: need for screening for colorectal cancer PREOP DIAGNOSIS: need for screening for colorectal cancer PLANNED PROCEDURE: Operation Date: 09/04/23 07:00 Proposed Procedures p colonoscopy 12283,Z12.11(Not Applicable) - Jacob Pepper MD Medications/Allergies* Home Medications Medication Instructions Recorded Confirmed Type multivitamin 1 tab PO QAM 02/28/21 09/02/23 History krill oil 500 mg capsule 1,000 mg PO QAM 04/30/22 09/02/23 History acetaminophen 500 mg tablet 500 mg PO .WITH CHEMO 05/21/22 09/02/23 History diclofenac sodium 1 % topical gel 4 g topical QID PRN Pain 05/21/22 09/02/23 History (Voltaren Arthritis Pain) meclizine 25 mg tablet 25 mg PO BID PRN Dizziness 05/21/22 09/02/23 History polyethylene glycol 3350 17 gram 17 g PO DAILY@12 PRN Constipation 05/21/22 09/02/23 History oral powder packet (Miralax) ascorbic acid 125 mg-collagen, 1 cap PO QAM 06/17/22 09/02/23 History hydrolyzed 740 mg capsule (Collagen Plus Vitamin C) promethazine 25 mg tablet 25 mg PO BID 05/29/23 09/02/23 History abemaciclib 100 mg tablet 100 mg PO BID 09/02/23 09/02/23 History (Verzenio) ondansetron HCl 8 mg tablet 8 mg PO Q8H PRN Nausea 09/02/23 09/02/23 History Allergies/Adverse Reactions Allergy/AdvReac Type Severity Reaction Status Date / Time acetaminophen [From Vicodin] Allergy Intermediate hives Verified 09/02/23 10:54 hydrocodone [From [place]] Allergy ariana Verified 09/02/23 10:54 alot-pt states has adverse reaction levofloxacin [From Levaquin] Allergy ALGY-Rash Verified 09/02/23 10:54 metoclopramide [From Reglan] Allergy ALGY-Anaphy Verified 09/02/23 10:54 laxis Penicillins Allergy ALGY-Rash Verified 09/02/23 10:54 Pertinent History/Comorbid Conditions* Medical History (Updated 06/24/23 @ 10:02 by Jacob Pepper MD) Acute adjustment disorder with anxiety Breast cancer Chronic insomnia Chronic migraine Depression Fibromyalgia Osteoarthritis PTSD (post-traumatic stress disorder) Thrombosis of ovarian vein Vertigo Surgical History (Updated 04/17/23 @ 08:31 by Gigi Schmidt MD) History of appendectomy History of bilateral mastectomy History of hysterectomy for benign disease History of knee surgery Arthroscopic knee surgery x 2 History of laparoscopic cholecystectomy History of tonsillectomy Port-A-Cath in place Family History (Updated 04/30/22 @ 20:02 by Gigi Schmidt MD) Diabetes Father CAD (coronary artery disease) Father Denies family history of Dementia Cancer Social History Smoking and tobacco/nicotine status: never used tobacco/nicotine Second hand smoke exposure: No Alcohol intake: former Substance/Drug Use: never Lives independently: Yes Household members: spouse Marital status: Highest education level completed: Some College, No Degree Current occupational status: unemployed Current gender identity: Female Pertinent Exam Findings alert, oriented x 3 and clear to auscultation bilaterally Recommendations Surgery/Procedure today Coding Level of Care Code Acute Code for Chg Fwd Diagnoses
[2023-09-04 06:11] VITALS: BP 139/82; PULSE 96; RESP 16; TEMP 36.7; O2SAT 97; BMI 45.7
[2023-09-04] MEDS: sodium chloride 0.9% 1,000 ML 30 ML IV (06:11)
--- NOTE | 2023-09-04 06:57 | P.ANESASSM_ITS ---
Pre-Anesthetic Assessment Height/Weight: Height 1.57 m Weight 113.398 kg Temp Pulse Resp BP Pulse Ox O2 Del Method 98.1 F 96 16 139/82 97 Room Air 09/04/23 06:11 09/04/23 06:11 09/04/23 06:11 09/04/23 06:11 09/04/23 06:11 09/04/23 06:11 Preop Diagnosis: need for screening for colorectal cancer Operation Date: 09/04/23 07:00 Proposed Procedures p colonoscopy 42744,Z12.11(Not Applicable) - Jacob Pepper MD Was Beta Catrachito taken within 24 hours: N/A Was Clonidine taken within 24 hours: N/A Last intake: Intake Last Liquid Date 09/03/23 Last Liquid Time 22:00 Last Solid Date 09/02/23 Last Solid Time 20:00 Social No alcohol and No tobacco Exam alert, oriented x 3, clear to auscultation bilaterally and regular rate & rhythm Airway Submandibular: within normal limits Cervical ROM: within normal limits Mallampati: Class II Dentition: full History/ROS No significant history except as noted and No significant complaints Pulmonary None reported CV/HEM None reported None reported Hepatic None reported GI Gastroesophageal Reflux Disease Metabolic Morbid Obesity [facility] [place] None reported Neuropsych Anxiety and Depression Anesthetic Plan ASA status: 2 Anesthesia: Anesthesia Evaluation and MAC Risk of > 500 ml blood loss (7ml/kg in children): No Medications/Allergies Home Medications Medication Instructions Recorded Confirmed Last Taken Type sumatriptan succinate 100 mg tablet See Rx Instructions PO .COMPLEX 12/28/20 09/04/23 09/03/23 Rx #14 tabs multivitamin 1 tab PO QAM 02/28/21 09/04/23 09/03/23 History albuterol sulfate 90 mcg/actuation 2 puff inhalation Q4H PRN 05/29/21 09/04/23 09/03/23 Rx aerosol inhaler (Ventolin HFA) Shortness Of Breath #8 grams krill oil 500 mg capsule 1,000 mg PO QAM 04/30/22 09/04/23 09/03/23 History acetaminophen 500 mg tablet 500 mg PO .WITH CHEMO 05/21/22 09/04/23 09/03/23 History diclofenac sodium 1 % topical gel 4 g topical QID PRN Pain 05/21/22 09/04/23 09/03/23 History (Voltaren Arthritis Pain) meclizine 25 mg tablet 25 mg PO BID PRN Dizziness 05/21/22 09/04/23 09/03/23 History polyethylene glycol 3350 17 gram 17 g PO DAILY@12 PRN Constipation 05/21/22 09/04/23 09/03/23 History oral powder packet (Miralax) hospital bed #1 ea 06/06/22 09/04/23 Unknown Rx ascorbic acid 125 mg-collagen, 1 cap PO QAM 06/17/22 09/04/23 09/03/23 History hydrolyzed 740 mg capsule (Collagen Plus Vitamin C) promethazine 25 mg tablet 25 mg PO BID 05/29/23 09/04/23 09/03/23 History exemestane 25 mg tablet 25 mg PO DAILY #90 tabs 07/15/23 09/04/23 09/03/23 Rx oxycodone 10 mg tablet 10 mg PO QID PRN pain 30 days #120 08/22/23 09/04/23 09/03/23 Rx tabs oxycodone 15 mg tablet,crush 15 mg PO BID 30 days #60 tabs 08/22/23 09/04/23 09/03/23 Rx resistant,extended release 12 hr lorazepam 1 mg tablet 1 mg PO BID PRN anxiety #60 tabs 08/25/23 09/04/23 09/04/23 Rx abemaciclib 100 mg tablet 100 mg PO BID 09/02/23 09/04/23 09/02/23 History (Verzenio) ondansetron HCl 8 mg tablet 8 mg PO Q8H PRN Nausea 09/02/23 09/04/23 09/03/23 History Allergies Allergy/AdvReac Type Severity Reaction Status Date / Time acetaminophen [From Vicodin] Allergy Intermediate hives Verified 09/04/23 06:09 hydrocodone [From [place]] Allergy ariana Verified 09/04/23 06:09 alot-pt states has adverse reaction levofloxacin [From Levaquin] Allergy ALGY-Rash Verified 09/04/23 06:09 metoclopramide [From Reglan] Allergy ALGY-Anaphy Verified 09/04/23 06:09 laxis Penicillins Allergy ALGY-Rash Verified 09/04/23 06:09 Current Medications Generic Name Dose Route Start Last Admin Trade Name Freq PRN Reason Stop Dose Admin Sodium Chloride 1,000 mls @ 30 mls/hr 09/04/23 06:00 09/04/23 06:11 Sodium Chloride 0.9% IV 30 mls/hr .Q24H MAN Administration PFSH Anesthesia Medical History Acute adjustment disorder with anxiety Breast cancer Chronic insomnia Chronic migraine Depression Fibromyalgia Osteoarthritis PTSD (post-traumatic stress disorder) Thrombosis of ovarian vein Vertigo Surgical History History of appendectomy History of bilateral mastectomy History of hysterectomy for benign disease History of knee surgery Arthroscopic knee surgery x 2 History of laparoscopic cholecystectomy History of tonsillectomy Port-A-Cath in place Family History Father Diabetes CAD (coronary artery disease) Denies family history of Dementia Cancer Social History Smoking and tobacco/nicotine status: never used tobacco/nicotine Second hand smoke exposure: No Alcohol intake: former Substance/Drug Use: never Lives independently: Yes Household members: spouse Marital status: Highest education level completed: Some College, No Degree Current occupational status: unemployed Current gender identity: Female Data Anesthesia Cardiac Studies: Echocardiogram 05/09/22
[2023-09-04 07:33] VITALS: BP 139/100; PULSE 96; RESP 20; TEMP 36.6; O2SAT 99
[2023-09-04 07:40] VITALS: BP 142/82; PULSE 82; RESP 20; O2SAT 100
[2023-09-04] MEDS: morphine 4 mg/mL SDV 1 mL IVP (07:45)
[2023-09-04] MEDS: ondansetron 2 mg/ML SDV 2 mL 4 MG IVP (07:47)
[2023-09-04 07:51] VITALS: BP 137/84; PULSE 83; RESP 20; O2SAT 100
[2023-09-04 08:08] VITALS: BP 145/93; PULSE 83; RESP 18; O2SAT 95
[2023-09-04 08:33] VITALS: RESP 18
[2023-09-04] MEDS: HYDROmorphone 1 mg/mL INJ 1 mL 0.5 MG IVP (08:33)
--- NOTE | 2023-09-04 08:45 | ANE.PACU2 ---
Inpatient post-anesthesia follow up: Airway intact: Yes Vital signs: Temperature 97.8 F Pulse Rate 83 Respiratory Rate 18 Blood Pressure 145/93 Pulse Oximetry 95 Oxygen Delivery Me thod Room Air Oxygen Flow Rate 3 Fraction of Inspir ed Oxygen Hydration adequate: Yes Nausea and vomiting: No Pain level: 1 Mental status: Baseline
--- NOTE | 2023-09-04 08:52 | PC.NURSE ---
Dilaudid hand delivered by pharmacy, unable to waste in the pyxis. wasted 0.5mg IV Dilaudid at 0851 witnessed by Vannessa Mai RN.
== END 2023-09-04 08:48 | disposition home or self-care (01) ==
PROVIDERS: PCP Internal Medicine Medical Oncology; Visit Provider Surgery
PROC: 0DJD8ZZ Inspection of Lower Intestinal Tract, Via Natural or Artificial Opening Endoscopic (ICD-10-PCS; CPT 45378; principal; 2023-09-04 07:00)
DX: Z12.11 Encounter for screening for malignant neoplasm of colon (principal); K21.9 Gastro-esophageal reflux disease without esophagitis; E66.01 Morbid (severe) obesity due to excess calories; Z68.42 Body mass index [BMI] 45.0-49.9, adult; M79.7 Fibromyalgia; Z85.3 Personal history of malignant neoplasm of breast; M19.90 Unspecified osteoarthritis, unspecified site
CPT/HCPCS: 45378; 96374; 96375; 96376; J1170; J2270; J2405; J2704; J7030

== ENCOUNTER 2023-09-24 08:54 | Oncology outpatient (recurring) (ONCR) | payer BC, SELFPAY ==
[2023-09-24 09:41] LABS: Basophils # 0.1 10^3/uL (0.0-0.1); Eosinophils # 0.1 10^3/uL (0.0-0.8); Eosinophils % 2.6 %; Hematocrit 27.2 % (36-47); Lymphocytes # 1.4 10^3/uL (0.8-4.8); Lymphocytes % 28.1 %; Mean Corpuscular HGB Conc 34.6 g/dL (30-55); Mean Corpuscular Hemoglobin 34.4 pg (27-33); Mean Corpuscular Volume 99.6 fl (85-98); Mean Platelet Volume 8.2 fL (7.4-10.4); Monocytes # 0.4 10^3/uL (0.2-0.9); Monocytes % 6.9 %; Neutrophils % 61.2 %; Nucleated Red Blood Cells % 0 %; Platelet Count 291 10^3/cmm (157-399); Red Blood Count 2.73 10^6/uL (3.85-5.65); White Blood Count 5.06 10^3/uL (3.29-11.43)
[2023-09-24 10:04] LABS: Alanine Aminotransferase 18 U/L (0-33); Albumin Level 4.2 g/dL (3.5-5.2); Alkaline Phosphatase 74 U/L (35-105); Anion Gap 15.6 (5-19); Aspartate Amino Transferase 32 U/L (0-32); Blood Urea Nitrogen 7 mg/dL (6-20); Calcium 9.4 mg/dL (8.5-10.5); Carbon Dioxide 26 mmol/L (22-29); Chloride 99 mmol/L (98-107); Ferritin 195 ng/mL (15-150); Globulin 3.3 g/dL (1.3-4.6); Glomerular Filtration Rate 74.7 mL/min (90-130); Glucose 95 mg/dL (65-115); Iron 99 ug/dL (37-145); Osmolality Calculated 282 mOsm/kg (285-295); Percent Saturation 33.3 % (20-50); Potassium 3.6 mmol/L (3.5-5.1); Sodium 137 mmol/L (136-145); Total Bilirubin 0.6 mg/dL (0.15-1.2); Total Iron Binding Capacity 297 mcg/dl; Total Protein 7.5 g/dL (6.6-8.7); Unsaturated Iron Binding 198 ug/dL (112-347)
[2023-09-24 10:48] LABS: Folate Level > 20.0 ng/mL (4.8-37.3)
[2023-09-26 18:09] LABS: Soluble Transferrin Receptor 1.03 mg/L (0.76-1.76)
[2023-09-27 07:40] LABS: Methylmalonic Acid 120 nmol/L (87-318)
== END 2023-10-19 23:59 | disposition home or self-care (01) ==
PROVIDERS: Internal Medicine; PCP Internal Medicine Medical Oncology; Visit Provider Internal Medicine Medical Oncology
DX: C50.411 Malignant neoplasm of upper-outer quadrant of right female breast (principal); Z45.2 Encounter for adjustment and management of vascular access device; R53.83 Other fatigue; D64.9 Anemia, unspecified; M25.50 Pain in unspecified joint; Z90.13 Acquired absence of bilateral breasts and nipples; Z79.899 Other long term (current) drug therapy
CPT/HCPCS: 36415; 80053; 82728; 82746; 83540; 83550; 83921; 84238; 85025

== ENCOUNTER → 2023-10-06 10:12 | Outpatient (BNVA) | payer BC, SELFPAY | PROVIDERS: PCP Internal Medicine Medical Oncology; Visit Provider Family Medicine | DX: M25.562 Pain in left knee (principal); M85.862 Other specified disorders of bone density and structure, left lower leg; M25.462 Effusion, left knee | CPT/HCPCS: 73562 ==

== ENCOUNTER 2023-11-04 20:53 | Emergency (ER) | payer BC, SELFPAY ==
[2023-11-04 20:56] VITALS: BP 138/82; PULSE 114; RESP 20; TEMP 37.6; O2SAT 95
--- NOTE | 2023-11-04 21:20 | ED_ITS ---
Documented by User: CHRISTA Oneal 11/05/23 01:04 HPI - Fever 2 General: Chief Complaint: Fever Stated Complaint: Fever\Rt Breast Time Seen by Provider: 11/04/23 21:07 Source: patient Mode of arrival: ambulatory Limitations: no limitations History of Present Illness: Patient presents emergency department today for evaluation treatment of concerns for increased leaking from her right breast and new onset fever. Patient reports not feeling particularly well through the day. She has had increased dizziness-she takes meclizine but reports it did not seem to help her symptoms today. She also got out of the shower this evening and had intense chills. She states she could not warm up. She checked her temperature and reports temperature of 102. She did take her nightly medications including her chemotherapy medications, pain medication, and Tylenol which resolved her chills but did not resolve her fever. Patient has had some congestion and cough recently. However, she is concerned as she has had an increase in draining from her right breast scar. Patient had a total mastectomy for breast cancer diagnosis. She is currently undergoing treatment with saline expanders with her doctor [facility] in [place]. She reports she is post to be having her breast augmentation in a couple of weeks. She reports she was has a little bit of draining from the scar to the right inferior breast region but states this time she has had significant more output-requiring her to place a surgical pad in the area to catch the drainage. Drainage is yellow in color but still appears relatively thin. She has a hole approximately 0.25 cm in diameter located within the surgical scar in the mid inferior breast region. She states it has always been there. She reports increase in tenderness in the right breast tissue. Review of Systems 2 General: Reports: 10 or more systems reviewed and unremarkable except in HPI and below PFSH ED 2 PFSH: Medical History Thrombosis of ovarian vein Breast cancer Osteoarthritis Chronic insomnia Chronic migraine Depression Fibromyalgia Acute adjustment disorder with anxiety PTSD (post-traumatic stress disorder) Vertigo Surgical History Port-A-Cath in place History of bilateral mastectomy History of tonsillectomy History of knee surgery Arthroscopic knee surgery x 2 History of hysterectomy for benign disease History of appendectomy History of laparoscopic cholecystectomy Family History Father Diabetes CAD (coronary artery disease) Denies family history of Dementia Cancer Social History Smoking and tobacco/nicotine status: never used tobacco/nicotine Second hand smoke exposure: No Alcohol intake: former Substance/Drug Use: never Lives independently: Yes Household members: spouse Marital status: Highest education level completed: Some College, No Degree Current occupational status: unemployed Current gender identity: Female Physical Exam 2 Const: COMMON NORMALS: no acute distress, patient oriented x3 and alert HENMT: OTHER: Pharynx is minimally erythematous without signs of exudate. Uvula midline. Mucous membranes are moist. Eye: COMMON NORMALS: Equal, round and reactive pupils present, EOMs intact bilaterally and conjunctivae normal CONJUNCTIVA: Yes conjunctivae normal P UPIL: Yes Equal, round and reactive pupils present Neck/C-Spine: COMMON NORMALS: no JVD Lymph: LYMPHATIC: no lymphadenopathy noted Chest: OTHER: Patient with well-healed surgical scars to the inferior portion of the breast bilaterally. Patient has a small hole approximately 0.25 cm in diameter to the mid anterior right breast scar without obvious active draining at this time. Patient has some redness of the right inferior breast tissue. It is tender on palpation and breast is very hard in comparison to palpation of the left breast tissue. Resp: COMMON NORMALS: normal respiratory effort, No retractions and No use of accessory muscles Cardio: COMMON NORMALS: no JVD and regular rate RATE: regular rate GI: OTHER: Normoactive bowel sounds. Abdomen is soft. : COMMON NORMALS: Yes no CVA tenderness BLADDER/KIDNEY EXAM: Yes no CVA tenderness Back/Pelvis: COMMON NORMALS: no CVA tenderness, thoracic and lumbar spine normal to inspection and thoraco-lumbar ROM normal Extremity: COMMON NORMALS: normal to inspection, full ROM and no pedal edema Neuro: COMMON NORMALS: patient oriented x3 SENSORIUM/ORIENTATION: Yes alert Skin: COMMON NORMALS: no rashes or lesions noted and turgor normal GENERAL SKIN EXAM: no rashes or lesions noted and turgor normal Course 2 Vital Signs: Vital signs: Vital Signs Temperature 99.3 F 11/04/23 23:02 Pulse Rate 97 11/05/23 01:42 Respiratory Rate 16 11/05/23 01:42 Blood Pressure 106/65 11/05/23 01:42 Pulse Oximetry 99 11/05/23 01:42 MDM - Fever Medical Decision Making Patient presents to the emergency department today with concerns of fever of 102 at home prior to arrival. Patient states she did take Tylenol and temperature in triage was 99.7. Patient has had some cough/respiratory symptoms but is concerned of increase in drainage from her surgical scar on the right breast after inflating her nuclear cardiology technologist. Patient does have a small amount of this fluid on a surgical pad which appears to be light yellow and thin consistency. Patient has quite a bit of scarring on her breast tissue and on palpation is quite hard and firm-especially compared to the left. Patient's lab work is generally unremarkable. Urinalysis is also not confirmatory for infection site. COVID and influenza are negative. Chest x-ray appears negative as well. We did attempt to reach out to Dr. Schmidt to discuss this patient's evaluation here in the emergency department but was unable to reach him. I then reached out to Dr. Roche to discuss. As patient has no obvious findings in her evaluation today to indicate an exact reason for the patient's fevers, we did speak to get his opinion on any further recommendations for patient evaluation today. After looking through the patient's chart and HPI, he recommended adding inflammatory markers and getting an ultrasound of the patient's right breast. He indicated he thought this would be the most likely cause of the infection given the otherwise negative workup. However, patient would still most likely require evaluation by her surgeon in [place] after her evaluation here in the emergency department but, could start prophylactic antibiotics as well. There are still pending blood and urine cultures for this patient as well. As we are still waiting for ultrasound results, transfer of care to Dr. Zhang at 0100 for continued monitoring and management of this patient. Differential Diagnosis Unlikely abdominal pain, acute appendicitis, calculus of kidney, constipation, diverticulitis, gastroenteritis, pancreatitis or small bowel obstruction Lab Data 11/04/23 21:37 11/04/23 21:37 Radiology Impressions Chest X-Ray 11/04/23 22:51 IMPRESSION: 1. No acute cardiopulmonary abnormality. Breast Ultrasound 11/05/23 23:44 IMPRESSION: Tissue nuclear cardiology technologist appears collapsed within a pole of fluid. Findings likely represent rupture of the tissue nuclear cardiology technologist but in seroma or developing abscess cannot be excluded. Consider ultrasound guided aspiration of the fluid for diagnostic purposes. Laboratory Results WBC 9.33 10^3/uL (3.29-11.43) 11/04/23 21: RBC 2.83 10^6/uL (3.85-5.65) L 11/04/23 21:37 Hgb 10.00 g/dL (11.27-16.99) L 11/04/23 21:37 Hct 28.2 % (36-47) L 11/04/23 21:37 MCV 99.6 fl (85-98) H 11/04/23 21:37 MCH 35.3 pg (27-33) H 11/04/23 21: MCHC 35.5 g/dL (30-55) 11/04/23 21: RDW 13.7 % (12.1-15.1) 11/04/23 21: Plt Count 293 10^3/cmm (157-399) 11/04/23 21: MPV 8.4 fL (7.4-10.4) 11/04/23 21: Neut % (Auto) 82.9 % 11/04/23 21: Lymph % (Auto) 10.3 % 11/04/23 21:37 Forest % (Auto) 4.7 % 11/04/23 21:37 Eos % (Auto) 1.1 % 11/04/23 21: Baso % (Auto) 0.5 % 11/04/23 21: Neut # (Auto) 7.73 10^3/uL (1.8-7.7) H 11/04/23 21:37 Lymph # (Auto) 1.0 10^3/uL (0.8-4.8) 11/04/23 21:37 Forest # (Auto) 0.4 10^3/uL (0.2-0.9) 11/04/23 21:37 Eos # (Auto) 0.1 10^3/uL (0.0-0.8) 11/04/23 21:37 Baso # (Auto) 0.1 10^3/uL (0.0-0.1) 11/04/23 21:37 Nucleated RBC % (auto) 0 % 11/04/23 21:37 Nucleated RBCs # 0.0 /100WBC 11/04/23 21:37 ESR 42 mm/hr (0-15) H 11/04/23 21:37 Sodium 134 mmol/L (136-145) L 11/04/23 21:37 Potassium 3.6 mmol/L (3.5-5.1) 11/04/23 21:37 Chloride 96 mmol/L (98-107) L 11/04/23 21:37 Carbon Dioxide 26 mmol/L (22-29) 11/04/23 21:37 Anion Gap 15.6 (5-19) 11/04/23 21:37 BUN 9 mg/dL (6-20) 11/04/23 21:37 Creatinine 0.8 mg/dL (0.5-0.9) 11/04/23 21:37 GFR Calculation 74.7 mL/min (90-130) L 11/04/23 21:37 Glucose 116 mg/dL (65-115) H 11/04/23 21:37 Calculated Osmolality 278 mOsm/kg (285-295) L 11/04/23 21:37 Lactic Acid 1.1 mmol/L (0.5-2.2) 11/04/23 21:37 Calcium 9.4 mg/dL (8.5-10.5) 11/04/23 21:37 Total Bilirubin 0.4 mg/dL (0.15-1.2) 11/04/23 21:37 AST 24 U/L (0-32) 11/04/23 21:37 ALT 13 U/L (0-33) 11/04/23 21:37 Alkaline Phosphatase 80 U/L (35-105) 11/04/23 21:37 C-Reactive Protein 31.9 mg/L (0.0-4.9) H 11/04/23 21:37 Total Protein 7.3 g/dL (6.6-8.7) 11/04/23 21:37 Albumin 3.9 g/dL (3.5-5.2) 11/04/23 21:37 Globulin 3.4 g/dL (1.3-4.6) 11/04/23 21:37 Procalcitonin 0.04 ng/mL (0-0.5) 11/04/23 21:37 Urine Color Yellow (Yellow) 11/04/23 22:35 Urine Appearance Clear (CLEAR) 11/04/23 22:35 Urine pH 7 (5-7) 11/04/23 22:35 Ur Specific Bath 1.005 (1.005-1.030) 11/04/23 22:35 Urine Protein Neg (Negative) 11/04/23 22:35 Urine Glucose (UA) Norm (Normal) 11/04/23 22:35 Urine Ketones Negative (Negative) 11/04/23 22:35 Urine Blood 2+ (Negative) H 11/04/23 22:35 Urine Nitrate Negative (Negative) 11/04/23 22:35 Urine Bilirubin Neg (Negative) 11/04/23 22:35 Urine Urobilinogen Norm mg/dL (Negative) 11/04/23 22:35 Ur Leukocyte Esterase Negative (Negative) 11/04/23 22:35 Urine RBC 0-4 /hpf (0-2) H 11/04/23 22:35 Urine WBC 0-4 /hpf (0-5) H 11/04/23 22:35 Ur Squamous Epith Cells 0-4 /hpf (0-5) H 11/04/23 22:35 Amorphous Sediment Not Reportable 11/04/23 22:35 Urine Bacteria Trace /hpf (NONE) 11/04/23 22:35 Influenza Type A Ag negative (Negative) 11/04/23 21:39 Influenza Type B Ag negative (Negative) 11/04/23 21:39 SARS-CoV-2 Ag (Rapid) negative (Negative) 11/04/23 21:39 All radiology interpretation(s) finalized by discharge Discharge Plan Discharge Patient Disposition: Home Clinical Impression: Fever, Abnormal ultrasound of breast Condition: Stable Prescriptions: No Action sumatriptan succinate 100 mg tablet See Rx Instructions PO .COMPLEX Qty: 14 3RF Rx Instructions: take 1 tab at onset of headache; if no relief, may repeat 1 tab after at least 2 hrs as needed; max = 2 tabs/24 hrs PO promethazine 25 mg tablet 25 mg PO BID exemestane 25 mg tablet 25 mg PO DAILY Qty: 90 2RF Rx Instructions: must administer after a meal Ventolin HFA 90 mcg/actuation HFA aerosol inhaler 2 puff INHALATION Q4H PRN (Reason: Shortness Of Breath) Qty: 8 2RF (DME) hospital bed See Rx Instructions .Route .MEDSUPPLY Qty: 1 0RF Rx Instructions: Use as directed oxycodone 10 mg tablet 10 mg PO QID PRN (Reason: pain) 30 Days Qty: 120 0RF lorazepam 1 mg tablet 1 mg PO BID PRN (Reason: anxiety) Qty: 60 3RF diphenoxylate-atropine [Lomotil] 2.5-0.025 mg tablet 2 tab PO QID PRN (Reason: diarrhea) Qty: 45 0RF oxycodone 15 mg tablet,oral only,ext.rel.12 hr 15 mg PO BID 30 Days Qty: 60 0RF Verzenio 100 mg tablet See Rx Instructions .ROUTE .COMPLEX Qty: 56 0RF Dose Instruction: TAKE 1 TABLET TWICE A DAY. Rx Instructions: TAKE 1 TABLET TWICE A DAY. multivitamin Tablet 1 tab PO QAM krill oil 500 mg capsule 1,000 mg PO QAM polyethylene glycol 3350 [Miralax] 17 gram Powder In Packet 17 g PO DAILY@12 PRN (Reason: Constipation) meclizine 25 mg tablet 25 mg PO BID PRN (Reason: Dizziness) diclofenac sodium [Voltaren Arthritis Pain] 1 % gel 4 g topical QID PRN (Reason: Pain) Rx Instructions: apply to single knee, ankle, foot; for foot includes sole/toes/top of foot acetaminophen 500 mg Tablet 500 mg PO .WITH CHEMO Collagen Plus Vitamin C 125-740 mg Capsule 1 cap PO QAM ondansetron HCl 8 mg tablet 8 mg PO Q8H PRN (Reason: Nausea) Rx Instructions: TAKE ONE TABLET BY MOUTH EVERY 8 HOURS Discharge Orders: Discharge ED (Routine); Ordered 11/05/23 Ordered By: Eder Zhang Referrals: Gigi Schmidt MD [Primary Care Provider] - 1 week Patient Instructions: Fever - Adult, Ultrasound Activity Restrictions/Additional Instructions: Please take all your medicine as directed. Please follow-up with your surgeon about the breast nuclear cardiology technologist at your previously scheduled appointment next week. Please continue to take Tylenol and/or ibuprofen as needed for fever reduction. 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 [facility] [employer] Documented by User: Eder Zhang DO 11/05/23 02:24 HPI - Fever 2 General: Chief Complaint: Fever Stated Complaint: Fever\Rt Breast Time Seen by Provider: 11/04/23 21:07 PFSH ED 2 PFSH: Medical History Thrombosis of ovarian vein Breast cancer Osteoarthritis Chronic insomnia Chronic migraine Depression Fibromyalgia Acute adjustment disorder with anxiety PTSD (post-traumatic stress disorder) Vertigo Surgical History Port-A-Cath in place History of bilateral mastectomy History of tonsillectomy History of knee surgery Arthroscopic knee surgery x 2 History of hysterectomy for benign disease History of appendectomy History of laparoscopic cholecystectomy Family History Father Diabetes CAD (coronary artery disease) Denies family history of Dementia Cancer Social History Smoking and tobacco/nicotine status: never used tobacco/nicotine Second hand smoke exposure: No Alcohol intake: former Substance/Drug Use: never Lives independently: Yes Household members: spouse Marital status: Highest education level completed: Some College, No Degree Current occupational status: unemployed Current gender identity: Female Course 2 Vital Signs: Vital signs: Vital Signs Temperature 99.3 F 11/04/23 23:02 Pulse Rate 97 11/05/23 01:42 Respiratory Rate 16 11/05/23 01:42 Blood Pressure 106/65 11/05/23 01:42 Pulse Oximetry 99 11/05/23 01:42 MDM - Fever Medical Decision Making Patient presents to the emergency department today with concerns of fever of 102 at home prior to arrival. Patient states she did take Tylenol and temperature in triage was 99.7. Patient has had some cough/respiratory symptoms but is concerned of increase in drainage from her surgical scar on the right breast after inflating her nuclear cardiology technologist. Patient does have a small amount of this fluid on a surgical pad which appears to be light yellow and thin consistency. Patient has quite a bit of scarring on her breast tissue and on palpation is quite hard and firm-especially compared to the left. Patient's lab work is generally unremarkable. Urinalysis is also not confirmatory for infection site. COVID and influenza are negative. Chest x-ray appears negative as well. We did attempt to reach out to Dr. Schmidt to discuss this patient's evaluation here in the emergency department but was unable to reach him. I then reached out to Dr. Roche to discuss. As patient has no obvious findings in her evaluation today to indicate an exact reason for the patient's fevers, we did speak to get his opinion on any further recommendations for patient evaluation today. After looking through the patient's chart and HPI, he recommended adding inflammatory markers and getting an ultrasound of the patient's right breast. He indicated he thought this would be the most likely cause of the infection given the otherwise negative workup. However, patient would still most likely require evaluation by her surgeon in [place] after her evaluation here in the emergency department but, could start prophylactic antibiotics as well. There are still pending blood and urine cultures for this patient as well. As we are still waiting for ultrasound results, transfer of care to Dr. Zhang at 0100 for continued monitoring and management of this patient. Ultrasound results revealed probable tissue nuclear cardiology technologist rupture or seroma or abscess. These results was discussed with the patient. Due to patient's normal white count with the do think may be tissue nuclear cardiology technologist rupture or seroma not abscess however we will go ahead and place the patient on prophylactic antibiotics and refer her back to the surgeon to put the nuclear cardiology technologist in place. Which she already has appointment with within the next 1 week. Patient be discharged home Lab Data 11/04/23 21:37 11/04/23 21:37 Radiology Impressions Chest X-Ray 11/04/23 22:51 IMPRESSION: 1. No acute cardiopulmonary abnormality. Breast Ultrasound 11/05/23 23:44 IMPRESSION: Tissue nuclear cardiology technologist appears collapsed within a pole of fluid. Findings likely represent rupture of the tissue nuclear cardiology technologist but in seroma or developing abscess cannot be excluded. Consider ultrasound guided aspiration of the fluid for diagnostic purposes. Laboratory Results WBC 9.33 10^3/uL (3.29-11.43) 11/04/23 21:37 RBC 2.83 10^6/uL (3.85-5.65) L 11/04/23 21:37 Hgb 10.00 g/dL (11.27-16.99) L 11/04/23 21:37 Hct 28.2 % (36-47) L 11/04/23 21:37 MCV 99.6 fl (85-98) H 11/04/23 21:37 MCH 35.3 pg (27-33) H 11/04/23 21:37 MCHC 35.5 g/dL (30-55) 11/04/23 21:37 RDW 13.7 % (12.1-15.1) 11/04/23 21:37 Plt Count 293 10^3/cmm (157-399) 11/04/23 21:37 MPV 8.4 fL (7.4-10.4) 11/04/23 21:37 Neut % (Auto) 82.9 % 11/04/23 21:37 Lymph % (Auto) 10.3 % 11/04/23 21:37 Forest % (Auto) 4.7 % 11/04/23 21:37 Eos % (Auto) 1.1 % 11/04/23 21:37 Baso % (Auto) 0.5 % 11/04/23 21:37 Neut # (Auto) 7.73 10^3/uL (1.8-7.7) H 11/04/23 21:37 Lymph # (Auto) 1.0 10^3/uL (0.8-4.8) 11/04/23 21:37 Forest # (Auto) 0.4 10^3/uL (0.2-0.9) 11/04/23 21:37 Eos # (Auto) 0.1 10^3/uL (0.0-0.8) 11/04/23 21:37 Baso # (Auto) 0.1 10^3/uL (0.0-0.1) 11/04/23 21:37 Nucleated RBC % (auto) 0 % 11/04/23 21: Nucleated RBCs # 0.0 /100WBC 11/04/23 21:37 ESR 42 mm/hr (0-15) H 11/04/23 21:37 Sodium 134 mmol/L (136-145) L 11/04/23 21:37 Potassium 3.6 mmol/L (3.5-5.1) 11/04/23 21:37 Chloride 96 mmol/L (98-107) L 11/04/23 21:37 Carbon Dioxide 26 mmol/L (22-29) 11/04/23 21:37 Anion Gap 15.6 (5-19) 11/04/23 21:37 BUN 9 mg/dL (6-20) 11/04/23 21:37 Creatinine 0.8 mg/dL (0.5-0.9) 11/04/23 21:37 GFR Calculation 74.7 mL/min (90-130) L 11/04/23 21:37 Glucose 116 mg/dL (65-115) H 11/04/23 21:37 Calculated Osmolality 278 mOsm/kg (285-295) L 11/04/23 21:37 Lactic Acid 1.1 mmol/L (0.5-2.2) 11/04/23 21:37 Calcium 9.4 mg/dL (8.5-10.5) 11/04/23 21:37 Total Bilirubin 0.4 mg/dL (0.15-1.2) 11/04/23 21:37 AST 24 U/L (0-32) 11/04/23 21:37 ALT 13 U/L (0-33) 11/04/23 21:37 Alkaline Phosphatase 80 U/L (35-105) 11/04/23 21:37 C-Reactive Protein 31.9 mg/L (0.0-4.9) H 11/04/23 21:37 Total Protein 7.3 g/dL (6.6-8.7) 11/04/23 21:37 Albumin 3.9 g/dL (3.5-5.2) 11/04/23 21:37 Globulin 3.4 g/dL (1.3-4.6) 11/04/23 21:37 Procalcitonin 0.04 ng/mL (0-0.5) 11/04/23 21:37 Urine Color Yellow (Yellow) 11/04/23 22:35 Urine Appearance Clear (CLEAR) 11/04/23 22:35 Urine pH 7 (5-7) 11/04/23 22:35 Ur Specific Bath 1.005 (1.005-1.030) 11/04/23 22:35 Urine Protein Neg (Negative) 11/04/23 22:35 Urine Glucose (UA) Norm (Normal) 11/04/23 22:35 Urine Ketones Negative (Negative) 11/04/23 22:35 Urine Blood 2+ (Negative) H 11/04/23 22:35 Urine Nitrate Negative (Negative) 11/04/23 22:35 Urine Bilirubin Neg (Negative) 11/04/23 22:35 Urine Urobilinogen Norm mg/dL (Negative) 11/04/23 22:35 Ur Leukocyte Esterase Negative (Negative) 11/04/23 22:35 Urine RBC 0-4 /hpf (0-2) H 11/04/23 22:35 Urine WBC 0-4 /hpf (0-5) H 11/04/23 22:35 Ur Squamous Epith Cells 0-4 /hpf (0-5) H 11/04/23 22:35 Amorphous Sediment Not Reportable 11/04/23 22:35 Urine Bacteria Trace /hpf (NONE) 11/04/23 22:35 Influenza Type A Ag negative (Negative) 11/04/23 21:39 Influenza Type B Ag negative (Negative) 11/04/23 21:39 SARS-CoV-2 Ag (Rapid) negative (Negative) 11/04/23 21:39 Discharge Plan Discharge Patient Disposition: Home Clinical Impression: Fever, Abnormal ultrasound of breast Condition: Stable Prescriptions: No Action sumatriptan succinate 100 mg tablet See Rx Instructions PO .COMPLEX Qty: 14 3RF Rx Instructions: take 1 tab at onset of headache; if no relief, may repeat 1 tab after at least 2 hrs as needed; max = 2 tabs/24 hrs PO promethazine 25 mg tablet 25 mg PO BID exemestane 25 mg tablet 25 mg PO DAILY Qty: 90 2RF Rx Instructions: must administer after a meal Ventolin HFA 90 mcg/actuation HFA aerosol inhaler 2 puff INHALATION Q4H PRN (Reason: Shortness Of Breath) Qty: 8 2RF (DME) hospital bed See Rx Instructions .Route .MEDSUPPLY Qty: 1 0RF Rx Instructions: Use as directed oxycodone 10 mg tablet 10 mg PO QID PRN (Reason: pain) 30 Days Qty: 120 0RF lorazepam 1 mg tablet 1 mg PO BID PRN (Reason: anxiety) Qty: 60 3RF diphenoxylate-atropine [Lomotil] 2.5-0.025 mg tablet 2 tab PO QID PRN (Reason: diarrhea) Qty: 45 0RF oxycodone 15 mg tablet,oral only,ext.rel.12 hr 15 mg PO BID 30 Days Qty: 60 0RF Verzenio 100 mg tablet See Rx Instructions .ROUTE .COMPLEX Qty: 56 0RF Dose Instruction: TAKE 1 TABLET TWICE A DAY. Rx Instructions: TAKE 1 TABLET TWICE A DAY. multivitamin Tablet 1 tab PO QAM krill oil 500 mg capsule 1,000 mg PO QAM polyethylene glycol 3350 [Miralax] 17 gram Powder In Packet 17 g PO DAILY@12 PRN (Reason: Constipation) meclizine 25 mg tablet 25 mg PO BID PRN (Reason: Dizziness) diclofenac sodium [Voltaren Arthritis Pain] 1 % gel 4 g topical QID PRN (Reason: Pain) Rx Instructions: apply to single knee, ankle, foot; for foot includes sole/toes/top of foot acetaminophen 500 mg Tablet 500 mg PO .WITH CHEMO Collagen Plus Vitamin C 125-740 mg Capsule 1 cap PO QAM ondansetron HCl 8 mg tablet 8 mg PO Q8H PRN (Reason: Nausea) Rx Instructions: TAKE ONE TABLET BY MOUTH EVERY 8 HOURS Discharge Orders: Discharge ED (Routine); Ordered 11/05/23 Ordered By: Eder Zhang Referrals: Gigi Schmidt MD [Primary Care Provider] - 1 week Patient Instructions: Fever - Adult, Ultrasound Activity Restrictions/Additional Instructions: Please take all your medicine as directed. Please follow-up with your surgeon about the breast nuclear cardiology technologist at your previously scheduled appointment next week. Please continue to take Tylenol and/or ibuprofen as needed for fever reduction. 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 Reece Barnes
[2023-11-04 21:50] LABS: Basophils # 0.1 10^3/uL (0.0-0.1); Basophils % 0.5 %; Eosinophils # 0.1 10^3/uL (0.0-0.8); Eosinophils % 1.1 %; Hematocrit 28.2 % (36-47); Lymphocytes % 10.3 %; Mean Corpuscular HGB Conc 35.5 g/dL (30-55); Mean Corpuscular Hemoglobin 35.3 pg (27-33); Mean Corpuscular Volume 99.6 fl (85-98); Mean Platelet Volume 8.4 fL (7.4-10.4); Monocytes # 0.4 10^3/uL (0.2-0.9); Monocytes % 4.7 %; Neutrophils # 7.73 10^3/uL (1.8-7.7); Neutrophils % 82.9 %; Nucleated Red Blood Cells % 0 %; Platelet Count 293 10^3/cmm (157-399); Red Blood Count 2.83 10^6/uL (3.85-5.65); Red Cell Distribution Width 13.7 % (12.1-15.1); White Blood Count 9.33 10^3/uL (3.29-11.43)
[2023-11-04 22:10] LABS: Alanine Aminotransferase 13 U/L (0-33); Albumin Level 3.9 g/dL (3.5-5.2); Alkaline Phosphatase 80 U/L (35-105); Anion Gap 15.6 (5-19); Aspartate Amino Transferase 24 U/L (0-32); Blood Urea Nitrogen 9 mg/dL (6-20); Calcium 9.4 mg/dL (8.5-10.5); Carbon Dioxide 26 mmol/L (22-29); Chloride 96 mmol/L (98-107); Globulin 3.4 g/dL (1.3-4.6); Glomerular Filtration Rate 74.7 mL/min (90-130); Glucose 116 mg/dL (65-115); Osmolality Calculated 278 mOsm/kg (285-295); Potassium 3.6 mmol/L (3.5-5.1); Sodium 134 mmol/L (136-145); Total Bilirubin 0.4 mg/dL (0.15-1.2); Total Protein 7.3 g/dL (6.6-8.7)
[2023-11-04 22:11] LABS: Lactic Sepsis W/Reflex 1.1 mmol/L (0.5-2.2)
[2023-11-04 22:14] LABS: Influenza A by IFA negative (Negative); Influenza B by IFA negative (Negative); SARS Covid-2 Antigen negative (Negative)
[2023-11-04 22:17] LABS: Procalcitonin 0.04 ng/mL (0-0.5)
[2023-11-04 22:50] LABS: Add Urine Culture? No; Add Urine Microscopic? YES; Bacteria Urine TRACE /hpf; Bilirubin Urine Neg (Negative); Blood Urine 2+ (Negative); Glucose Urine UA Norm (Normal); Ketones Urine Negative (Negative); Leukocyte Esterase Urine Negative (Negative); Nitrate Urine Negative (Negative); Protein Urine Neg (Negative); RBC Urine 0-4 /hpf (0-2); Specific Gravity, Urine 1.005 (1.005-1.030); Squamous Epithelial Cell Urine 0-4 /hpf (0-5); Urine Appearance Clear (CLEAR); Urine Color Yellow (Yellow); Urobilinogen Urine Norm (Negative); WBC Urine 0-4 /hpf (0-5); pH Urine 7 (5-7)
--- NOTE | 2023-11-04 22:51 | XRR_ITS ---
PROCEDURE INFORMATION: Exam: XR Chest Exam date and time: 11/04/2023 10:57 PM Age: 52 years old Clinical indication: Fever; Prior surgery; Surgery date: 1-6 months; Surgery type: Sam mast has expanders in chest for reconstruction; Additional info: Fever, chemo PT TECHNIQUE: Imaging protocol: Radiologic exam of the chest. Views: 1 view. COMPARISON: CR XR chest 1V portable [id number] 06/17/2022 8:05 AM FINDINGS: Lungs: No focal consolidation. Pleural spaces: No evidence of pneumothorax or pleural effusion. Heart/Mediastinum: Cardiomediastinal silhouette is within normal limits. Bones/joints: No evidence of acute osseous abnormality. XR/XR chest 1V [id number] IMPRESSION: 1. No acute cardiopulmonary abnormality.
[2023-11-04] MEDS: sodium chloride 0.9% 500 ML IV (22:54)
[2023-11-04 23:02] VITALS: BP 106/63; PULSE 98; RESP 17; TEMP 37.4; O2SAT 91
[2023-11-04 23:52] VITALS: RESP 20
[2023-11-04] MEDS: HYDROmorphone 1 mg/mL INJ 1 mL 0.5 MG IVP (23:52)
[2023-11-04 23:54] LABS: Erythrocyte Sedimentation Rate 42 mm/hr (0-15)
[2023-11-05 00:01] LABS: C Reactive Protein 31.9 mg/L (0.0-4.9)
[2023-11-05] MEDS: ketorolac 30 mg/mL INJ IVP (01:40)
[2023-11-05 01:42] VITALS: BP 106/65; PULSE 97; RESP 16; O2SAT 99
[2023-11-05] MEDS: sulfamethoxazole-trimeth DS 160-800 mg Tablet 1 TAB PO (02:25)
[2023-11-05 02:26] VITALS: PULSE 102; RESP 16; O2SAT 94
--- NOTE | 2023-11-05 23:44 | USR_ITS ---
PROCEDURE INFORMATION: Exam: US Right Breast Limited; Cellulitis or Abscess Evaluation Exam date and time: 11/05/2023 1:03 AM Age: 52 years old Clinical indication: Breast pain; Right; Prior surgery; Surgery date: 1-6 months; Surgery type: Following RT total mastectomy October 28, 2022, pain elected to proceed with breast reconstruction. A saline forming press operator was inserted two months ago. Patient HX: C/O febrile 100f, painful RT breast, weeping yellow fluid from a small hole at 6 oclock. ; Additional info: Draining, PT w/forming press operator, draining from wound. Pain. Reports fever on TECHNIQUE: Imaging protocol: Right breast ultrasound. Exam limited to the quadrant(s) of clinical concern. Exam focused on the evaluation of cellulitis or abscess. Exam is an emergent request and a non-BIRADS study. COMPARISON: [place] [id number] 04/08/2022 8:25 AM FINDINGS: Breast/Soft tissues: Soft tissue forming press operator appears collapsed within a pool of fluid. US/US breast RT complete [id number] IMPRESSION: Tissue forming press operator appears collapsed within a pole of fluid. Findings likely represent rupture of the tissue forming press operator but in seroma or developing abscess cannot be excluded. Consider ultrasound guided aspiration of the fluid for diagnostic purposes.
== END 2023-11-05 02:41 | disposition home or self-care (01) ==
PROVIDERS: Emergency Provider Physician Assistant; PCP Internal Medicine Medical Oncology
DX: R50.9 Fever, unspecified (principal); R92.8 Other abnormal and inconclusive findings on diagnostic imaging of breast
CPT/HCPCS: 36415; 71045; 76641; 80053; 81001; 83605; 84145; 85025; 85651; 86140; 87040; 87086; 87426; 87804; 96361; 96374; 96375; 99284; J1170; J1885; J7040

== ENCOUNTER 2023-11-19 10:28 | Oncology outpatient (recurring) (ONCR) | payer BC, SELFPAY ==
[2023-11-19 10:46] LABS: Basophils # 0.1 10^3/uL (0.0-0.1); Basophils % 1.1 %; Eosinophils # 0.5 10^3/uL (0.0-0.8); Eosinophils % 5.7 %; Hematocrit 30.2 % (36-47); Lymphocytes # 1.7 10^3/uL (0.8-4.8); Lymphocytes % 19.5 %; Mean Corpuscular HGB Conc 33.4 g/dL (30-55); Mean Corpuscular Volume 101.7 fl (85-98); Mean Platelet Volume 8.3 fL (7.4-10.4); Monocytes # 0.8 10^3/uL (0.2-0.9); Monocytes % 9.6 %; Neutrophils # 5.42 10^3/uL (1.8-7.7); Nucleated Red Blood Cells % 0 %; Platelet Count 597 10^3/cmm (157-399); Red Blood Count 2.97 10^6/uL (3.85-5.65); Red Cell Distribution Width 13.6 % (12.1-15.1); White Blood Count 8.75 10^3/uL (3.29-11.43)
[2023-11-19 11:13] LABS: Alanine Aminotransferase 33 U/L (0-33); Albumin Level 3.9 g/dL (3.5-5.2); Alkaline Phosphatase 168 U/L (35-105); Anion Gap 16.3 (5-19); Aspartate Amino Transferase 43 U/L (0-32); Blood Urea Nitrogen 8 mg/dL (6-20); Calcium 9.8 mg/dL (8.5-10.5); Carbon Dioxide 29 mmol/L (22-29); Chloride 96 mmol/L (98-107); Glomerular Filtration Rate 87.2 mL/min (90-130); Glucose 126 mg/dL (65-115); Osmolality Calculated 284 mOsm/kg (285-295); Potassium 4.3 mmol/L (3.5-5.1); Sodium 137 mmol/L (136-145); Total Bilirubin 0.3 mg/dL (0.15-1.2); Total Protein 7.9 g/dL (6.6-8.7)
== END 2023-11-19 23:59 | disposition home or self-care (01) ==
PROVIDERS: PCP Internal Medicine Medical Oncology; Visit Provider Internal Medicine Medical Oncology
DX: C50.411 Malignant neoplasm of upper-outer quadrant of right female breast (principal); Z45.2 Encounter for adjustment and management of vascular access device; R53.83 Other fatigue; D64.9 Anemia, unspecified; M25.50 Pain in unspecified joint; Z90.13 Acquired absence of bilateral breasts and nipples; Z79.899 Other long term (current) drug therapy
CPT/HCPCS: 36415; 80053; 85025

== ENCOUNTER 2024-01-13 08:00 | Oncology outpatient (recurring) (ONCR) | payer BC, SELFPAY ==
[2023-12-22 15:09] LABS: Basophils # 0.1 10^3/uL (0.0-0.1); Basophils % 0.8 %; Eosinophils # 0.2 10^3/uL (0.0-0.8); Eosinophils % 2.7 %; Hematocrit 22.8 % (36-47); Lymphocytes # 1.6 10^3/uL (0.8-4.8); Lymphocytes % 24.8 %; Mean Corpuscular HGB Conc 32.5 g/dL (30-55); Mean Corpuscular Hemoglobin 34.4 pg (27-33); Mean Platelet Volume 7.7 fL (7.4-10.4); Monocytes # 0.3 10^3/uL (0.2-0.9); Monocytes % 4.2 %; Nucleated Red Blood Cells % 0 %; Platelet Count 420 10^3/cmm (157-399); Red Blood Count 2.15 10^6/uL (3.85-5.65); Red Cell Distribution Width 15.9 % (12.1-15.1); White Blood Count 6.41 10^3/uL (3.29-11.43)
[2023-12-22 15:34] LABS: Alanine Aminotransferase 13 U/L (0-33); Albumin Level 3.5 g/dL (3.5-5.2); Alkaline Phosphatase 95 U/L (35-105); Anion Gap 14.6 (5-19); Aspartate Amino Transferase 20 U/L (0-32); Blood Urea Nitrogen 6 mg/dL (6-20); Calcium 9.1 mg/dL (8.5-10.5); Carbon Dioxide 27 mmol/L (22-29); Chloride 95 mmol/L (98-107); Globulin 3.6 g/dL (1.3-4.6); Glomerular Filtration Rate 104.2 mL/min (90-130); Glucose 89 mg/dL (65-115); Osmolality Calculated 273 mOsm/kg (285-295); Potassium 3.6 mmol/L (3.5-5.1); Sodium 133 mmol/L (136-145); Total Bilirubin 0.3 mg/dL (0.15-1.2); Total Protein 7.1 g/dL (6.6-8.7)
[2023-12-22 15:56] LABS: Slide Review Slide Review Perform
[2023-12-23] VITALS (12 sets, daily range): BP systolic 94–124; BP diastolic 62–78; PULSE 85–101; RESP 17–20; TEMP 36.6–37.3; O2SAT 92–98
[2023-12-23] MEDS: acetaminophen 325 mg Tablet 650 MG PO (08:47)
[2023-12-23] MEDS: sodium chloride 0.9% 250 mL Bag IV (08:48)
[2023-12-23 15:37] LABS: Reticulocyte % 3.2 % (0.5-2.0)
[2023-12-23 15:43] LABS: Ferritin 309 ng/mL (15-150); Iron 41 ug/dL (37-145); Lactate Dehydrogenase 181 U/L (135-214); Percent Saturation 18.9 % (20-50); Total Iron Binding Capacity 216 mcg/dl; Unsaturated Iron Binding 175 ug/dL (112-347)
[2023-12-23 15:58] LABS: Vitamin B12 848 pg/mL (232-1245)
[2023-12-30 08:00] VITALS: BP 112/78; PULSE 78; RESP 18; TEMP 36.6; O2SAT 98
[2023-12-30 08:16] LABS: Basophils % 0.8 %; Eosinophils # 0.1 10^3/uL (0.0-0.8); Eosinophils % 2.7 %; Hematocrit 25.7 % (36-47); Lymphocytes # 1.3 10^3/uL (0.8-4.8); Mean Corpuscular HGB Conc 33.5 g/dL (30-55); Mean Corpuscular Hemoglobin 33.3 pg (27-33); Mean Corpuscular Volume 99.6 fl (85-98); Monocytes # 0.7 10^3/uL (0.2-0.9); Monocytes % 13.7 %; Neutrophils # 2.67 10^3/uL (1.8-7.7); Neutrophils % 55.4 %; Nucleated Red Blood Cells % 0 %; Platelet Count 293 10^3/cmm (157-399); Red Blood Count 2.58 10^6/uL (3.85-5.65); Red Cell Distribution Width 16.6 % (12.1-15.1); White Blood Count 4.82 10^3/uL (3.29-11.43)
[2023-12-30 08:41] LABS: Alanine Aminotransferase 12 U/L (0-33); Albumin Level 3.2 g/dL (3.5-5.2); Alkaline Phosphatase 112 U/L (35-105); Anion Gap 13.9 (5-19); Aspartate Amino Transferase 21 U/L (0-32); Blood Urea Nitrogen 5 mg/dL (6-20); Calcium 8.7 mg/dL (8.5-10.5); Carbon Dioxide 29 mmol/L (22-29); Chloride 97 mmol/L (98-107); Globulin 3.6 g/dL (1.3-4.6); Glomerular Filtration Rate 128.6 mL/min (90-130); Glucose 170 mg/dL (65-115); Osmolality Calculated 283 mOsm/kg (285-295); Potassium 3.9 mmol/L (3.5-5.1); Sodium 136 mmol/L (136-145); Total Bilirubin 0.3 mg/dL (0.15-1.2); Total Protein 6.8 g/dL (6.6-8.7)
[2024-01-06 08:17] VITALS: BP 125/78; PULSE 78; RESP 18; TEMP 37; O2SAT 98
[2024-01-06 08:21] LABS: Basophils # 0.1 10^3/uL (0.0-0.1); Basophils % 1.3 %; Eosinophils # 0.3 10^3/uL (0.0-0.8); Eosinophils % 3.4 %; Hematocrit 28.3 % (36-47); Lymphocytes # 1.3 10^3/uL (0.8-4.8); Lymphocytes % 16.1 %; Mean Corpuscular HGB Conc 33.6 g/dL (30-55); Mean Corpuscular Hemoglobin 33.6 pg (27-33); Mean Platelet Volume 8.1 fL (7.4-10.4); Monocytes # 0.8 10^3/uL (0.2-0.9); Monocytes % 9.7 %; Neutrophils # 5.61 10^3/uL (1.8-7.7); Nucleated Red Blood Cells % 0 %; Platelet Count 485 10^3/cmm (157-399); Red Blood Count 2.83 10^6/uL (3.85-5.65); Red Cell Distribution Width 16.3 % (12.1-15.1); White Blood Count 8.25 10^3/uL (3.29-11.43)
[2024-01-13 08:32] LABS: Basophils # 0.1 10^3/uL (0.0-0.1); Basophils % 0.5 %; Eosinophils # 0.4 10^3/uL (0.0-0.8); Eosinophils % 4.1 %; Hematocrit 27.9 % (36-47); Lymphocytes # 1.7 10^3/uL (0.8-4.8); Lymphocytes % 18.1 %; Mean Corpuscular Hemoglobin 32.5 pg (27-33); Mean Corpuscular Volume 98.6 fl (85-98); Mean Platelet Volume 8.2 fL (7.4-10.4); Monocytes # 0.7 10^3/uL (0.2-0.9); Neutrophils # 6.51 10^3/uL (1.8-7.7); Neutrophils % 68.8 %; Nucleated Red Blood Cells % 0 %; Platelet Count 507 10^3/cmm (157-399); Red Blood Count 2.83 10^6/uL (3.85-5.65); Red Cell Distribution Width 15.7 % (12.1-15.1); White Blood Count 9.46 10^3/uL (3.29-11.43)
[2024-01-13 09:04] LABS: Alanine Aminotransferase 15 U/L (0-33); Albumin Level 3.7 g/dL (3.5-5.2); Alkaline Phosphatase 137 U/L (35-105); Anion Gap 16.9 (5-19); Aspartate Amino Transferase 23 U/L (0-32); Blood Urea Nitrogen 9 mg/dL (6-20); Calcium 9.4 mg/dL (8.5-10.5); Carbon Dioxide 25 mmol/L (22-29); Chloride 96 mmol/L (98-107); Creatinine Clr Calc Pharmacy 151.9474; Globulin 4.1 g/dL (1.3-4.6); Glomerular Filtration Rate 128.1 mL/min (90-130); Glucose 163 mg/dL (65-115); Osmolality Calculated 280 mOsm/kg (285-295); Potassium 3.9 mmol/L (3.5-5.1); Sodium 134 mmol/L (136-145); Total Bilirubin 0.3 mg/dL (0.15-1.2); Total Protein 7.8 g/dL (6.6-8.7)
== END 2024-01-18 23:59 | disposition home or self-care (01) ==
PROVIDERS: PCP Internal Medicine Medical Oncology; Visit Provider Internal Medicine Medical Oncology
DX: Z53.9 Procedure and treatment not carried out, unspecified reason (principal); D64.9 Anemia, unspecified; C50.411 Malignant neoplasm of upper-outer quadrant of right female breast
CPT/HCPCS: 36415; 36430; 80053; 82607; 82728; 83010; 83540; 83550; 83615; 85025; 85045; 86850; 86900; 86920; J7050; P9016; P9040

== ENCOUNTER → 2024-01-27 16:18 | Outpatient (BNVA) | payer BC, SELFPAY | PROVIDERS: PCP Internal Medicine Medical Oncology; Visit Provider Family Medicine | DX: R05.9 Cough, unspecified (principal) | CPT/HCPCS: 87071; 87400; 87426; 87880 ==

== ENCOUNTER 2024-02-11 14:08 | Oncology outpatient (recurring) (ONCR) | payer BC, SELFPAY ==
[2024-02-11 14:53] LABS: Basophils # 0.1 10^3/uL (0.0-0.1); Basophils % 0.6 %; Eosinophils # 0.3 10^3/uL (0.0-0.8); Eosinophils % 4.2 %; Hematocrit 30.3 % (36-47); Lymphocytes # 1.9 10^3/uL (0.8-4.8); Lymphocytes % 22.8 %; Mean Corpuscular HGB Conc 31.7 g/dL (30-55); Mean Corpuscular Hemoglobin 31.6 pg (27-33); Mean Corpuscular Volume 99.7 fl (85-98); Mean Platelet Volume 8.4 fL (7.4-10.4); Monocytes # 0.8 10^3/uL (0.2-0.9); Monocytes % 9.2 %; Neutrophils % 62.3 %; Nucleated Red Blood Cells % 0 %; Platelet Count 326 10^3/cmm (157-399); Red Blood Count 3.04 10^6/uL (3.85-5.65); Red Cell Distribution Width 15.5 % (12.1-15.1); White Blood Count 8.17 10^3/uL (3.29-11.43)
[2024-02-11 15:13] LABS: Alanine Aminotransferase 13 U/L (0-33); Alkaline Phosphatase 94 U/L (35-105); Anion Gap 13.5 (5-19); Aspartate Amino Transferase 23 U/L (0-32); Blood Urea Nitrogen 14 mg/dL (6-20); Calcium 9.3 mg/dL (8.5-10.5); Carbon Dioxide 29 mmol/L (22-29); Chloride 102 mmol/L (98-107); Globulin 3.8 g/dL (1.3-4.6); Glomerular Filtration Rate 128.1 mL/min (90-130); Glucose 88 mg/dL (65-115); Osmolality Calculated 290 mOsm/kg (285-295); Potassium 4.5 mmol/L (3.5-5.1); Sodium 140 mmol/L (136-145); Total Bilirubin 0.2 mg/dL (0.15-1.2); Total Protein 7.8 g/dL (6.6-8.7)
[2024-02-11 17:04] LABS: Thyroid Stimulating Hormone 2.07 uIU/mL (0.27-4.20)
[2024-02-11 17:43] LABS: Vitamin B12 408 pg/mL (232-1245)
== END 2024-02-17 23:59 | disposition home or self-care (01) ==
PROVIDERS: Internal Medicine Hematology & Oncology; PCP Internal Medicine Medical Oncology; Visit Provider Internal Medicine Medical Oncology
DX: C50.411 Malignant neoplasm of upper-outer quadrant of right female breast (principal); R53.83 Other fatigue; N63.0 Unspecified lump in unspecified breast
CPT/HCPCS: 36415; 80053; 82607; 84443; 85025

== ENCOUNTER 2024-03-23 09:34 | Oncology outpatient (recurring) (ONCR) | payer BC, SELFPAY ==
[2024-03-23 10:13] LABS: Basophils % 0.4 %; Eosinophils # 0.2 10^3/uL (0.0-0.8); Eosinophils % 2.8 %; Hematocrit 35.4 % (36-47); Lymphocytes # 2.1 10^3/uL (0.8-4.8); Lymphocytes % 30.8 %; Mean Corpuscular HGB Conc 31.9 g/dL (30-55); Mean Corpuscular Hemoglobin 30.5 pg (27-33); Mean Corpuscular Volume 95.7 fl (85-98); Mean Platelet Volume 8.5 fL (7.4-10.4); Monocytes # 0.5 10^3/uL (0.2-0.9); Monocytes % 7.4 %; Neutrophils # 3.99 10^3/uL (1.8-7.7); Neutrophils % 58.3 %; Nucleated Red Blood Cells % 0 %; Platelet Count 288 10^3/cmm (157-399); Red Cell Distribution Width 14.2 % (12.1-15.1); White Blood Count 6.85 10^3/uL (3.29-11.43)
[2024-03-23 10:46] LABS: Alanine Aminotransferase 18 U/L (0-33); Albumin Level 4.2 g/dL (3.5-5.2); Alkaline Phosphatase 104 U/L (35-105); Anion Gap 11.9 (5-19); Aspartate Amino Transferase 25 U/L (0-32); Blood Urea Nitrogen 12 mg/dL (6-20); Calcium 8.6 mg/dL (8.5-10.5); Carbon Dioxide 30 mmol/L (22-29); Chloride 98 mmol/L (98-107); Globulin 3.8 g/dL (1.3-4.6); Glomerular Filtration Rate 103.8 mL/min (90-130); Glucose 85 mg/dL (65-115); Osmolality Calculated 281 mOsm/kg (285-295); Potassium 3.9 mmol/L (3.5-5.1); Sodium 136 mmol/L (136-145); Thyroid Stimulating Hormone 2.54 uIU/mL (0.27-4.20); Total Bilirubin 0.3 mg/dL (0.15-1.2); Vitamin B12 483 pg/mL (232-1245)
== END 2024-04-18 23:59 | disposition home or self-care (01) ==
PROVIDERS: Internal Medicine Hematology & Oncology; PCP Internal Medicine Medical Oncology; Visit Provider Internal Medicine Medical Oncology
DX: C50.411 Malignant neoplasm of upper-outer quadrant of right female breast (principal); D64.9 Anemia, unspecified; Z79.899 Other long term (current) drug therapy; N63.0 Unspecified lump in unspecified breast
CPT/HCPCS: 36415; 80053; 82607; 84443; 85025

== ENCOUNTER → 2024-03-31 14:12 | Outpatient (BNVA) | payer BC, SELFPAY | PROVIDERS: PCP Internal Medicine Medical Oncology; Visit Provider Podiatrist Foot & Ankle Surgery | DX: M72.2 Plantar fascial fibromatosis; G57.92 Unspecified mononeuropathy of left lower limb; M79.671 Pain in right foot; M79.672 Pain in left foot | CPT/HCPCS: 73630 ==

== ENCOUNTER 2024-05-06 08:30 | Oncology outpatient (recurring) (ONCR) | payer BC, SELFPAY ==
--- NOTE | 2024-04-20 09:30 | PETR_ITS ---
PROCEDURE INFORMATION: Exam: PET/CT Skull Base to Mid-thigh Exam date and time: 04/20/2024 10:01 AM Age: 53 years old Clinical indication: Condition or disease; Primary cancer: Breast cancer; Prior surgery; Surgery date: 1-6 months; Additional info: Restaging breast cancer LABS AND CLINICAL REPORTS: Glucose: 113 mg/dl Treatment strategy for malignancy (PET staging): Initial Staging (PI) TECHNIQUE: Imaging protocol: Following at least four-hour fasting and following the injection of radiopharmaceutical, low dose CT images were obtained. Then, PET images were obtained. Attenuation corrected images were constructed using the CT scan. Fused images of PET and CT were reviewed. The standardized uptake values (SUV) reported below are maximum values within a region of interest, expressed in gm/ml. Exam includes orbital meatal line to mid-thigh. Radiopharmaceutical: 13.73 mCi F-18 FDG (Fluorodeoxyglucose), IV. Time of imaging post radiopharmaceutical administration: 1 hour Injection site: Left antecubital COMPARISON: Ultrasound right breast 11/05/2023, CT-guided radiotherapy planning 01/08/2023 CT abdomen pelvis w con* [id number] 05/21/2022 10:27 AM, mammogram and bilateral breast ultrasound 03/25/2022 FINDINGS: Limitations: The examination is slightly technically suboptimal secondary to the scan to injection time outside of recommended parameters (45-75 minutes). Reported scan to injection time of 44.6 minutes. Injection to scan times outside of recommended parameters can result in decreased PET sensitivity and limit the utility of comparison of SUV values to prior or subsequent exams. Brain: Visualized brain has normal physiologic uptake. Pharynx: No abnormal uptake. Larynx: No abnormal uptake. Lungs, pleura and trachea: No abnormal uptake. Mild non radiotracer avid streaky density adjacent to the pleural surface in the anterior right upper lobe and right middle lobe is likely related to post treatment changes. Heart: Normal physiologic uptake. Mediastinal space: No abnormal uptake. Liver: No abnormal uptake. Gallbladder and biliary ducts: No abnormal uptake. Cholecystectomy clips are present. Pancreas: No abnormal uptake. Spleen: No abnormal uptake. Adrenal glands: No abnormal uptake. Kidneys and ureters: Normal physiologic uptake. Stomach and bowel: No abnormal uptake. Vasculature: No abnormal uptake. Lymph nodes: No abnormal uptake. No lymphadenopathy in the head, neck, chest, abdomen, pelvis, and extremities. Skeleton: No abnormal uptake in the visualized axial and appendicular skeleton. Degenerative changes within the spine are present. Healed lateral right 7th and 8th rib fractures are noted. Soft tissues: Postoperative changes involving the right breast and the right anterior wall of the lower abdomen and pelvis are noted likely related to TRAM flap reconstructive surgery. Mild uptake within regions of streaky linear soft tissue density in the right breast likely related to postoperative scarring is noted, SUV max 2.5. Uptake in the region of the rectus abdominis muscle in the inferior abdomen and right pelvis is also likely related to postoperative inflammatory changes, SUV max 3.7 on series 3, image 162. METRICS: Mediastinal blood pool: SUV max 2.6 There is a left breast implant. PET/PET skull to thigh INIT [id number] IMPRESSION: 1. No evidence of radiotracer avid malignancy. 2. Mild radiotracer uptake in regions of postoperative changes involving the right breast and the anterior right inferior abdominal and pelvic wall is likely related to postoperative inflammatory changes. 3. Non radiotracer avid streaky density in the anterior right lung is noted likely related to post treatment changes/fibrosis. 4. Additional nonurgent findings as detailed above.
[2024-05-06 08:37] LABS: Basophils % 0.5 %; Eosinophils # 0.3 10^3/uL (0.0-0.8); Eosinophils % 3.8 %; Hematocrit 35.7 % (36-47); Lymphocytes # 2.4 10^3/uL (0.8-4.8); Lymphocytes % 27.8 %; Mean Corpuscular HGB Conc 33.3 g/dL (30-55); Mean Corpuscular Hemoglobin 30.8 pg (27-33); Mean Corpuscular Volume 92.5 fl (85-98); Mean Platelet Volume 8.6 fL (7.4-10.4); Monocytes # 0.4 10^3/uL (0.2-0.9); Monocytes % 5.2 %; Neutrophils # 5.28 10^3/uL (1.8-7.7); Neutrophils % 62.2 %; Nucleated Red Blood Cells % 0 %; Platelet Count 276 10^3/cmm (157-399); Red Blood Count 3.86 10^6/uL (3.85-5.65); Red Cell Distribution Width 13.9 % (12.1-15.1); White Blood Count 8.48 10^3/uL (3.29-11.43)
[2024-05-06 08:53] LABS: Albumin Level 4.2 g/dL (3.5-5.2); Alkaline Phosphatase 114 U/L (35-105); Aspartate Amino Transferase 27 U/L (0-32); Blood Urea Nitrogen 10 mg/dL (6-20); Calcium 9.1 mg/dL (8.5-10.5); Carbon Dioxide 30 mmol/L (22-29); Chloride 98 mmol/L (98-107); Globulin 3.8 g/dL (1.3-4.6); Glomerular Filtration Rate 103.8 mL/min (90-130); Glucose 132 mg/dL (65-115); Osmolality Calculated 285 mOsm/kg (285-295); Sodium 137 mmol/L (136-145); Total Bilirubin 0.3 mg/dL (0.15-1.2)
[2024-05-06 09:03] LABS: Alanine Aminotransferase 18 U/L (0-33)
== END 2024-05-19 23:59 | disposition home or self-care (01) ==
PROVIDERS: PCP Internal Medicine Medical Oncology; Visit Provider Internal Medicine Medical Oncology
DX: C50.411 Malignant neoplasm of upper-outer quadrant of right female breast; Z53.9 Procedure and treatment not carried out, unspecified reason
CPT/HCPCS: 36415; 78815; 80053; 85025; A9552

== ENCOUNTER 2024-09-22 09:55 | Oncology outpatient (recurring) (ONCR) | payer BC, SELFPAY ==
[2024-09-22 10:30] LABS: Basophils % 0.6 %; Eosinophils # 0.1 10^3/uL (0.0-0.8); Eosinophils % 1.7 %; Hematocrit 31.9 % (36-47); Lymphocytes # 2.3 10^3/uL (0.8-4.8); Lymphocytes % 35.9 %; Mean Corpuscular HGB Conc 34.8 g/dL (30-55); Mean Corpuscular Volume 97.9 fl (85-98); Mean Platelet Volume 8.3 fL (7.4-10.4); Monocytes # 0.3 10^3/uL (0.2-0.9); Monocytes % 4.8 %; Neutrophils # 3.65 10^3/uL (1.8-7.7); Neutrophils % 56.8 %; Nucleated Red Blood Cells % 0 %; Platelet Count 303 10^3/cmm (157-399); Red Blood Count 3.26 10^6/uL (3.85-5.65); White Blood Count 6.43 10^3/uL (3.29-11.43)
[2024-09-22 10:44] LABS: Alanine Aminotransferase 14 U/L (0-33); Albumin Level 4.4 g/dL (3.5-5.2); Alkaline Phosphatase 104 U/L (35-105); Anion Gap 16.9 (5-19); Aspartate Amino Transferase 20 U/L (0-32); Blood Urea Nitrogen 7 mg/dL (6-20); Calcium 9.5 mg/dL (8.5-10.5); Carbon Dioxide 26 mmol/L (22-29); Chloride 98 mmol/L (98-107); Globulin 3.6 g/dL (1.3-4.6); Glomerular Filtration Rate 74.5 mL/min (90-130); Glucose 91 mg/dL (65-115); Osmolality Calculated 282 mOsm/kg (285-295); Potassium 3.9 mmol/L (3.5-5.1); Sodium 137 mmol/L (136-145); Total Bilirubin 0.4 mg/dL (0.15-1.2)
[2024-09-22 11:00] LABS: Slide Review Slide Review Perform
== END 2024-10-19 23:59 | disposition home or self-care (01) ==
PROVIDERS: Visit Provider Internal Medicine Medical Oncology
DX: C50.911 Malignant neoplasm of unspecified site of right female breast (principal)
CPT/HCPCS: 36415; 80053; 85025

== ENCOUNTER 2024-10-22 09:29 | Emergency (ER) | payer BC, SELFPAY ==
[2024-10-22 09:59] VITALS: BP 113/76; PULSE 78; RESP 18; TEMP 36.7; O2SAT 99; BMI 36.3
[2024-10-22 10:01] VITALS: O2SAT 98
--- NOTE | 2024-10-22 10:06 | ED_ITS ---
HPI - COVID General: Chief Complaint: COVID symptoms Stated Complaint: congestion Time Seen by Provider: 10/22/24 09:40 Source: patient Mode of arrival: ambulatory Limitations: no limitations Triage information: Has fever, cough or shortness of breath . Exposure to COVID + person last 14 days History of Present Illness: Patient is a 53-year-old female presents to ED today with complaints of fevers of up to 102, chills, diffuse bodyaches, nasal congestion, sinus pain/pressure, cough, diarrhea. Symptoms started 48 hours ago. She reportedly has had known COVID exposure. Recent airplane travel. She arrives with normal vital signs. She states she is immunocompromised as she is on oral chemotherapy for breast cancer. MD complaint: reported COVID exposure and has COVID symptoms Prior covid testing: no COVID 19 common symptoms: positive fever(s), chills, non-productive cough, body aches, nasal congestion and diarrhea; negative dyspnea, headache(s) or throat pain COVID 19 other sytmptoms: negative chest pain or dizziness Onset (ago): day(s) Severity: severe Pertinent comorbid conditions: immunocompromised state Treatment prior to arrival: none COVID Results: SARS-CoV-2 Antigen (Rapid) Negative (Negative) 01/27/24 16:18 SARS-CoV-2 RNA (RT-PCR) Not detected (NOT DETECTED) 10/26/20 1 1:16 SARS-CoV-2 (PCR) Not detected (NOT DETECT) 12/27/21 08:40 Coronavirus Type 229E (PCR) Detected (NOT DETECT) A 12/27/21 0 8:40 Coronavirus (PCR) Positive (Negative) A 10/22/24 10:07 Related Data Home Medications Medication Instructions Recorded Confirmed abemaciclib 100 mg tablet 100 mg PO BID 10/22/24 10/22/24 (Verzenio) ondansetron HCl 4 mg tablet 4 mg PO .Q6-8H 10/22/24 10/22/24 semaglutide (weight loss) 2.4 2.4 mg SUBCUT Q7D 10/22/24 10/22/24 mg/0.75 mL subcutaneous pen injector (Magdalenogovtess) Previous Rx's Medication Instructions Recorded exemestane 25 mg tablet 25 mg PO DAILY #90 tabs 05/07/24 lorazepam 0.5 mg tablet 0.5 mg PO BID PRN anxiety #60 tabs 05/20/24 nirmatrelvir 300 mg (150 mg See Rx Instructions PO .COMPLEX 10/22/24 x2)-ritonavir 100 mg tablet,dose #30 ea pack (Paxlovid) Allergies Allergy/AdvReac Type Severity Reaction Status Date / Time hydrocodone [From [place]] Allergy ariana Verified 05/06/24 08:40 alot-pt states has adverse reaction levofloxacin [From Levaquin] Allergy ALGY-Rash Verified 05/06/24 08:40 metoclopramide [From Reglan] Allergy ALGY-Anaphy Verified 05/06/24 08:40 laxis Penicillins Allergy ALGY-Rash Verified 05/06/24 08:40 Review of Systems Const: Reports: fever(s), chills and body aches Eyes: Denies: change in vision, blurry vision, photophobia, floaters or seeing flashes ENMT: Reports: nasal congestion and sinus pain; Denies: throat pain, odynophagia or ear or mastoid pain Card: Denies: chest pain Resp: Reports: non-productive cough and chest congestion; Denies: dyspnea, wheezing or hemoptysis GI: Reports: diarrhea; Denies: abdominal pain or hematemesis : Denies: flank pain, dysuria or hematuria Musc: Denies: neck pain, back pain, extremity pain, extremity swelling, joint pain or joint swelling Skin/Breast: Denies: rash Neuro: Denies: headache(s) or dizziness PFSH ED PFSH: Medical History Fibromyalgia Thrombosis of ovarian vein Breast cancer Osteoarthritis Chronic insomnia Chronic migraine Depression Acute adjustment disorder with anxiety PTSD (post-traumatic stress disorder) Vertigo Surgical History Port-A-Cath in place History of bilateral mastectomy History of tonsillectomy History of knee surgery Arthroscopic knee surgery x 2 History of hysterectomy for benign disease History of appendectomy History of laparoscopic cholecystectomy Family History Father Diabetes CAD (coronary artery disease) Denies family history of Dementia Cancer Social History Smoking and tobacco/nicotine status: unknown if used tobacco/nicotine Second hand smoke exposure: No Alcohol intake: former Substance/Drug Use: never Lives independently: Yes Household members: spouse Marital status: Highest education level completed: Some College, No Degree Current occupational status: unemployed Current gender identity: Female Physical Exam Const: COMMON NORMALS: no acute distress, average body habitus, patient oriented x3, no limitations, healthy appearing, alert and well nourished GENERAL APPEARANCE: cooperative ORIENTATION/CONSCIOUSNESS: Yes awake, Yes oriented to person, Yes oriented to place and Yes oriented to time HENMT: COMMON NORMALS: normocephalic, atraumatic, hearing grossly normal bilaterally, external ears normal, EAC's normal, TM's normal bilaterally, Normal external nose present, Normal nasal mucous membranes and turbinates present, moist oral mucous membranes and oropharynx normal HEAD & SCALP: normal to inspection, normocephalic and atraumatic FACE & SINUS: normal facial exam and sinuses nontender NOSE: Normal external nose present and Normal nasal mucous membranes and turbinates present EXTERNAL EAR: Yes external ears normal EXTERNAL AUDITORY CANAL: EAC's normal TYMPANIC MEMBRANE: TM's normal bilaterally MOUTH: Normal oral and palatal mucosa present and lip normal THROAT: posterior oropharynx normal, tonsils normal and uvula midline Eye: COMMON NORMALS: Equal, round and reactive pupils present, EOMs intact bilaterally and conjunctivae normal CONJUNCTIVA: Yes conjunctivae normal PUPIL: Yes Equal, round and reactive pupils present Neck/C-Spine: COMMON NORMALS: no lymphadenopathy Resp: COMMON NORMALS: normal respiratory effort and clear to auscultation bilaterally AUSCULTATION: clear to auscultation bilaterally Cardio: COMMON NORMALS: regular rate and regular rhythm RATE: regular rate RHYTHM: regular rhythm Extremity: GENERAL: Yes normal exam except as noted Neuro: COMMON NORMALS: patient oriented x3 SENSORIUM/ORIENTATION: Yes alert, Yes oriented to person, Yes oriented to place and Yes oriented to time Skin: COMMON NORMALS: no rashes or lesions noted GENERAL SKIN EXAM: no rashes or lesions noted Course Vital Signs: Vital signs: Vital Signs Temperature 98.1 F 10/22/24 09:59 Pulse Rate 78 10/22/24 09:59 Respiratory Rate 18 10/22/24 09:59 Blood Pressure 113/76 10/22/24 09:59 Pulse Oximetry 98 10/22/24 10:01 Oxygen Delivery Me thod Room Air 10/22/24 10:01 MDM - COVID Medical Decision Making Patient here with signs and symptoms of COVID after known positive COVID exposure. She was positive for COVID here. Will place on Paxlovid as she is in the 48-hour window and is immunocompromised. Return to ED precautions given. Differential Diagnosis Likely COVID 19 Medical Records I reviewed the patient's medical records. Lab Data I reviewed the patient's lab results. Laboratory Results Coronavirus (PCR) Positive (Negative) A 10/22/24 10:07 Influenza A (PCR) Negative (Negative) 10/22/24 10:07 Influenza Type B (PCR) Negative (Negative) 10/22/24 10:07 RSV (PCR) Negative (Negative) 10/22/24 10:07 SARS-CoV-2 Antigen (Rapid) Negative (Negative) 01/27/24 16:18 SARS-CoV-2 RNA (RT-PCR) Not detected (NOT DETECTED) 10/26/20 1 1:16 SARS-CoV-2 (PCR) Not detected (NOT DETECT) 12/27/21 08:40 Coronavirus Type 229E (PCR) Detected (NOT DETECT) A 12/27/21 0 8:40 Coronavirus (PCR) Positive (Negative) A 10/22/24 10:07 No radiology studies performed this visit Discharge Plan Discharge Patient Disposition: Home Clinical Impression: COVID Condition: Stable Prescriptions: New Paxlovid 300 mg (150 mg x 2)-100 mg tablets,dose pack See Rx Instructions .ROUTE .COMPLEX Qty: 30 0RF Rx Instructions: orally per package directions No Action lorazepam 0.5 mg tablet 0.5 mg PO BID PRN (Reason: anxiety) Qty: 60 2RF exemestane 25 mg tablet 25 mg PO DAILY Qty: 90 2RF Rx Instructions: must administer after a meal ondansetron HCl 4 mg tablet 4 mg PO .Q6-8H Wegovy 2.4 mg/0.75 mL pen injector 2.4 mg SUBCUT Q7D Verzenio 100 mg tablet 100 mg PO BID Rx Instructions: TAKE 1 TABLET TWICE A DAY. Discharge Orders: Discharge ED (Routine); Ordered 10/22/24 Ordered By: Britney Chino Patient Instructions: COVID-19 (Coronavirus Disease 2019) (ED) Activity Restrictions/Additional Instructions: As we discussed, I will call you in Paxlovid to your pharmacy on file. You need to quarantine, push fluids is much as possible, rest, and you may use Tylenol/Ibuprofen as needed for fevers and body aches. You may return to the emergency department for any further concerns you may have. Otherwise you can follow-up with primary care next week for reevaluation. I hope you begin to feel better soon. Coding Level of Care Code ED Pathology Supervisor for Reece Barnes
[2024-10-22 10:57] LABS: Influenza A NEGATIVE (Negative); Influenza B NEGATIVE (Negative); Respiratory Syncytial Virus Ce NEGATIVE (Negative)
[2024-10-22 11:12] LABS: Covid PCR Positive (Negative)
[2024-10-22 12:58] VITALS: BP 115/81; PULSE 74; RESP 16; O2SAT 97
== END 2024-10-22 11:23 | disposition home or self-care (01) ==
PROVIDERS: Emergency Provider Physician Assistant
DX: U07.1 COVID-19 (principal); Z11.52 Encounter for screening for COVID-19; Z85.3 Personal history of malignant neoplasm of breast
CPT/HCPCS: 87637; 99283

== ENCOUNTER 2024-12-13 12:29 | Outpatient (CLI) | payer BC, SELFPAY ==
[2024-12-13] MEDS: iohexol 350 mg/mL 500 mL Btl (per mL) PO (13:48)
[2024-12-13] MEDS: iohexol 350 mg/mL 500 mL Btl (per mL) IV (13:59)
--- NOTE | 2024-12-13 14:00 | CTR_ITS ---
PROCEDURE INFORMATION: Exam: CT Chest With Contrast; Diagnostic Exam date and time: 12/13/2024 1:51 PM Age: 53 years old Clinical indication: Other: Chest wall and ovarian; Prior surgery; Surgery date: 6+ months; Surgery type: Bilat breast, partial hyst, gb, trans flap; HX of breast cancer. Right side chest wall pain x 6 months, right ovarian pain; Additional info: Evaluate right chest wall and right ovarian pain TECHNIQUE: Imaging protocol: Diagnostic computed tomography of the chest with contrast. Radiation optimization: All CT scans at this facility use at least one of these dose optimization techniques: automated exposure control; mA and/or kV adjustment per patient size (includes targeted exams where dose is matched to clinical indication); or iterative reconstruction. Contrast material: OMNI 350; Contrast volume: 100 ml; Contrast route: INTRAVENOUS (IV); COMPARISON: PT PET skull to thigh INIT [id number] 04/20/2024 10:01 AM RADIATION DOSE METRICS: Total DLP (mGy-cm): 1212.13 FINDINGS: Lungs: No focal consolidation or other acute appearing pulmonary opacity. Pleural spaces: No pleural effusion or pneumothorax noted. Heart: There is no cardiomegaly. There is no pericardial effusion. Lymph nodes: No pathologically enlarged lymph nodes (by short axis size criteria). Vasculature: There is no aortic dissection. There is no aortic aneurysm. No pulmonary emboli. Bones/joints: No acute osseous abnormality. There is degenerative disease of the spine. Chronic deformity of the posterolateral aspect of the right 8th rib indicating prior fracture. Soft tissues: Status post left breast implant and right breast TRAM flap reconstruction with postop changes noted. There are inflammatory changes noted in the pectoralis muscle which may be due to postop changes or infection, there is no fluid collection noted. Recommend clinical correlation. PROCEDURE INFORMATION: Exam: CT Abdomen And Pelvis With Contrast Exam date and time: 12/13/2024 1:51 PM Age: 53 years old Clinical indication: Other: Chest wall and ovarian; Prior surgery; Surgery date: 6+ months; Surgery type: Bilat breast, partial hyst, gb, trans flap; HX of breast cancer. Right side chest wall pain x 6 months, right ovarian pain; Additional info: Evaluate right chest wall and right ovarian pain TECHNIQUE: Imaging protocol: Computed tomography of the abdomen and pelvis with contrast. Radiation optimization: All CT scans at this facility use at least one of these dose optimization techniques: automated exposure control; mA and/or kV adjustment per patient size (includes targeted exams where dose is matched to clinical indication); or iterative reconstruction. Contrast material: OMNI 350; Contrast volume: 100 ml; Contrast route: INTRAVENOUS (IV); COMPARISON: PT PET skull to thigh INIT [id number] 04/20/2024 10:01 AM RADIATION DOSE METRICS: Total DLP (mGy-cm): 1212.13 FINDINGS: Liver: The liver is unremarkable. Gallbladder and biliary ducts: Post cholecystectomy. Pancreas: Pancreas is unremarkable. No ductal dilation or peripancreatic inflammation. Spleen: The spleen is unremarkable. Adrenal glands: Adrenal glands are unremarkable. Kidneys and ureters: No hydronephrosis or nephrolithiasis. Bilateral subcentimeter renal hypodensities which are too small to characterize and likely represent renal cysts. Stomach and bowel: The stomach is markedly distended with contrast and food debris. Small and large bowel are normal in caliber without evidence of obstruction. There is contrast extending through the small bowel however, this has not which the terminal ileum. Diverticulosis without evidence of diverticulitis. Appendix: No evidence of appendicitis. Intraperitoneal space: No free intraperitoneal air. No fluid collection. Vasculature: There is no aortic aneurysm. Incidentally noted is a circumaortic left renal vein. Stable chronic findings in the right ovarian vein with calcifications in its proximal portion likely due to prior thrombosis. Lymph nodes: Stable prominent retroaortic nodes predominantly in the retrocaval region. Urinary bladder: Bladder is distended with no focal wall thickening. Reproductive: There has been a hysterectomy. No adnexal cysts or masses are identified. Bones/joints: No acute osseous abnormality. Soft tissues: Postop changes noted in the region of the right rectus abdominis muscle for the TRAM flap. There are inflammatory changes noted in the soft tissues in the right lower quadrant which likely due to postop findings, recommend clinical correlation. There is no fluid collection. There is a broad-based shallow spigelian hernia containing fat in the right lower quadrant. CT/CT chest abdpel w/*[id number] IMPRESSION: Status post right breast TRAM flap reconstruction with presumed postoperative changes noted. There are inflammatory changes noted in the right pectoralis muscle with no fluid collection, recommend clinical correlation. IMPRESSION: 1. Presumed postop changes in the right abdomen status post TRAM flap. There is no fluid collection. Recommend clinical correlation. 2. Fat containing right lower quadrant small spigelian hernia with a broad-base. COMMENTS: Consistent with the [employer]'s Incidental Findings Committee white paper (J Am Cristina Radiol 2018): Any incidental renal lesion less than 1 cm or classified as too small to characterize, or any incidental cystic renal lesion characterized as simple-appearing, is likely benign. No follow-up imaging is recommended for these lesions per consensus recommendations based on imaging criteria.
== END 2024-12-13 12:30 | disposition home or self-care (01) ==
PROVIDERS: Visit Provider Nurse Practitioner
DX: I82.890 Acute embolism and thrombosis of other specified veins (principal); C50.411 Malignant neoplasm of upper-outer quadrant of right female breast; R07.89 Other chest pain; R10.31 Right lower quadrant pain; Z98.890 Other specified postprocedural states; K43.9 Ventral hernia without obstruction or gangrene; M47.9 Spondylosis, unspecified; R93.7 Abnormal findings on diagnostic imaging of other parts of musculoskeletal system; Z85.3 Personal history of malignant neoplasm of breast; Z90.49 Acquired absence of other specified parts of digestive tract; R93.421 Abnormal radiologic findings on diagnostic imaging of right kidney; R93.422 Abnormal radiologic findings on diagnostic imaging of left kidney; K57.90 Diverticulosis of intestine, part unspecified, without perforation or abscess without bleeding; R93.89 Abnormal findings on diagnostic imaging of other specified body structures; R59.0 Localized enlarged lymph nodes
CPT/HCPCS: 71260; 74177

== ENCOUNTER 2024-12-15 13:45 | Oncology outpatient (recurring) (ONCR) | payer BC, SELFPAY ==
[2024-11-23 10:51] LABS: Basophils # 0.1 10^3/uL (0.0-0.1); Basophils % 0.9 %; Eosinophils # 0.1 10^3/uL (0.0-0.8); Eosinophils % 1.9 %; Hematocrit 32.8 % (36-47); Lymphocytes # 2.3 10^3/uL (0.8-4.8); Lymphocytes % 42.9 %; Mean Corpuscular HGB Conc 33.5 g/dL (30-55); Mean Corpuscular Hemoglobin 34.8 pg (27-33); Mean Corpuscular Volume 103.8 fl (85-98); Mean Platelet Volume 8.1 fL (7.4-10.4); Monocytes # 0.3 10^3/uL (0.2-0.9); Monocytes % 5.8 %; Neutrophils # 2.55 10^3/uL (1.8-7.7); Neutrophils % 47.9 %; Nucleated Red Blood Cells % 0 %; Platelet Count 387 10^3/cmm (157-399); Red Blood Count 3.16 10^6/uL (3.85-5.65); Red Cell Distribution Width 14.6 % (12.1-15.1); White Blood Count 5.32 10^3/uL (3.29-11.43)
[2024-11-23 11:09] LABS: Immunoglobulin IGA 334 mg/dL (70-400); Immunoglobulin IGG 1152 mg/dL (700-1600); Immunoglobulin IGM 99 mg/dL (40-230)
[2024-11-23 11:26] LABS: 25 Hydroxy Vitamin D 25 ng/mL (30-100); Alanine Aminotransferase 13 U/L (0-33); Albumin Level 4.5 g/dL (3.5-5.2); Alkaline Phosphatase 83 U/L (35-105); Aspartate Amino Transferase 19 U/L (0-32); Blood Urea Nitrogen 8 mg/dL (6-20); Calcium 9.8 mg/dL (8.5-10.5); Carbon Dioxide 31 mmol/L (22-29); Chloride 99 mmol/L (98-107); Creatinine Clr Calc Pharmacy 93.4955; Globulin 3.6 g/dL (1.3-4.6); Glomerular Filtration Rate 86.9 mL/min (90-130); Glucose 91 mg/dL (65-115); Osmolality Calculated 284 mOsm/kg (285-295); Sodium 138 mmol/L (136-145); Total Bilirubin 0.2 mg/dL (0.15-1.2); Total Protein 8.1 g/dL (6.6-8.7); Vitamin B12 640 pg/mL (232-1245)
[2024-12-15 13:31] LABS: Basophils # 0.1 10^3/uL (0.0-0.1); Basophils % 0.9 %; Eosinophils # 0.1 10^3/uL (0.0-0.8); Eosinophils % 1.6 %; Hematocrit 32.8 % (36-47); Lymphocytes % 36.2 %; Mean Corpuscular HGB Conc 34.1 g/dL (30-55); Mean Corpuscular Hemoglobin 35.2 pg (27-33); Mean Corpuscular Volume 103.1 fl (85-98); Mean Platelet Volume 8.3 fL (7.4-10.4); Monocytes # 0.2 10^3/uL (0.2-0.9); Monocytes % 4.4 %; Neutrophils # 3.09 10^3/uL (1.8-7.7); Neutrophils % 56.5 %; Nucleated Red Blood Cells % 0 %; Platelet Count 373 10^3/cmm (157-399); Red Blood Count 3.18 10^6/uL (3.85-5.65); White Blood Count 5.47 10^3/uL (3.29-11.43)
[2024-12-15 13:54] LABS: Alanine Aminotransferase 15 U/L (0-33); Albumin Level 4.4 g/dL (3.5-5.2); Alkaline Phosphatase 93 U/L (35-105); Anion Gap 14.1 (5-19); Aspartate Amino Transferase 25 U/L (0-32); Blood Urea Nitrogen 9 mg/dL (6-20); Calcium 9.1 mg/dL (8.5-10.5); Carbon Dioxide 29 mmol/L (22-29); Chloride 100 mmol/L (98-107); Creatinine Clr Calc Pharmacy 73.3257; Globulin 3.3 g/dL (1.3-4.6); Glucose 134 mg/dL (65-115); Osmolality Calculated 289 mOsm/kg (285-295); Potassium 4.1 mmol/L (3.5-5.1); Sodium 139 mmol/L (136-145); Total Bilirubin 0.3 mg/dL (0.15-1.2); Total Protein 7.7 g/dL (6.6-8.7)
== END 2024-12-17 23:59 | disposition home or self-care (01) ==
PROVIDERS: Internal Medicine Medical Oncology; Nurse Practitioner; Visit Provider Internal Medicine
DX: C50.411 Malignant neoplasm of upper-outer quadrant of right female breast (principal); C50.911 Malignant neoplasm of unspecified site of right female breast; Z53.9 Procedure and treatment not carried out, unspecified reason
CPT/HCPCS: 36415; 80053; 82306; 82607; 82784; 84443; 85025

== ENCOUNTER 2025-01-11 12:16 | Oncology outpatient (recurring) (ONCR) | payer BC, SELFPAY ==
[2025-01-11 12:47] LABS: Basophils # 0.1 10^3/uL (0.0-0.1); Basophils % 0.9 %; Eosinophils % 0.7 %; Hematocrit 32.8 % (36-47); Lymphocytes % 34.3 %; Mean Corpuscular HGB Conc 34.5 g/dL (30-55); Mean Corpuscular Hemoglobin 34.5 pg (27-33); Mean Platelet Volume 8.1 fL (7.4-10.4); Monocytes # 0.3 10^3/uL (0.2-0.9); Monocytes % 5.4 %; Neutrophils # 3.37 10^3/uL (1.8-7.7); Neutrophils % 58.4 %; Nucleated Red Blood Cells % 0 %; Platelet Count 274 10^3/cmm (157-399); Red Blood Count 3.28 10^6/uL (3.85-5.65); Red Cell Distribution Width 13.2 % (12.1-15.1); White Blood Count 5.77 10^3/uL (3.29-11.43)
[2025-01-11 13:15] LABS: Alanine Aminotransferase 14 U/L (0-33); Albumin Level 4.7 g/dL (3.5-5.2); Alkaline Phosphatase 88 U/L (35-105); Anion Gap 16.4 (5-19); Aspartate Amino Transferase 33 U/L (0-32); Blood Urea Nitrogen 9 mg/dL (6-20); CA 15-3 14.1 U/mL (0-25); Calcium 9.6 mg/dL (8.5-10.5); Carbon Dioxide 27 mmol/L (22-29); Chloride 95 mmol/L (98-107); Globulin 3.3 g/dL (1.3-4.6); Glomerular Filtration Rate 57.4 mL/min (90-130); Glucose 82 mg/dL (65-115); Osmolality Calculated 276 mOsm/kg (285-295); Potassium 4.4 mmol/L (3.5-5.1); Sodium 134 mmol/L (136-145); Total Bilirubin 0.3 mg/dL (0.15-1.2)
== END 2025-01-17 23:59 | disposition home or self-care (01) ==
PROVIDERS: Visit Provider Internal Medicine Medical Oncology
DX: C50.411 Malignant neoplasm of upper-outer quadrant of right female breast (principal); Z95.828 Presence of other vascular implants and grafts
CPT/HCPCS: 36415; 80053; 85025; 86300

== ENCOUNTER 2025-02-08 12:20 | Oncology outpatient (recurring) (ONCR) | payer BC, SELFPAY ==
[2025-02-08 12:39] LABS: Basophils # 0.1 10^3/uL (0.0-0.1); Eosinophils # 0.1 10^3/uL (0.0-0.8); Hematocrit 31.4 % (36-47); Lymphocytes # 2.1 10^3/uL (0.8-4.8); Lymphocytes % 36.1 %; Mean Corpuscular HGB Conc 34.7 g/dL (30-55); Mean Corpuscular Hemoglobin 35.3 pg (27-33); Mean Corpuscular Volume 101.6 fl (85-98); Mean Platelet Volume 8.3 fL (7.4-10.4); Monocytes # 0.4 10^3/uL (0.2-0.9); Monocytes % 6.2 %; Neutrophils # 3.25 10^3/uL (1.8-7.7); Neutrophils % 55.5 %; Nucleated Red Blood Cells % 0 %; Platelet Count 285 10^3/cmm (157-399); Red Blood Count 3.09 10^6/uL (3.85-5.65); White Blood Count 5.85 10^3/uL (3.29-11.43)
[2025-02-08 13:09] LABS: Alanine Aminotransferase 16 U/L (0-33); Albumin Level 4.6 g/dL (3.5-5.2); Alkaline Phosphatase 83 U/L (35-105); Anion Gap 15.3 (5-19); Aspartate Amino Transferase 25 U/L (0-32); Blood Urea Nitrogen 8 mg/dL (6-20); CA 15-3 13.4 U/mL (0-25); Calcium 9.7 mg/dL (8.5-10.5); Carbon Dioxide 27 mmol/L (22-29); Chloride 99 mmol/L (98-107); Globulin 3.1 g/dL (1.3-4.6); Glomerular Filtration Rate 64.8 mL/min (90-130); Glucose 71 mg/dL (65-115); Osmolality Calculated 281 mOsm/kg (285-295); Potassium 4.3 mmol/L (3.5-5.1); Sodium 137 mmol/L (136-145); Total Bilirubin 0.2 mg/dL (0.15-1.2); Total Protein 7.7 g/dL (6.6-8.7)
== END 2025-02-16 23:59 | disposition home or self-care (01) ==
PROVIDERS: Visit Provider Internal Medicine Medical Oncology
DX: C50.411 Malignant neoplasm of upper-outer quadrant of right female breast (principal)
CPT/HCPCS: 36415; 80053; 85025; 86300

== ENCOUNTER 2025-02-28 14:22 | Oncology outpatient (recurring) (ONCR) | payer BC, SELFPAY ==
--- NOTE | 2025-02-28 15:30 | US_ITS ---
WS: [id number] ULTRASOUND BREAST RIGHT TECHNIQUE: Ultrasound right breast focused area of concern. CLINICAL INFORMATION: right axillary nodules COMPARISON: Ultrasound 11/05/2023 FINDINGS: Ultrasound RIGHT breast in the areas of patient concern. Ultrasound RIGHT axilla in the area of palpable concern demonstrates a tiny benign-appearing cyst measuring 3 mm. Additional area of concern demonstrates dense underlying parenchymal tissue. No suspicious lesions to target for biopsy. Findings have a benign appearance US/US breast RT limited* [id number] IMPRESSION: BI-RADS 2 benign
== END 2025-03-19 23:59 | disposition home or self-care (01) ==
LOC: RAD 14:22 → ONCMED 03-01 10:26
PROVIDERS: Visit Provider Nurse Practitioner Family
DX: C50.411 Malignant neoplasm of upper-outer quadrant of right female breast (principal); Z95.828 Presence of other vascular implants and grafts
CPT/HCPCS: 76642

== ENCOUNTER 2025-03-15 13:54 | Outpatient (CLI) | payer BC, SELFPAY | END 2025-03-15 13:55 | disposition home or self-care (01) | LOC: SPT 13:54 | PROVIDERS: Visit Provider Podiatrist Foot & Ankle Surgery | DX: Z46.89 Encounter for fitting and adjustment of other specified devices (principal); M72.2 Plantar fascial fibromatosis | CPT/HCPCS: L3030 ==

== ENCOUNTER 2025-04-12 12:06 | Oncology outpatient (recurring) (ONCR) | payer BC, SELFPAY ==
[2025-04-12 12:37] LABS: Basophils # 0.1 10^3/uL (0.0-0.1); Basophils % 1.3 %; Eosinophils # 0.1 10^3/uL (0.0-0.8); Eosinophils % 1.7 %; Hematocrit 30.2 % (36-47); Lymphocytes # 1.8 10^3/uL (0.8-4.8); Lymphocytes % 38.5 %; Mean Corpuscular HGB Conc 34.8 g/dL (30-55); Mean Corpuscular Hemoglobin 34.9 pg (27-33); Mean Corpuscular Volume 100.3 fl (85-98); Mean Platelet Volume 8.5 fL (7.4-10.4); Monocytes # 0.3 10^3/uL (0.2-0.9); Monocytes % 5.9 %; Neutrophils # 2.41 10^3/uL (1.8-7.7); Neutrophils % 52.4 %; Nucleated Red Blood Cells % 0 %; Platelet Count 296 10^3/cmm (157-399); Red Blood Count 3.01 10^6/uL (3.85-5.65); Red Cell Distribution Width 13.7 % (12.1-15.1); Reticulocyte % 1.8 % (0.5-2.0)
[2025-04-12 13:15] LABS: Alanine Aminotransferase 13 U/L (0-33); Albumin Level 4.5 g/dL (3.5-5.2); Alkaline Phosphatase 91 U/L (35-105); Anion Gap 14.2 (5-19); Aspartate Amino Transferase 25 U/L (0-32); Blood Urea Nitrogen 9 mg/dL (6-20); Calcium 9.5 mg/dL (8.5-10.5); Carbon Dioxide 27 mmol/L (22-29); Chloride 98 mmol/L (98-107); Ferritin 275 ng/mL (15-150); Globulin 3.2 g/dL (1.3-4.6); Glomerular Filtration Rate 64.8 mL/min (90-130); Glucose 84 mg/dL (65-115); Iron 87 ug/dL (37-145); Lactate Dehydrogenase 167 U/L (135-214); Osmolality Calculated 278 mOsm/kg (285-295); Percent Saturation 27.4 % (20-50); Potassium 4.2 mmol/L (3.5-5.1); Sodium 135 mmol/L (136-145); Total Bilirubin 0.3 mg/dL (0.15-1.2); Total Iron Binding Capacity 317 mcg/dl; Total Protein 7.7 g/dL (6.6-8.7); Unsaturated Iron Binding 230 ug/dL (112-347); Vitamin B12 535 pg/mL (232-1245)
[2025-04-12 13:17] LABS: Folate Level 16.1 ng/mL (4.8-37.3)
== END 2025-04-18 23:59 | disposition home or self-care (01) ==
PROVIDERS: Internal Medicine; Visit Provider Nurse Practitioner Family
DX: C50.411 Malignant neoplasm of upper-outer quadrant of right female breast (principal); Z95.828 Presence of other vascular implants and grafts; N60.01 Solitary cyst of right breast
CPT/HCPCS: 36415; 80053; 82607; 82728; 82746; 83010; 83540; 83550; 83615; 85025; 85045; 86300

== ENCOUNTER → 2025-04-28 13:24 | Outpatient (BNVA) | payer BC, SELFPAY | PROVIDERS: Visit Provider Nurse Practitioner Family | DX: J02.9 Acute pharyngitis, unspecified (principal) | CPT/HCPCS: 87071; 87880 ==

== ENCOUNTER 2025-05-16 13:56 | Oncology outpatient (recurring) (ONCR) | payer BC, SELFPAY ==
[2025-05-16 14:21] LABS: Hematocrit 30.1 % (36-47); Hemoglobin 10.90 g/dL (11.27-16.99); Mean Corpuscular HGB Conc 36.2 g/dL (30-55); Mean Corpuscular Hemoglobin 36.3 pg (27-33); Mean Corpuscular Volume 100.3 fl (85-98); Nucleated Red Blood Cells % 0 %; Platelet Count 288 10^3/cmm (157-399); Red Blood Count 3.00 10^6/uL (3.85-5.65); White Blood Count 7.96 10^3/uL (3.29-11.43)
[2025-05-16 14:42] LABS: Alanine Aminotransferase 25 U/L (0-33); Albumin Level 4.4 g/dL (3.5-5.2); Alkaline Phosphatase 99 U/L (35-105); Anion Gap 16.9 (5-19); Aspartate Amino Transferase 31 U/L (0-32); Blood Urea Nitrogen 9 mg/dL (6-20); Calcium 9.6 mg/dL (8.5-10.5); Carbon Dioxide 26 mmol/L (22-29); Chloride 97 mmol/L (98-107); Creatinine Clr Calc Pharmacy 91.6787; Ferritin 240 ng/mL (15-150); Globulin 3.3 g/dL (1.3-4.6); Glucose 94 mg/dL (65-115); Iron 72 ug/dL (37-145); Osmolality Calculated 280 mOsm/kg (285-295); Potassium 3.9 mmol/L (3.5-5.1); Sodium 136 mmol/L (136-145); Total Iron Binding Capacity 328 mcg/dl; Total Protein 7.7 g/dL (6.6-8.7); Unsaturated Iron Binding 256 ug/dL (112-347)
[2025-05-16 14:56] LABS: Vitamin B12 634 pg/mL (232-1245)
== END 2025-05-19 23:59 | disposition home or self-care (01) ==
LOC: ONCMED 13:57
PROVIDERS: Internal Medicine; Visit Provider Nurse Practitioner Family
DX: C50.411 Malignant neoplasm of upper-outer quadrant of right female breast (principal); Z95.828 Presence of other vascular implants and grafts; Z53.9 Procedure and treatment not carried out, unspecified reason; N60.01 Solitary cyst of right breast
CPT/HCPCS: 36415; 80053; 82607; 82728; 82746; 83010; 83540; 83550; 83615; 85025; 85045